=== PATIENT | male | born 1955 | race Caucasian/White ===

== ENCOUNTER 2024-09-16 15:28 | Outpatient (CLI) | payer OTHER, SELFPAY ==
[2024-09-16 16:11] LABS: Strep Group A RT-PCR NOT DETECTED (Negative)
[2024-09-16 16:20] LABS: SARS-CoV-2 RNA PCR Negative (Negative)
[2024-09-16 16:21] LABS: Influenza A QL RT-PCR Positive (Negative); Influenza B QL RT-PCR Negative (Negative); RSV RNA, RT-PCR Negative (Negative)
== END 2024-09-16 15:29 | disposition home or self-care (01) ==
PROVIDERS: PCP Family Medicine; Visit Provider Registered Nurse
DX: R68.89 Other general symptoms and signs (principal); J10.1 Influenza due to other identified influenza virus with other respiratory manifestations
CPT/HCPCS: 87637; 87651

== ENCOUNTER 2025-04-02 11:29 | Outpatient (CLI) | payer OTHER, SELFPAY ==
--- NOTE | ~2025-04-02 | CT_ITS ---
Clinical Indication: Hepatocellular carcinoma CT Scan of the Chest, Abdomen, and Pelvis with Contrast: Technique: Contiguous sections were acquired throughout the chest, abdomen, and pelvis after intraven ous administration of 100 cc of Omnipaque 350. Dose reduction technique was used on this scan by uti lizing automated exposure control and iterative reconstruction technique. The dose-length product (DL P) was 339.40 mGy-cm. Findings: Right hilar lymph node measures 13 mm in short axis. No other mediastinal or hilar lymphadenopathy. N o axillary lymphadenopathy. The mediastinal vascular structures appear normal. There is no evidence of pleural or pericardial effusion. The lungs are clear. No pulmonary nodules or infiltrates are noted. There are 4 distinct hepatic masses, with heterogeneous postcontrast enhancement. Largest masses in t he anterior right hepatic lobe measuring 6.7 cm in diameter. Multiple calcified gallstones are present. Spleen is enlarged, measuring 16 cm in length. The pancrea s, adrenals and kidneys are within normal limits. Infrarenal abdominal aortic aneurysm measures 3.7 c m in diameter, with extensive atherosclerotic calcifications present.. No lymphadenopathy. No bowel obstruction or bowel wall thickening. There is no evidence to suggest acute appendicitis. Urinary bladder is unremarkable. No pelvic mass evident. No ascites. Impression: 4 separate hepatic masses, as detailed above, compatible multifocal hepatocellular carcinoma versus o ther metastatic/neoplastic disease. Single mildly enlarged right hilar lymph node, indeterminate. Metastatic node is not excluded. Cholelithiasis. Splenomegaly. 3.7 cm infrarenal abdominal aortic aneurysm. Reviewed, dictated and finalized at [facility]. Impression: 4 separate hepatic masses, as detailed above, compatible multifocal hepatocellu lar carcinoma versus other metastatic/neoplastic disease. Single mildly enlarged right hilar lymph node, indeterminate. Metastatic node i s not excluded. Cholelithiasis. Splenomegaly. 3.7 cm infrarenal abdominal aortic aneurysm.
[2025-04-02 11:54] LABS: Hematocrit 37.3 % (37.0-46.0); Hemoglobin 12.7 g/dL (12.4-15.3); Immature Platelet Fraction Pct 2.0 % (1.0-7.0); Mean Corpuscular HGB Conc 34.0 g/dL (32-36); Mean Corpuscular Hemoglobin 32.0 pg (27.0-31.0); Mean Corpuscular Volume 94.0 fL (78.0-102.0); Platelet Count Result 54 K/mm3 (150-420); Red Blood Count 3.97 M/mm3 (4.70-6.10); White Blood Count 3.8 K/mm3 (4.8-10.8)
--- OUTSIDE RECORDS SUMMARY | 2025-04-02 12:03 | XMS_ITS | Clinical Summary ---
Author Organization [facility] Address [address] [place] [address] Care Team Providers Care Sourcing Analyst Name Role Phone Hector Rosenberg MD Unavailable [phone] Caprice Rosales MD Unavailable Krishna Gao MD Primary Care Provider Allergies Active Allergy Reactions Criticality Noted Date Comments Codeine Chest pressure,Unknown 10/01/2015 Diphenhydramine Hyperactive,Unknown 10/01/2015 Medications carvedilol (COREG) 12.5 MG tablet Take 1 tablet by mouth 2 (two) times daily. 5 Active ISOSORBIDE MONONITRATE ER 120 MG TABLET SR 24 HR 24 hr tablet TAKE 1 TABLET EVERY MORNING 30 tablet 3 9 Active PROAIR HFA 108 (90 Base) MCG/ACT inhaler INHALE TWO PUFFS BY MOUTH EVERY SIX HOURS DIRECTED 0 Active SPIRIVA HANDIHALER 18 MCG inhalation capsule INHALE THE CONTENTS OF ONE CAPSULE ONCE A DAY 0 Active nitroglycerin 0.4 MG SL tablet DISSOLVE ONE TABLET UNDER TONGUE NEEDED 0 Active pantoprazole EC 40 MG tablet Take 40 mg by mouth 2 (two) times daily. 0 Active AMLODIPINE 5 MG tablet TAKE 1 TABLET BY MOUTH EVERY DAY 30 tablet 3 1 Active isosorbide mononitrate ER (IMDUR) 120 MG 24 hr tablet Take 1 tablet (120 mg total) by mouth daily for 28 days. 28 tablet 4 Active Active Problems Problem Noted Date Diagnosed Date Near syncope 08/03/2018 Esophageal varices ([facility]) 06/10/2017 Iron deficiency 12/05/2016 Atherosclerosis of coronary artery 12/05/2016 Esophageal reflux 02/16/2016 Chronic cough 11/06/2015 Tobacco abuse 10/01/2015 Thrombocytopenia 10/01/2015 Anemia 09/30/2015 Gastrointestinal hemorrhage 09/30/2015 Liver cirrhosis ([facility]) 09/30/2015 Splenomegaly 09/30/2015 Subsequent non-ST elevation (NSTEMI) myocardial infarction ([facility]) 09/30/2015 Hyperlipidemia Hypertension Coronary artery disease of n ative artery of [place] heart with stable angina pectoris Overview (10/23/2016): small NSTEMI 06/2015 Thrombocytopenia Overview (10/23/2016): 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 Encounters Date Type Department Care Team Description 03/19/2025 Travel from Last 3 Months Family History Medical History Relation Comments Heart Attack Brother Stent Cardiac Brother Valve Disease Brother Heart Attack Father [place] Father Stent Cardiac Mother Relation Status Comments Brother Alive Father Mother Alive Social History Tobacco Use Types Packs/Day Years Used Date Smoking Tobacco: Every Day Cigarettes 0.5 58 Smokeless Tobacco: Never Tobacco Cessation:Ready to Q uit: No; Counseling Given: Yes Alcohol Use Standard Drinks/Week Comments No 0 (1 standard drink = 0.6 oz pur e alcohol) Sex and Gender Information Value Date Recorded Sex Assigned at Male 11/07/2024 9:55 AM RECREATION INSTRUCTOR Legal Sex Male 2:01 AM CDT Gender Identity Not on file Sexual Orientation Not on file Occupation Industry Job Start Date Job End Date Disability Not on file Not on file Not on file Last Filed Vital Signs Vital Sign Reading Time Taken Comments Blood Pressure 137/74 06/27/2024 3:15 PM CDT Pulse 69 06/27/2024 3:15 PM CDT Temperature 36.3 C (97.4 F) 06/27/2024 1:14 PM CDT Respiratory Rate 17 06/27/2024 3:15 PM CDT Oxygen Saturation 97% 06/27/2024 3:15 PM CDT Inhaled Oxygen Concentration - - Weight 59 kg (130 lb) 06/27/2024 1:14 PM CDT Height 170.2 cm (5' 7) 06/27/2024 1:14 PM CDT Body Mass Index 20.36 06/27/2024 1:14 PM CDT Plan of Treatment Health Maintenance Due Date Last Done Comments Colorectal Cancer Screening Colonoscopy (10 Years) 1957 Zoster Vaccines (1 of 2) 2007 Pneumococcal Vaccine: 50+ Years (2 of 2 - PCV) 09/18/2015 09/18/2014 RSV Immunization or 60+ Years (1 - Risk 60-74 years 1-dose series) 2017 ASCVD LDL 02/21/2019 02/21/2018 COVID-19 Vaccine ( - season) 2024 DTaP, Tdap and Td Vaccines (2 - Td or Tdap) 08/20/2029 08/20/2019, 09/18/2014 Hepatitis C Completed 07/08/2020, 12/2018, 08/21/2019, Additional history exists AAA SCREENING Completed 03/16/2023, 02/17, 01/19/2023, Additional history exists Meningococcal B Vaccine Aged Out No l onger eligible based on patient's age to complete this topic Meningococcal Vaccine Aged Out No adolfo eden eligible based on patient's age to complete this topic RSV Immunizations Under 20 Months Aged Out No longer eligible based on patient's age to complete this topic Procedures Procedure Name Priority Date/Time Associated Diagnosis Comments CT CHEST W CON Routine 09/27/2019 9:56 AM RECREATION INSTRUCTOR Abnormal chest xray LIPID PANEL Routine 02/21/2018 from Last 3 Months or Most Recently Relevant to Health Maintenance Results * CT CHEST W CON (09/27/2019 9:56 AM RECREATION INSTRUCTOR) Anatomical Region Laterality Modality Chest Computed Tomogra phy 09/27/2019 2:13 PM RECREATION INSTRUCTOR Impressions 09/27/2019 2:24 PM RECREATION INSTRUCTOR Impression: 1. Central bronchial wall thickening could indicate bronchitis and/or be attributable to smoking. 2. 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 3. Vascular disease as noted. Partially visualized is an infrarenal abdominal aortic aneurysm. Further workup is recommended. 4. Liver cirrhosis. Indeterminate lesions in the right lobe of the liver. Liver MRI is recommended. 5. Portal venous hypertension given the varices, splenomegaly. Heterogeneous spleen of indeterminate significance. 6. Cholelithiasis without gallbladder wall thickening. No sign of biliary obstruction. Interpreted By: Jared Salmeron, 09/27/2019 2:13 PM Narrative 09/27/2019 2:24 PM RECREATION INSTRUCTOR Date: 09/27/2019 9:56 AM. Exam: CT CHEST W CON Comparison: CT low-dose lung cancer screening dated 04/01/2019. CT chest dated 11/18/2015. Technique: Thin section images were obtained of the chest with IV contrast. 95 ml of Isovue-370 thru an existing IV site in the left antecubital fossa. Coronal and sagittal reconstructions. A dose lowering technique was used for this procedure, which may include, but is not limited to, dose reduction technique, automated exposure control, the use of iterative reconstruction, and ALARA (As Low As Reasonably Achievable)/ Image gently techniques. History: Productive cough. Abnormal chest x-ray. Findings: CHEST: The heart size is normal without pericardial effusion. There is scattered calcified coronary arterial disease. There is calcified disease in the thoracic aorta, but no aneurysm nor dissection. The great vessels originate without compromise. The central pulmonary arteries are patent. There is no lymphadenopathy within the chest. The tracheal and main bronchial airways are patent. There is central bronchial wall thickening which could indicate bronchitis or possibly be attributable to smoking. There is scant mucus layering in the yessenia. There are scattered nodules associated with the oblique fissures likely intrafissural lymph nodes. There are a few scattered small thin-walled cysts in the upper lungs which are stable. This is nonspecific, but could signify Langerhans cell histiocytosis. There are no consolidations nor pleural effusions. Visualized upper abdomen: There is a cirrhotic configuration of the liver. There are scattered small hypodense lesions in the right lobe of the liver some of which may represent cysts. Other lesions are indeterminate such as a 1.5 cm lesion in the superior anterior right lobe of the liver as seen on series 904 image 90. Overall, liver MRI is recommended. There is cholelithiasis and minimal gallbladder wall thickening. The bile ducts are normal in caliber. There is splenomegaly with scattered heterogeneity of the spleen. There are upper abdominal varices, recanalized umbilical vein, varices in the gastrohepatic ligament and paraesophageal varices. This indicates portal venous hypertension. The pancreas and adrenal glands appear normal. There is no hydronephrosis of the kidneys. There is considerable mixed plaque disease of the abdominal aorta. Partially visualized is a fusiform aneurysm of the abdominal aorta measuring at least 2.7 cm. Further workup is recommended. There are prominent, but nonenlarged lymph nodes in the retroperitoneum. The visualized intestines show no acute abnormality. There is no inflammation or free fluid in the upper abdomen. Osseous structures: There are moderate degenerative changes in the lower cervical spine. There is focal moderate to advanced disc disease at T11-T12. There are no acute osseous abnormalities. Procedure Note Jared Salmeron MD - 09/27/2019 Date: 09/27/2019 9:56 AM. Exam: CT CHEST W CON Comparison: CT low-dose lung cancer screening dated 04/01/2019. CT chest dated 11/18/2015. Technique: Thin section images were obtained of the chest with IVcontrast. 95 ml of Isovue-370 thru an existing IV site in the left antecubitalfossa. Coronal and sagittal reconstructions. A dose lowering technique was used for this procedure, which may include, but is not limited to, dose reduction technique, automated exposure control, the use of iterative reconstruction, and ALARA (As Low As Reasonably Achievable)/ Imagegently techniques. History: Productive cough. Abnormal chest x-ray. Findings: CHEST: The heart size is normal without pericardial effusion. There is scattered calcified coronary arterial disease. There is calcifieddisease in the thoracic aorta, but no aneurysm nor dissection. The great vessels originate without compromise. The central pulmonary arteries are patent. There is no lymphadenopathy within the chest. The tracheal and main bronchial airways are patent. There is central bronchial wall thickening which could indicate bronchitis or possibly be attributable to smoking. There is scant mucus layering in the yessenia. There are scattered nodules associated with the oblique fissures likely intrafissural lymph nodes. There are a few scattered small thin-walled cysts in the upper lungs which are stable. This is nonspecific, butcould signify Langerhans cell histiocytosis. There are no consolidations nor pleural effusions. Visualized upper abdomen: There is a cirrhotic configuration of theliver. There are scattered small hypodense lesions in the right lobe of theliver some of which may represent cysts. Other lesions are indeterminate suchas a 1.5 cm lesion in the superior anterior right lobe of the liver as seenon series 904 image 90. Overall, liver MRI is recommended. There is cholelithiasis and minimal gallbladder wall thickening. The bile ductsare normal in caliber. There is splenomegaly with scattered heterogeneity of the spleen. There are upper abdominal varices, recanalized umbilicalvein, varices in the gastrohepatic ligament and paraesophageal varices. This indicates portal venous hypertension. The pancreas and adrenal glands appear normal. There is nohydronephrosis of the kidneys. There is considerable mixed plaque disease of theabdominal aorta. Partially visualized is a fusiform aneurysm of the abdominalaorta measuring at least 2.7 cm. Further workup is recommended. There are prominent, but nonenlarged lymph nodes in the retroperitoneum. The visualized intestines show no acute abnormality. There is noinflammation or free fluid in the upper abdomen. Osseous structures: There are moderate degenerative changes in the lower cervical spine. There is focal moderate to advanced disc disease at T11-T12. There are no acute osseous abnormalities. Impression: 1. Central bronchial wall thickening could indicate bronchitis and/or be attributable to smoking. 2. 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 3. Vascular disease as noted. Partially visualized is an infrarenal abdominal aortic aneurysm. Further workup is recommended. 4. Liver cirrhosis. Indeterminate lesions in the right lobe of theliver. Liver MRI is recommended. 5. Portal venous hypertension given the varices, splenomegaly. Heterogeneous spleen of indeterminate significance. 6. Cholelithiasis without gallbladder wall thickening. No sign ofbiliary obstruction. Interpreted By: Jared Salmeron, 09/27/2019 2:13 PM us Natanael Temple MD CT Final Result * LIPID PANEL (02/21/2018) CHOLESTEROL 118 HDL 35 TRIGLYCERIDES 81 LDL (CALCULATED) 67 VLDL CALCULATION 16 02/21/2018 us Doc [facility] LABORATORY Final Result from Last 3 Months or Most Recently Relevant to Health Maintenance Insurance [employer] Care Teams Sourcing Analyst Relationship Specialty Start Date End Date Krishna Gao MD [address] [place] [phone] PCP - General FAMILY PRACTICE 06/27/24 Hector Rosenberg MD [place] Recreation Teacher CARDIOVASCULAR DISEASE 10/09/17 Caprice Rosales MD Consulting Physician INFECTIOUS DISEASE 04/03/19
--- OUTSIDE RECORDS SUMMARY | 2025-04-02 12:03 | XMS_ITS | Encounter Summary ---
Author Organization [facility] Address [address] [place] [address] Care Team Providers Care Electronic Security Technician Name Role Phone Natanael Temple MD Primary Care Provider [phone] Hector Rosenberg MD Unavailable [phone]- [phone] Caprice Rosales MD Unavailable Krishna Gao MD Primary Care Provider [phone]- [phone] Encounter Details Date Type Department Care Team (Late st Contact Info) Description 02/02/2016 Abstract [facility] [address] [place] [phone] Nader Dsohi MD Social History Tobacco Use Types Packs/Day Years Used Date Smoking Tobacco: Smoker, Current Status Unknown Cigarettes Alcohol Use Standard Drinks/Week Comments No 0 (1 standard drink = 0.6 oz pur e alcohol) Sex and Gender Information Value Date Recorded Sex Assigned at Male 11/07/2024 9:55 AM STORE DELI 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 Legal Sex Male 2:01 AM CDT Gender Identity Not on file Sexual Orientation Not on file Occupation Industry Job Start Date Job End Date Disability Not on file Not on file Not on file documented as of this encounter Plan of Treatment Not on file documented as of this encounter Visit Diagnoses Not on filedocumented in this encounter Care Teams Electronic Security Technician Relationship Specialty Start Date End Date Natanael Temple MD [address] [place] [phone] PCP - General FAMILY PRACTICE 10/20/16 06/26/24 Krishna Gao MD [address] [place] [phone] PCP - General FAMILY PRACTICE 06/27/24 Hector Rosenberg MD [address] [place] [phone] [place] Area Attendant CARDIOVASCULAR DISEASE 10/09/17 Caprice Rosales MD [address] [place] [phone] Consulting Physician INFECTIOUS DISEASE 04/03/19 documented as of this encounter
--- OUTSIDE RECORDS SUMMARY | 2025-04-02 12:03 | XMS_ITS | Encounter Summary ---
Author Organization [facility] Address [address] [place] [address] Care Team Providers Care Supervisor Rose Grading Name Role Phone Natanael Temple MD Primary Care Provider [phone] Hector Rosenberg MD Unavailable [phone]- [phone] Caprice Rosales MD Unavailable Krishna Gao MD Primary Care Provider Encounter Details Date Type Department Care Team (Late st Contact Info) Description 03/15/2016 [facility] [address] [place] [phone] Nader Doshi MD Social History Tobacco Use Types Packs/Day Years Used Date Smoking Tobacco: Smoker, Current Status Unknown Sex and Gender Information Value Date Recorded Sex Assigned at Male 11/07/2024 9:55 AM ICHTHYOLOGY TEACHER Legal Sex Male 2:01 AM CDT Gender Identity Not on file Sexual Orientation Not on file documented as of this encounter Plan of Treatment Not on file documented as of this encounter Procedures Procedure Name Priority Date/Time Associated Diagnosis Comments BASIC METABOLIC PANEL Routine 02/29/2016 documented in this encounter Results * BASIC METABOLIC PANEL (02/29/2016) SODIUM S/P/B 137 POTASSIUM S/P/B 4.4 CO2 27.0 CHLORIDE S/P/B 106 GLUCOSE 114 CALCIUM S/P/B 8.8 BUN 7 CREATININE S/P/B 0.83 EGFR NON-AFR. AMER. >60 02/29/2016 Nader Doshi MD LABORATORY Final Result documented in this encounter Visit Diagnoses Not on filedocumented in this encounter Care Teams Supervisor Rose Grading Relationship Specialty Start Date End Date Natanael Temple MD [address] [place], [place] [phone] PCP - General FAMILY PRACTICE 10/20/16 06/26/24 Krishna Gao MD [address] [place] [phone] PCP - General FAMILY PRACTICE 06/27/24 Hector Rosenberg MD [address] [place] [phone] [place] Director Of Housing CARDIOVASCULAR DISEASE 10/09/17 Caprice Rosales MD [address] [place] [phone] Consulting Physician INFECTIOUS DISEASE 04/03/19 documented as of this encounter
--- OUTSIDE RECORDS SUMMARY | 2025-04-02 12:04 | XMS_ITS | Clinical Summary ---
Author Organization [facility] Address [address] [place] [address] Phone Care Team Providers Care Mobile Application Development Lead Name Role Phone Inocente Beltran APRN, JANI Primary Care Provid er Allergies Active Allergy Reactions Criticality Noted Date Comments Codeine Other (see Comments) High 07/11/2019 Chest pressure Medications amLODIPine (NORVASC) 5 MG Tablet Take 1 Tablet by mouth daily. 06/25/2021 Active atorvastatin (LIPITOR) 20 MG Tablet Take 1 Tablet by mouth daily. 07/13/2015 Active carvedilol (COREG) 12.5 MG Tablet Take 1 Tablet by mouth 2 times daily. 07/13/2015 Active isosorbide mononitrate (IMDUR) 120 MG TABLET SR 24 HR Take 1 Tablet by mouth daily. 09/09/2019 Active omeprazole (PriLOSEC) 20 MG CAPSULE DELAYED RELEASE Take 20 mg by mouth daily. Active Immunizations Immunization Administration Dates Next Due TDAP Vaccine 08/20/2019 Family History Medical History Relation Name Comments Heart Attack Father Chronic Obstructive Pulmonary Disease Mother Relation Name Status Comments Father Mother Social History Tobacco Use Types Packs/Day Years Used Date Smoking Tobacco: Some Days Cigarettes Smokeless Tobacco: Never Tobacco Cessation:Ready to Q uit: Not Asked; Counseling Given: Not Answered Alcohol Use Standard Drinks/Week Comments Never 0 (1 standard drink = 0.6 oz pur e alcohol) AUDIT-C Answer Date Recorded Frequency of Alcohol Consumption Never 07/11/2019 Average Number of Drinks Not on file 019 Frequency of Binge Drinking Not on file 06/19 Sex and Gender Information Value Date Recorded Sex Assigned at Not on file Legal Sex Male 8:05 PM CDT Gender Identity Not on file Sexual Orientation Not on file Last Filed Vital Signs Vital Sign Reading Time Taken Comments Blood Pressure 116/68 09/01/2022 9:19 AM SUPERINTENDENT MARINE Pulse 75 09/01/2022 9:19 AM SUPERINTENDENT MARINE Temperature 36.3 C (97.4 F) 08/20/2019 4:44 PM SUPERINTENDENT MARINE Respiratory Rate 17 08/20/2019 5:20 PM SUPERINTENDENT MARINE Oxygen Saturation 98% 08/20/2019 5:20 PM SUPERINTENDENT MARINE Inhaled Oxygen Concentration - - Weight 63.5 kg (140 lb) 09/01/2022 9:03 AM SUPERINTENDENT MARINE Height 170.2 cm (5' 7) 09/01/2022 9:03 AM SUPERINTENDENT MARINE Body Mass Index 21.93 09/01/2022 9:03 AM SUPERINTENDENT MARINE Plan of Treatment Health Maintenance Due Date Last Done Comments Cologuard 2002 Colonoscopy 2002 Colorectal Cancer Screening 2002 Immunochemical Fecal Occult Blood 2002 Pneumococcal Immunization (50+ years) (1 of 1 - PCV) 2007 Zoster Immunization (1 of 2) 2007 SARS-COV-2 Immunization ( - season) 2024 05/03/2021, 04/12/2021 Influenza Immunization (#1) 05/19/202506/18, 07/17/2018, 05/24/2017, Additional history exists Respiratory Syncytial Virus (RSV) Immunization (Adult) (1 - 1-dose 75+ series) 2032 DTaP/Tdap/Td Immunization Discontinued 08/20/2019 Hepatitis B Immunization Aged Out No longer eligible based on patient's age to complete this topic Human Papillomavirus (HPV) Immunization Aged Out No longer eligible based on patient's age to complete this topic Meningococcal Immunization (ACWY) Aged Out No longer eligible based on patient's age to complete this topic Rotavirus Immunization Aged Out No lo nger eligible based on patient's age to complete this topic Insurance MEDICAID [employer] Care Teams Mobile Application Development Lead Relationship Specialty Start Date End Date Inocente Beltran APRN, POWDER MONKEY [address] [address] PCP - General Advanced Practice Nurse 06/21/22
--- OUTSIDE RECORDS SUMMARY | 2025-04-02 12:04 | XMS_ITS | Encounter Summary ---
Author Organization [facility] Address [address] [place] [address] Care Team Providers Care Field Specialist Name Role Phone Natanael Temple MD Primary Care Provider [phone] Hector Rosenberg MD Unavailable [phone]- [phone] Caprice Rosales MD Unavailable Krishna Gao MD Primary Care Provider [phone] Encounter Details Date Type Department Care Team (Late st Contact Info) Description 12/02/2017 Abstract [facility] [address] [place] [address] , Generic MD Roselia Social History Tobacco Use Types Packs/Day Years Used Date Smoking Tobacco: Smoker, Current Status Unknown Cigarettes 0.5 56 Smokeless Tobacco: Never Alcohol Use Standard Drinks/Week Comments No 0 (1 standard drink = 0.6 oz pur e alcohol) Sex and Gender Information Value Date Recorded Sex Assigned at Male 11/07/2024 9:55 AM 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 INSPECTOR Legal Sex Male 2:01 AM CDT Gender Identity Not on file Sexual Orientation Not on file Occupation Industry Job Start Date Job End Date Disability Not on file Not on file Not on file documented as of this encounter Plan of Treatment Not on file documented as of this encounter Visit Diagnoses Not on filedocumented in this encounter Care Teams Field Specialist Relationship Specialty Start Date End Date Natanael Temple MD [address] [place] [phone] PCP - General FAMILY PRACTICE 10/20/16 06/26/24 Krishna Gao MD [address] [place] [phone] PCP - General FAMILY PRACTICE 06/27/24 Hector Rosenberg MD [address] [place] [phone] [place] Preload Supervisor CARDIOVASCULAR DISEASE 10/09/17 Caprice Rosales MD [address] [place] [phone] Consulting Physician INFECTIOUS DISEASE 04/03/19 documented as of this encounter
--- OUTSIDE RECORDS SUMMARY | 2025-04-02 12:04 | XMS_ITS | Encounter Summary ---
Author Organization [facility] Address [address] [place] [address] Care Team Providers Care Funeral Director'S Assistant Name Role Phone Natanael Temple MD Primary Care Provider [phone] Hector Rosenberg MD Unavailable [phone]- [phone] Caprice Rosales MD Unavailable Krishna Gao MD Primary Care Provider [phone] Encounter Details Date Type Department Care Team (Late st Contact Info) Description 04/09/2018 Abstract [facility] [address] [place] [phone] Non-Staff, Provider Social History Tobacco Use Types Packs/Day Years Used Date Smoking Tobacco: Smoker, Current Status Unknown Cigarettes 0.5 56 Smokeless Tobacco: Never Alcohol Use Standard Drinks/Week Comments No 0 (1 standard drink = 0.6 oz pur e alcohol) Sex and Gender Information Value Date Recorded Sex Assigned at Male 11/07/2024 9:55 AM RIDING COACH Legal Sex Male 2:01 AM CDT Gender Identity Not on file Sexual Orientation Not on file Occupation Industry Job Start Date Job End Date Disability Not on file Not on file Not on file documented as of this encounter Plan of Treatment Not on file documented as of this encounter Procedures Procedure Name Priority Date/Time Associated Diagnosis Comments PLATELETS LEUKOCYTES REDUCED Routine 09/21/2017 3:43 PM RIDING COACH CBC (OUTSIDE LAB) Routine 09/21/2017 documented in this encounter Results * CBC (OUTSIDE LAB) (09/21/2017) WBC 3.8 HGB 13.1 HCT 39.1 PLT 43 RBC 4.30 MCV 91 MCH 30.5 MCHC 33.5 RDW 15.3 09/21/2017 Provider Non-Staff LAB-OUTSIDE/ABSTRACTED Final Result documented in this encounter Visit Diagnoses Not on filedocumented in this encounter Care Teams Funeral Director'S Assistant Relationship Specialty Start Date End Date Natanael Temple MD [address] [place] [address] PCP - General FAMILY PRACTICE 10/20/16 06/26/24 Krishna Gao MD [address] [place] [address] PCP - General FAMILY PRACTICE 06/27/24 Hector Rosenberg MD [address] [place] [address] [place] [employer] Worker CARDIOVASCULAR DISEASE 10/09/17 Caprice Rosales MD [address] [place], [place] [id number] Consulting Physician INFECTIOUS DISEASE 04/03/19 documented as of this encounter
--- OUTSIDE RECORDS SUMMARY | 2025-04-02 12:04 | XMS_ITS | Encounter Summary ---
Author Organization [facility] Address [facility] [place] [address] Care Team Providers Care Security Monitor Name Role Phone Natanael Temple MD Primary Care Provider [phone] Hector Rosenberg MD Unavailable [phone]- [phone] Caprice Rosales MD Unavailable Krishna Gao MD Primary Care Provider Encounter Details Date Type Department Care Team (Late st Contact Info) Description 02/23/2019 Abstract [facility] [address] [place] [address] , Generic MD Roselia Social History Tobacco Use Types Packs/Day Years Used Date Smoking Tobacco: Every Day Cigarettes 0.5 56 Smokeless Tobacco: Never Alcohol Use Standard Drinks/Week Comments No 0 (1 standard drink = 0.6 oz pur e alcohol) Sex and Gender Information Value Date Recorded Sex Assigned at Male 11/07/2024 9:55 AM BRANCH EXAMINER Legal Sex Male 2:01 AM CDT Gender Identity Not on file Sexual Orientation Not on file Occupation Industry Job Start Date Job End Date Disability Not on file Not on file Not on file documented as of this encounter Plan of Treatment Not on file documented as of this encounter Visit Diagnoses Not on filedocumented in this encounter Care Teams Security Monitor Relationship Specialty Start Date End Date Natanael Temple MD [address] [place] [phone] PCP - General FAMILY PRACTICE 10/20/16 06/26/24 Krishna Gao MD [address] [place] [phone] PCP - General FAMILY PRACTICE 06/27/24 Hector Rosenberg MD [address] [place] [phone] [employer] Keeper CARDIOVASCULAR DISEASE 10/09/17 Caprice Rosales MD [address] [place] [phone] Consulting Physician INFECTIOUS DISEASE 04/03/19 documented as of this encounter
--- OUTSIDE RECORDS SUMMARY | 2025-04-02 12:04 | XMS_ITS | Referral Summary ---
Author Organization [facility] Address [address] [place] [address] Care Team Providers Care Sewing Supervisor Name Role Phone Krishna Gao MD Primary Care Provider Chantell Michael MD Unavailable Henry Gr MD Unavailable [phone] Nick Leal MD Unavailable [phone] Allergies Active Allergy Reactions Criticality Noted Date Comments Diphenhydramine Anxiety Low 06/11/2022 Codeine Sweating,Other (See comments) High 10/01/2015 Other reaction(s): Chest pressure, Unknown Chest pressure Medications atorvastatin (LIPITOR) 20 mg tablet Take 1 tablet (20 mg total) by mouth daily Active carvedilol (COREG) 12.5 mg tablet Take 1 tablet (12.5 mg total) by mouth 2 (two) times a day with meals Active isosorbide mononitrate ER (IMDUR) 120 mg 24 hr tablet Take 1 tablet (120 mg total) by mouth daily Active ProAir HFA 90 mcg/actuation inhaler INHALE TWO PUFFS BY MOUTH EVERY SIX HOURS DIRECTED 08/10/20 Active amLODIPine (NORVASC) 5 mg tablet Take 1 tablet (5 mg total) by mouth daily 08/10/20 20 Active nitroglycerin (NITROSTAT) 0.[address] 1 tablet (0.6 mg total) under the tongue every 5 (five) minutes as needed for chest pain Active ferrous sulfate 325 mg (65 mg of elemental iron) tablet Take 1 tablet (325 mg total) by mouth 2 (two) times a day 12/29/19 Active Spiriva with HandiHaler 18 mcg per inhalation capsule PLEASE SEE ATTACHED FOR DETAILED DIRECTIONS 12/30/19 Active psyllium, aspartame, SF (METAMUCIL SF) 3.4 gram packet Take 2 packets by mouth daily 60 packet 11 01/23/20 Active docusate sodium (COLACE) 100 mg capsuleIndicati ons:constipatio n Take 1 capsule (100 mg total) by mouth daily 30 capsule 3 01/23/20 Active phenylephrine-c ocoa butter (PREPARATION H) 0.25-88.44 % suppositoryIndi cations:Rectal Pain Insert 1 suppository into the rectum 4 (four) times a day 120 suppository 3 01/22/[address] (PROTONIX) 40 mg EC tabletIndicatio ns:GI Bleed Take 1 tablet (40 mg total) by mouth 2 (two) times a day 60 tablet 1 03/19/20 Active oxyCODONE (ROXICODONE) 5 mg immediate release tabletIndicatio ns:Pain Take 1 tablet (5 mg total) by mouth every 4 (four) hours as needed for pain 20 tablet 03/19/20 Active Active Problems Problem Noted Date Diagnosed Date Moderate protein-calorie malnutrition 03/18/2023 Colitis 03/16/2023 Cellulitis of right lower extremity 01/19/2023 Sepsis 01/19/2023 Coronary artery disease 01/19/2023 Cirrhosis 01/19/2023 History of hepatitis C 01/19/2023 COPD (chronic obstructive pulmonary disease) 12/2022 Psoriasis 01/19/2023 GERD (gastroesophageal reflux disease) History of esophageal varices 01/19/2023 Thrombocytopenia 01/19/2023 Chest pain 07/20/2022 Hypertension 07/20/2022 Hyperlipidemia 07/20/2022 Encounter for screening colonoscopy 09/03/2020 Overview (09/03/2020): Added automatically from request for surgery [id number] Elevated d-dimer Abdominal aortic aneurysm (AAA) without rupture Immunizations Immunization Administration Dates Next Due Influenza, Quadrivalent, Spl it, Intramuscular 05/24/2017 Influenza, Quadrivalent, Spl it, Preservative Free, Intramuscular 07/04/2019,07/17/2018,07/08/2015 Influenza, Trivalent, Preser vative Free, Intramuscular 06/03/2016 Tdap 08/20/2019 Social History Tobacco Use Types Packs/Day Years Used Date Smoking Tobacco: Every Day Cigarettes Smokeless Tobacco: Never Tobacco Cessation:Ready to Q uit: Not Asked; Counseling Given: Not Answered Alcohol Use Standard Drinks/Week Comments Never 0 (1 standard drink = 0.6 oz pur e alcohol) Social Connection and Isolation Panel [NHANES] A nswer Date Recorded In a typical week, how many times do you talk on the phone with family, friends, or neighbors? Three times a week 03/17/2023 How often do you get togethe r with friends or relatives? Once a week 03/17/2023 How often do you attend chur ch or pentecostalism services? Never 03/17/2023 Do you belong to any clubs o r organizations such as orthodox groups, unions, fraternal or athletic groups, or school groups? No 03/17/2023 How often do you attend meet ings of the clubs or organizations you belong to? Never 03/17/2023 Are you , , di vorced, , never , or living with a partner? 03/17/2023 AUDIT-C Answer Date Recorded Q1: How often do you have a drink containing alc ohol? 2-4 times a month 03/16/2023 Q2: How many drinks containi ng alcohol do you have on a typical day when you are drinking? 1 or 2 03/16/2023 Q3: How often do you have si x or more drinks on one occasion? Never 03/16/2023 Overall Financial Resource Strain (CARDIA) Answe r Date Recorded How hard is it for you to pa y for the very basics like food, housing, medical care, and heating? Somewhat hard 03/17/2023 Hunger Vital Sign Answer Date Recorded Within the past 12 months, y ou worried that your food would run out before you got the money to buy more. Never true 03/17/20 23 Within the past 12 months, t he food you bought just didn't last and you didn't have money to get more. Never true 03/17/2023 PRAPARE - Transportation Answer Date Re corded In the past 12 months, has l ack of transportation kept you from medical appointments or from getting medications? No 02/18 In the past 12 months, has l ack of transportation kept you from meetings, work, or from getting things needed for daily living? No 03/17/2023 Housing Stability Vital Sign Answer Joshua e Recorded In the last 12 months, was t here a time when you were not able to pay the mortgage or rent on time? No 03/17/2023 In the last 12 months, how many places have you lived? 1 03/17/2023 In the last 12 months, was t here a time when you did not have a steady place to sleep or slept in a [place] facility (including now)? No 03/17/2023 Personal Safety Answer Date Recorded Getting School Help Needed Not on file 03/23 Sex and Gender Information Value Date Recorded Sex Assigned at Not on file Legal Sex Male 9:35 AM PLANT INSPECTOR Gender Identity Not on file Sexual Orientation Not on file Last Filed Vital Signs Vital Sign Reading Time Taken Comments Blood Pressure 122/66 03/19/2023 7:23 AM CDT Pulse 76 03/19/2023 7:23 AM CDT Temperature 36.3 C (97.3 F) 03/19/2023 7:23 AM CDT Respiratory Rate 16 03/19/2023 7:23 AM CDT Oxygen Saturation 95% 03/19/2023 7:23 AM CDT Inhaled Oxygen Concentration - - Weight 58.5 kg (128 lb 15.5 oz) 023 10:20 PM CDT Height 170.2 cm (5' 7) 03/16/2023 10:2 0 PM CDT Body Mass Index 20.2 03/16/2023 10:20 PM CDT Plan of Treatment Not on file Procedures Procedure Name Priority Date/Time Associated Diagnosis Comments CT ABDOMEN PELVIS W CONTRAST ED 03/16/2023 6:38 PM CDT HEPATITIS PANEL, ACUTE Routine 01/20/2023 3:00 AM CDT COLONOSCOPY 09/08/2020 7:47 AM PLANT INSPECTOR from Last 3 Months or Most Recently Relevant to Health Maintenance Results * CT Abdomen Pelvis W Contrast (03/16/2023 6:38 PM CDT) Anatomical Region Laterality Modality Body N/A Computed Tomogra phy 03/16/2023 6:46 PM CDT Narrative 03/16/2023 6:57 PM CDT EXAM DESCRIPTION: CT ABDOMEN PELVIS W CONTRAST REASON FOR STUDY: RLQ abdominal pain, appendicitis suspected (Age => 16y) Abdominal pain, decreased appetite, diarrhea for 5 days Hx appendectomy TECHNIQUE: CT scan of the abdomen and pelvis performed with intravenous and without oral contrast using helical scanning technique with dynamic intravenous contrast injection. Reconstructed coronal and sagittal MPR images reviewed. All images stored on PACS. Automated exposure control was used as a dose optimization technique for this examination. CONTRAST TYPE/DOSE: 100mL of IOVERSOL 350 MG IODINE/ML INTRAVENOUS SOLUTION injected via intravenous COMPARISON: 01/19/2023 REFERENCE: Per ACR white paper recommendations, unless otherwise specified no follow-up imaging is recommended for incidental renal and adrenal lesions per consensus recommendations based on imaging criteria. Further lab evaluation could be pursued based on clinical findings. FINDINGS: LOWER CHEST: No significant pulmonary abnormalities. No effusion. LIVER: The liver demonstrates a nodular contour characteristic of cirrhosis. There are 2 enhancing masses within the right hepatic lobe measuring 3 cm x 4.4 cm anteriorly and 4.6 cm x 3.9 cm, not significantly changed in size compared with 01/19/2023, but the lesions are concerning for neoplasms including hepatocellular carcinoma. Correlate clinically. Stable 8 mm probable cyst in the posteroinferior right hepatic lobe. Portal venous hypertension with recanalization of the umbilical vein and there are esophageal and perisplenic varices. GALLBLADDER: Stones. No wall thickening or pericholecystic fluid. BILE DUCTS: No intrahepatic or extrahepatic ductal dilatation. SPLEEN: Enlarged at 16.4 cm. PANCREAS: No identified cystic or solid masses. No significant calcifications. No adjacent inflammation or peripancreatic fluid collections. Pancreatic duct not dilated. ADRENALS: Normal. KIDNEYS/URINARY TRACT: No identified significant cystic or solid masses. No visualized stones. No hydronephrosis or hydroureter. Symmetric enhancement. Urinary bladder is unremarkable. GI: There is diffuse thickening of the wall of the colon, primarily the cecum and ascending colon with inflammatory stranding in the surrounding fat suggesting inflammatory or infectious colitis. No bowel obstruction or abscess. The appendix is not definitely visualized. PERITONEUM: Trace free fluid within the pelvis. No evidence of free air. RETROPERITONEUM: No mass or adenopathy. REPRODUCTIVE: No significant abnormality. VASCULATURE: Stable 3.4 cm infrarenal abdominal aortic aneurysm. Atherosclerosis of the aorta. MUSCULOSKELETAL: Multilevel degenerative changes are present without fracture. No concerning lesions are present. OTHER: No other abnormality. IMPRESSION: Diffuse thickening of the wall of the colon, primarily the cecum and ascending colon with inflammatory stranding in the surrounding fat suggesting inflammatory or infectious colitis. No bowel obstruction or abscess. The liver demonstrates a nodular contour characteristic of cirrhosis. There are 2 enhancing masses within the right hepatic lobe measuring 3 cm x 4.4 cm anteriorly and 4.6 cm x 3.9 cm, not significantly changed in size compared with 01/19/2023, but the lesions are concerning for neoplasms including hepatocellular carcinoma. Stable 8 mm probable cyst posteroinferior right hepatic lobe. Portal venous hypertension with recanalization of the umbilical vein and esophageal and perisplenic varices. Splenomegaly. Cholelithiasis. Stable 3.4 cm infrarenal abdominal aortic aneurysm. 3.0-3.4 cm Recommended ultrasound follow up every 3 years per Society for Vascular Surgery Guidelines: J Vasc Surgery 2008 50: s2s49; updated Sep 2017 J Vasc Surgery 67:277 THIS IS AN ELECTRONICALLY VERIFIED FINAL REPORT 03/16/2023 6:57 PM - Electronically signed by Jose Nelson M.D. KT: KT Report ID: [id number] Reading Location: [place] [address] Procedure Note Jose Nelson MD - 03/16/2023 EXAM DESCRIPTION: CT ABDOMEN PELVIS W CONTRAST REASON FOR STUDY: RLQ abdominal pain, appendicitis suspected (Age =>16y) Abdominal pain, decreased appetite, diarrhea for 5 days Hx appendectomy TECHNIQUE: CT scan of the abdomen and pelvis performed with intravenousand without oral contrast using helical scanning technique with dynamic intravenous contrast injection. Reconstructed coronal and sagittal MPRimages reviewed. All images stored on PACS. Automated exposure control was usedas a dose optimization technique for this examination. CONTRAST TYPE/DOSE: 100mL of IOVERSOL 350 MG IODINE/ML INTRAVENOUSSOLUTION injected via intravenous COMPARISON: 01/19/2023 REFERENCE: Per ACR white paper recommendations, unless otherwise specifiedno follow-up imaging is recommended for incidental renal and adrenal lesionsper consensus recommendations based on imaging criteria. Further labevaluation could be pursued based on clinical findings. FINDINGS: LOWER CHEST: No significant pulmonary abnormalities. No effusion. LIVER: The liver demonstrates a nodular contour characteristic ofcirrhosis. There are 2 enhancing masses within the right hepatic lobe measuring 3 cmx 4.4 cm anteriorly and 4.6 cm x 3.9 cm, not significantly changed in size compared with 01/19/2023, but the lesions are concerning for neoplasms including hepatocellular carcinoma. Correlate clinically. Stable 8 mm probable cyst in the posteroinferior right hepatic lobe. Portal venous hypertension with recanalization of the umbilical vein and there are esophageal and perisplenic varices. GALLBLADDER: Stones. No wall thickening or pericholecystic fluid. BILE DUCTS: No intrahepatic or extrahepatic ductal dilatation. SPLEEN: Enlarged at 16.4 cm. PANCREAS: No identified cystic or solid masses. No significant calcifications. No adjacent inflammation or peripancreatic fluidcollections. Pancreatic duct not dilated. ADRENALS: Normal. KIDNEYS/URINARY TRACT: No identified significant cystic or solid masses.No visualized stones. No hydronephrosis or hydroureter. Symmetricenhancement. Urinary bladder is unremarkable. GI: There is diffuse thickening of the wall of the colon, primarily the cecum and ascending colon with inflammatory stranding in the surroundingfat suggesting inflammatory or infectious colitis. No bowel obstruction or abscess. The appendix is not definitely visualized. PERITONEUM: Trace free fluid within the pelvis. No evidence of freeair. RETROPERITONEUM: No mass or adenopathy. REPRODUCTIVE: No significant abnormality. VASCULATURE: Stable 3.4 cm infrarenal abdominal aortic aneurysm. Atherosclerosis of the aorta. MUSCULOSKELETAL: Multilevel degenerative changes are present without fracture. No concerning lesions are present. OTHER: No other abnormality. IMPRESSION: Diffuse thickening of the wall of the colon, primarily the cecum and ascending colon with inflammatory stranding in the surrounding fatsuggesting inflammatory or infectious colitis. No bowel obstruction or abscess. The liver demonstrates a nodular contour characteristic of cirrhosis.There are 2 enhancing masses within the right hepatic lobe measuring 3 cm x 4.4cm anteriorly and 4.6 cm x 3.9 cm, not significantly changed in size compared with 01/19/2023, but the lesions are concerning for neoplasms including hepatocellular carcinoma. Stable 8 mm probable cyst posteroinferior right hepatic lobe. Portal venous hypertension with recanalization of the umbilical vein and esophageal and perisplenic varices. Splenomegaly. Cholelithiasis. Stable 3.4 cm infrarenal abdominal aortic aneurysm. 3.0-3.4 cmRecommended ultrasound follow up every 3 years per Society for Vascular Surgery Guidelines: J Vasc Surgery 2009 Jun 50: s2s49; updated Sep 2017 J VascSurgery 67:277 THIS IS AN ELECTRONICALLY VERIFIED FINAL REPORT 03/16/2023 6:57 PM - Electronically signed by Jose Nelson M.D. KT: ABDIAS Report ID: [id number] Reading Location: [place] [address] Thiago Galloway MD IMG CT PROCEDURES Final Result * (ABNORMAL) Hepatitis panel, acute (01/20/2023 3:00 AM CDT) Hep A IgM Nonreactive Nonreactive [facility] ([facility]) Comment: Interpretive Data: If Hep A IgM Ab is reported as Equivocal, a new sample should be drawn in two weeks for testing. Current interpretive data was last revised on 19. Testing performed by: [address] [address] Hep B core IgM Nonreactive Nonreactive [facility] ([facility]) Comment: Interpretive Data If HepB Core IgM Ab is reported as Equivocal, a new sample should be drawn in two weeks for testing. Current interpretive data was last revised on 19. Testing performed by: [facility], [address] [place] [address]., [id number] Hep C Ab Reactive(A) Nonreactive [facility] ([place]) Comment: Critical Result Interpretive Data Nonreactive: Antibodies to HCV not detected. Does NOT exclude the possibility of recent exposure to HCV. Equivocal: Equivocal for HCV antibodies. Supplemental molecular testing will be automatically performed to determine infection status in accordance with current CDC screening recommendations. Reactive: Positive for HCV antibodies. This may represent current or past HCV infection. Supplemental molecular testing will be automatically performed to determine current infection status in accordance with current CDC screening recommendations. Interpretive data was last revised on 2019. Testing performed by: [facility], [address] [place] [address]., [id number] HepBsAg Nonreactive Nonreactive [facility] ([place]) Comment:Testing performed by : [facility], [address] [place] [address]., [id number] Blood 01/20/2023 3:00 AM CDT 01/20/2023 9:09 AM CDT us Holly [facility] MICROBIOLOGY - GENER AL ORDERABLES Final Result [facility] ([facility]) [address] [facility] [place] [address] * COLONOSCOPY (09/08/2020 7:47 AM PLANT INSPECTOR) Anatomical Region Laterality Modality Other Narrative Procedure Note Deirdre Ayala MD - 09/08/2020 7:47 AM CST [facility] Patient Name: Richard Wing Procedure Date: 09/08/2020 7:47 AM Date of : 1955 Admit Type: Outpatient Age: 65 Gender: Male Note Status: Finalized Attending MD: Deirdre Ayala M.D. Procedure Date: 09/08/2020 Procedure: Colonoscopy Indications: High risk colon cancer surveillance: Personalhistory of colonic polyps, Last colonoscopy: date unknown (unable to locate last colonoscopy report) Providers: Deirdre Ayala M.D., Navid Marino M.D. (Anesthesia Staff), Mulu Nieves RN Referring MD: Natanael Temple M.D. Medicines: Monitored Anesthesia Care Complications: No immediate complications. Estimated Blood Loss: Estimated blood loss was minimal. Procedure: Pre-Anesthesia Assessment: - Prior to the procedure, a History and Physical was performed, and patient medications and allergieswere reviewed. The patient is competent. The risks and benefits of the procedure and the sedation optionsand risks were discussed with the patient. All questions were answered and informed consent was obtained. Patient identification and proposed procedure were verified by the physician, the nurse and the anesthesiologist in the procedure room. MentalStatus Examination: alert and oriented. Airway Examination: normal oropharyngeal airway and neck mobility. Respiratory Examination: clear to auscultation. CV Examination: normal. Prophylactic Antibiotics: The patient does not require prophylactic antibiotics. Prior Anticoagulants: The patient has taken noprevious anticoagulant or antiplatelet agents. ASA Grade Assessment: III - A patient with severe systemic disease. After reviewing the risks and benefits, the patient was deemed in satisfactory condition toundergo the procedure. The anesthesia plan was to usemonitored anesthesia care (MAC). Immediately prior to administration of medications, the patient was re-assessed for adequacy to receive sedatives. The heart rate, respiratory rate, oxygen saturations,blood pressure, adequacy of pulmonary ventilation, and response to care were monitored throughout the procedure. The physical status of the patient was re-assessed after the procedure. - The risks and benefits of the procedure and the sedation options and risks were discussed with the patient. All questions were answered and informed consent was obtained. After I obtained informed consent, the scope waspassed under direct vision. Throughout the procedure, the patient's blood pressure, pulse, and oxygensaturations were monitored continuously. The scope was passedunder direct vision. The Colonoscope was introducedthrough the anus and advanced to the the cecum, identifiedby appendiceal orifice and ileocecal valve. The colonoscopy was performed without difficulty. The patient tolerated the procedure well. The quality of the bowel preparation was adequate. The bowel preparation used was SUPREP. Bowel prep was administered using a split dose. Findings: Two sessile polyps were found in the descending colon and splenic flexure. The polyps were 3 to 4 mm in size. These polyps were removed with a hot biopsy forceps. Resection and retrieval were complete. Estimated blood loss was minimal. A 9 mm polyp was found in the sigmoid colon. The polyp was sessile.The polyp was removed with a hot snare. Resection and retrieval were complete. Estimated blood loss was minimal. Non-bleeding internal hemorrhoids were found during retroflexion. The hemorrhoids were medium-sized. Impression: - Two 3 to 4 mm polyps in the descending colon andat the splenic flexure, removed with a hot biopsyforceps. Resected and retrieved. - One 9 mm polyp in the sigmoid colon, removed witha hot snare. Resected and retrieved. - Non-bleeding internal hemorrhoids. Recommendation: - Await pathology results. - Repeat colonoscopy in 5 years for surveillancebased on pathology results. Procedure Code(s): --- Professional --- 64370, Colonoscopy, flexible; with removal oftumor(s), polyp(s), or other lesion(s) by snare technique 02622, 59, Colonoscopy, flexible; with removal of tumor(s), polyp(s), or other lesion(s) by hot biopsy forceps Diagnosis Code(s): --- Professional --- Z86.010, Personal history of colonic polyps D12.4, Benign neoplasm of descending colon D12.3, Benign neoplasm of transverse colon (hepatic flexure or splenic flexure) D12.5, Benign neoplasm of sigmoid colon K64.8, Other hemorrhoids CPT copyright 2017 [employer]. All rights reserved. The codes documented in this report are preliminary and upon staff rn reviewmay be revised to meet current compliance requirements. Electronically signed by Deirdre Ayala M.D. Deirdre Ayala M.D. 09/08/2020 8:47:29 AM Number of Addenda: 0 Note Initiated On: 09/08/2020 7:47 AM Deirdre Ayala MD ENDOSCOPY PROCEDURES Fi nal Result from Last 3 Months or Most Recently Relevant to Health Maintenance Insurance Advance Directives For more information, please contact: [phone] * Full Code (Latest Code Status on File) Date Activated Date Inactivated Comments 03/16/2023 8:04 PM 03/19/2023 2:43 PM * Full Code Date Activated Date Inactivated Comments 01/19/2023 8:48 AM 01/21/2023 3:59 PM Care Teams Sewing Supervisor Relationship Specialty Start Date End Date Krishna Gao MD PCP - General Family Medicine 12/17/21 Chantell Michael MD [address] [place] [address] [address] [place] [address] Consulting Physician Gastroenterology 01/21/23 Henry Gr MD [address] [place] [address] [address] [place] [address] Consulting Physician Hematology and Oncology 02/22/23 Nick Leal MD [address] [place] [address] [address] [place] [address] Consulting Physician Gastroenterology 03/19/23
--- OUTSIDE RECORDS SUMMARY | 2025-04-02 12:04 | XMS_ITS | Clinical Summary ---
Author Organization [facility] Address [address] [place] [address] Care Team Providers Care Gutter Installer Name Role Phone Krishna Gao MD Primary Care Provider Chantell Michael MD Unavailable Henry Gr MD Unavailable [phone] Nick Leal MD Unavailable [phone] Allergies Active Allergy Reactions Criticality Noted Date [...] (09/03/2020): Added automatically from request for surgery [id number] Elevated d-dimer Abdominal aortic aneurysm (AAA) without rupture Immunizations Immunization Administration Dates Next Due Influenza, Quadrivalent, Spl it, Intramuscular 05/24/2017 Influenza, Quadrivalent, Spl it, Preservative Free, Intramuscular 07/04/2019,07/17/2018,07/08/2015 Influenza, Trivalent, Preser vative Free, Intramuscular 06/03/2016 Tdap 08/20/2019 Surgical History Surgery Date Site/Laterality Comments CARDIAC CATHETERIZATION COLONOSCOPY 09/18/2013 - 09/17/2014 BACK SURGERY x3 APPENDECTOMY ANKLE SURGERY x2 Medical History Medical History Date Comments Heart attack (HCC) HELLP (hemolytic anemia/elev liver enzymes/low p latelets in ) GERD (gastroesophageal reflux disease) Hyperlipidemia Coronary artery disease COPD (chronic obstructive pulmonary disease) (HC C) Hepatitis C virus infection cured after antivira l drug therapy Social History Tobacco Use Types Packs/Day Years [...] often do you attend chur ch or orthodoxy services? Never 03/17/2023 Do you belong to any clubs o r organizations such as cheondoism groups, unions, fraternal or athletic groups, or [...] money to buy more. Never true 03/17/20 Within the past 12 months, t he [...] place to sleep or slept in a retirement (including now)? No 03/17/2023 Personal Safety Answer Date Recorded Getting School Help Needed Not on file 03/23 Sex and Gender Information Value Date Recorded Sex Assigned at Not on file Legal Sex Male 9:35 AM CAR REPAIRMAN Gender Identity Not on file Sexual Orientation Not on file Obstetrics History Last Filed Vital Signs Vital Sign Reading [...] 03/16/2023 10:20 PM CDT Plan of Treatment Health Maintenance Due Date Last Done Comments Depression Screening 1957 Prostate Cancer Screening-PSA 1957 Hepatitis B Screening 1975 Pneumococcal vaccine 65+ (1 of 2 - PCV) 1976 Zoster Vaccine (1 of 2) 2007 Well Visit 65+ 2022 Fall Risk Assessment 03/19/2024 03/19/2023 Covid-19 Vaccine (3 - 2023-2 5 season) 2024 05/03/2021, 04/12/2021 Influenza Vaccine (#1) 2025 9, 07/17/2018, 05/24/2017, Additional history exists DTaP/Tdap/Td Vaccine (2 - Td or Tdap) 08/20/2029 08/20/2019 Colon Cancer Screening-Colonoscopy 09/08/2030 09/08/2020 Colon Cancer Screening-CT Colonography Discontinued 09/08/2020 Colon Cancer Screening-DNA Stool Discontinued 09/08/20 20 Colon Cancer Screening-FIT Discontinued 09/08/2020 Colon Cancer Screening-Sigmoidoscopy Discontinued 09/08/2020 Hepatitis C Screening Completed 01/20/2023, 023 Abdominal Aortic Aneurysm (A AA) Screen Completed 03/16/2023, 01/21/2023, 01/19/2023, Additional history exists Procedures Procedure Name Priority Date/Time Associated Diagnosis Comments CT ABDOMEN PELVIS W CONTRAST ED 03/16/2023 6:38 PM CDT HEPATITIS PANEL, ACUTE Routine 01/20/2023 3:00 AM CDT COLONOSCOPY 09/08/2020 7:47 AM CAR REPAIRMAN from Last 3 Months or Most Recently [...] Jose Nelson M.D. KT: ABDIAS Report ID: [id number] Reading Location: [id number] Procedure Note Jose Nelson MD - 03/16/2023 [...] 2008 50: [id number]; updated Sep 2017 J VascSurgery 67:277 THIS IS AN ELECTRONICALLY VERIFIED FINAL REPORT 03/16/2023 6:57 PM - Electronically signed by Jose Nelson M.D. KT: KT Report ID: [id number] Reading Location: [place] [address] Thiago Galloway MD IMG CT PROCEDURES Final Result * (ABNORMAL) Hepatitis panel, acute (01/20/2023 3:00 AM CDT) Hep A IgM Nonreactive Nonreactive [facility] ([place]) Comment: Interpretive Data: If Hep A IgM Ab is reported as Equivocal, a new sample should be drawn in two weeks for testing. Current interpretive data was last revised on 19. Testing performed by: [facility], [address] [place] [address]., [id number] Hep B core IgM Nonreactive Nonreactive [facility] ([place]) Comment: Interpretive Data If HepB Core IgM Ab is reported as Equivocal, a new sample should be drawn in two weeks for testing. Current interpretive data was last revised on 19. Testing performed by: [facility], [address] [place] [address]., [id number] Hep C Ab Reactive(A) Nonreactive [facility] ([place]) Comment: Critical Result Interpretive Data [...] last revised on 2019. Testing performed by: [facility], [address] [place] [address]., [id number] HepBsAg Nonreactive Nonreactive [facility] ([place]) Comment:Testing performed by : [facility], [address] [place] [address]., [id number] Blood 01/20/2023 3:00 AM CDT 01/20/2023 9:09 AM CDT us Holly [facility] LAB MICROBIOLOGY - GENER AL ORDERABLES Final Result [facility] ([place]) 0 [facility] Department [place] [address] * COLONOSCOPY (09/08/2020 7:47 AM CAR REPAIRMAN) Anatomical Region Laterality Modality Other Narrative Procedure Note Deirdre Ayala MD - 09/08/2020 7:47 AM CST [facility] Patient Name: Richard Wing Procedure [...] Staff), Mulu Nieves RN Referring MD: Natanael eTmple M.D. Medicines: Monitored Anesthesia Care Complications: No [...] pathology results. Procedure Code(s): --- Professional --- 67438, Colonoscopy, flexible; with removal oftumor(s), polyp(s), or other lesion(s) by snare technique 98791, 59, Colonoscopy, flexible; with removal of tumor(s), polyp(s), or other lesion(s) by hot biopsy forceps Diagnosis Code(s): --- Professional --- Z86.010, Personal history of colonic polyps D12.4, Benign neoplasm of descending colon D12.3, Benign neoplasm of transverse colon (hepatic flexure or splenic flexure) D12.5, Benign neoplasm of sigmoid colon K64.8, Other hemorrhoids CPT copyright 2017 [employer]. All rights reserved. The codes documented in this report are preliminary and upon manager relationship reviewmay be revised to meet current compliance requirements. Electronically signed by Deirdre Ayala M.D. Deirdre Ayala M.D. 09/08/2020 8:47:29 AM Number of Addenda: 0 Note Initiated On: 09/08/2020 7:47 AM Deirdre Ayala MD ENDOSCOPY PROCEDURES Fi nal Result from Last 3 Months or Most Recently Relevant to Health Maintenance Insurance Advance Directives For more information, please contact: [phone] * Full Code (Latest Code Status on File) Date Activated Date Inactivated Comments 03/16/2023 8:04 PM 03/19/2023 2:43 PM * Full Code Date Activated Date Inactivated Comments 01/19/2023 8:48 AM 01/21/2023 3:59 PM Care Teams Gutter Installer Relationship Specialty Start Date End Date Krishna Gao MD PCP - General Family Medicine 12/17/21 Chantell Michael MD [address] [place] [address] [address] [place] [address] Consulting Physician Gastroenterology 01/21/23 Henry Gr MD [address] [place] [address] [address] [place] [address] Consulting Physician Hematology and Oncology 02/22/23 Nick Leal MD [address] [place] [address] [address] [place] [address] Consulting Physician Gastroenterology 03/19/23
--- OUTSIDE RECORDS SUMMARY | 2025-04-02 12:04 | XMS_ITS | Encounter Summary ---
Author Organization [facility] Address [address] [place] [address] Care Team Providers Care Fashion Styling Intern Name Role Phone Natanael Temple MD Primary Care Provider [phone] Hector Rosenberg MD Unavailable [phone]- [phone] Caprice Rosales MD Unavailable Krishna Gao MD Primary Care Provider [phone] Encounter Details Date Type Department Care Team (Late st Contact Info) Description 04/13/2018 Abstract [facility] [address] [place] [address] Non-Staff, Provider Social History Tobacco Use Types Packs/Day Years Used Date Smoking Tobacco: Smoker, Current Status Unknown Cigarettes 0.5 56 Smokeless Tobacco: Never Alcohol Use Standard Drinks/Week Comments No 0 (1 standard drink = 0.6 oz pur e alcohol) Sex and Gender Information Value Date Recorded Sex Assigned at Male 11/07/2024 9:55 AM TEXTBOOK ASSOCIATE Legal Sex Male 2:01 AM CDT Gender Identity Not on file Sexual Orientation Not on file Occupation Industry Job Start Date Job End Date Disability Not on file Not on file Not on file documented as of this encounter Plan of Treatment Not on file documented as of this encounter Procedures Procedure Name Priority Date/Time Associated Diagnosis Comments MALARIA PCR Routine 09/21/2017 documented in this encounter Results * (ABNORMAL) MALARIA PCR (09/21/2017) GLUCOSE 127 mg/dL BUN 8 CREATININE S/P/B 0.89 0.7 - 1.3 EGFR AFR. AMER. 107 EGFR NON-AFR. AMER. 93(A) <=90 BUN CREATININE RATIO 9 SODIUM S/P/B 136 POTASSIUM S/P/B 3.5 CHLORIDE S/P/B 96 CO2 27 CALCIUM S/P/B 8.8 TOTAL PROTEIN (ELECTROPHORESIS SERUM) 6.6 ALBUMIN S/P/B 3.7 3.5 - 5.0 GLOBULIN 2.9 A/G RATIO 1.3 BILIRUBIN TOTAL (FLUID) 0.6 ALK PHOS 90 AST 62 GPT/ALT 56 09/21/2017 us Provider Non-Staff LABORATORY Final Result documented in this encounter Visit Diagnoses Not on filedocumented in this encounter Care Teams Fashion Styling Intern Relationship Specialty Start Date End Date Natanael Temple MD [address] [place] [phone] PCP - General FAMILY PRACTICE 10/20/16 06/26/24 Krishna Gao MD [address] [place] [phone] PCP - General FAMILY PRACTICE 06/27/24 Hector Rosenberg MD [address] [place] [phone] [place] Gl Accountant CARDIOVASCULAR DISEASE 10/09/17 Caprice Rosales MD [address] [place] [phone] Consulting Physician INFECTIOUS DISEASE 04/03/19 documented as of this encounter
[2025-04-02 12:07] LABS: Alanine Aminotransferase 21 U/L (6-50); Albumin Level 3.6 g/dL (3.5-5.1); Alkaline Phosphatase 89 U/L (38-126); Anion Gap 3 mmol/L (4-12); Aspartate Amino Transferase 37 U/L (17-59); Bilirubin,Total 1.1 mg/dL (0.2-1.3); Blood Urea Nitrogen 9 mg/dL (9-20); Calcium 8.7 mg/dL (8.4-10.2); Carbon Dioxide 30 mmol/L (22-30); Chloride 103 mmol/L (98-107); Estimated Glomerular Filt Rate > 60; Glucose 120 mg/dL (65-110); Osmolality Calculated 281 mOsm/kg (285-295); Potassium 4.3 mmol/L (3.4-5.0); Sodium 136 mmol/L (137-145); Total Protein 6.5 g/dL (6.3-8.2)
[2025-04-02 12:32] LABS: Band Neutrophils Percent 0 % (0-6); Basophils Absolute Manual 0.03 K/mm3 (0-0.1); Basophils Percent Manual 1 % (0-1); Lymphocytes Absolute Manual 0.76 K/mm3 (1.1-4.5); Lymphocytes Percent Manual 20 % (18-44); Monocytes Absolute Manual 0.30 K/mm3 (0.1-0.90); Monocytes Percent Manual 8 % (3-9); Neutrophils Absolute Manual 2.69 K/mm3 (1.3-6.7); Neutrophils Percent Manual 71 % (46-73); Schistocytes None Seen; Total Cells Counted 100
== END 2025-04-02 11:30 | disposition home or self-care (01) ==
LOC: CHSLAB 11:35
PROVIDERS: PCP Family Medicine
DX: C22.0 Liver cell carcinoma (principal)
CPT/HCPCS: 36415; 71260; 74177; 80053; 82105; 85025; 85055; 85384; Q9967

== ENCOUNTER 2025-05-22 12:47 | Emergency (ER) | payer OTHER, SELFPAY ==
[2025-05-22 12:50] VITALS: BP 126/75; PULSE 95; RESP 20; TEMP 36.8; O2SAT 95
--- NOTE | 2025-05-22 12:57 | ED.WOUNDLAC ---
HPI - Wound/Laceration General Stated Complaint: L hand abrasion Time Seen by Provider: 05/22/25 12:53 Source: patient Mode of arrival: ambulatory Limitations: no limitations History of Present Illness HPI narrative: This is a 70-year-old male that presents with a avulsion injury to the left anterior hand non gaping currently not bleeding will update patient with his tetanus. Has good range of motion no numbness or tingling in his hand. Onset (ago): hour(s) Location: other Extremity Location: Left: hand ( Avulsion injury) Place: home Patient tetanus UTD: No Context: accidental Associated symptoms: none Review of Systems Review of Systems: All systems reviewed & are unremarkable except as noted in HPI and below PMFSH Past Medical History Medical History Patient denies medical problems Exam Const: General: healthy appearing and no acute distress Nutritional Appearance: well nourished Orientation/consciousness: patient oriented x3 Chest: Chest palpation & inspection: normal inspection of the chest Resp: Effort & Inspection: normal respiratory effort Auscultation: clear to auscultation bilaterally Cardio: Rate: regular rate Rhythm: regular rhythm GI: GI Palp: Yes Soft to palpation Skin: Wounds: wounds noted Other: small avulsion injury to anterior left hand Course Course Emergency Course: patient updated with his tetanus and triple antibiotic ointment placed Critical Care Time Critical Care Time Critical Care Time: No Discharge Plan Discharge Clinical Impression: Avulsion of skin Patient Disposition: Home Condition: Stable Instructions: Antibiotic Form, Skin Avulsion (ED) Additional Instructions: advised patient to place Neosporin daily x3 days and follow with primary if symptoms persist or worsen. Patient Language: Citizen Of [place] Follow-up/Referrals: Sima,MD Krishna [Primary Care Provider, [facility]] Time of Disposition: 13:00
--- OUTSIDE RECORDS SUMMARY | 2025-05-22 12:57 | XMS_ITS | Clinical Summary ---
Author Organization [facility] Address [address] [place] [address] Care Team Providers Care Rn Flight Name Role Phone Krishna Gao MD Primary Care Provider Chantell Michael MD Unavailable Henry Gr MD Unavailable [phone] Nick Leal MD Unavailable [phone] Allergies Active Allergy Reactions Criticality Noted Date [...] (09/03/2020): Added automatically from request for surgery [id number] Elevated d-dimer Abdominal aortic aneurysm (AAA) without [...] artery disease COPD (chronic obstructive pulmonary disease) Hepatitis C virus infection cured after antivira l drug therapy Social History Tobacco Use Types Packs/Day Years Used Date Smoking Tobacco: Every Day Cigarettes Smokeless Tobacco: Never Tobacco Cessation:Ready to Q uit: Not Asked; Counseling Given: Not Answered Alcohol Use Standard Drinks/Week Comments Never 0 (1 standard drink = 0.6 oz pur e alcohol) Social Connection and Isolation Panel Answer Date Recorded In a typical week, how many times do you talk on the phone with family, friends, or neighbors? Three times a week 03/17/2023 How often do you get togethe r with friends or relatives? Once a week 03/17/2023 How often do you attend chur ch or yazdanism services? Never 03/17/2023 Do you belong to any clubs o r organizations such as advent groups, unions, fraternal or athletic groups, or [...] place to sleep or slept in a residential (including now)? 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 KT: ABDIAS Report ID: [id number] Reading Location: [id number] Procedure Note Jose Nelson MD - 03/16/2023 [...] Jose Nelson M.D. KT: KT Report ID: [id number] Reading Location: [id number] Thiago Galloway MD IMG CT PROCEDURES Final Result * (ABNORMAL) Hepatitis panel, acute (01/20/2023 3:00 AM CDT) Hep A IgM Nonreactive Nonreactive [facility] ([place]) Comment: Interpretive Data: If Hep A IgM Ab is reported as Equivocal, a new sample should be drawn in two weeks for testing. Current interpretive data was last revised on 19. Testing performed by: [address] [address] Hep B core IgM Nonreactive Nonreactive [facility] ([place]) Comment: Interpretive Data If HepB Core IgM Ab is reported as Equivocal, a new sample should be drawn in two weeks for testing. Current interpretive data was last revised on 19. Testing performed by: [address] [address] Hep C Ab Reactive(A) Nonreactive [facility] [...] last revised on 2019. Testing performed by: [address] [address] HepBsAg Nonreactive Nonreactive [facility] ([place]) Comment:Testing performed by : [address] [address] Blood 01/20/2023 3:00 AM CDT 01/20/2023 9:09 AM CDT Holly [facility] MICROBIOLOGY - [facility] ORDERABLES Final Result [id number] ([facility] Department [place] [address] * COLONOSCOPY (09/08/2020 7:47 AM PRESS SETUP OPERATOR) Anatomical Region Laterality Modality Other Narrative Procedure Note Deirdre Ayala MD - 09/08/2020 7:47 AM CST [facility] Patient Name: Richard Wing Procedure [...] pathology results. Procedure Code(s): --- Professional --- 39933, Colonoscopy, flexible; with removal oftumor(s), polyp(s), or other lesion(s) by snare technique 22160, 59, Colonoscopy, flexible; with removal of tumor(s), polyp(s), or other lesion(s) by hot biopsy forceps Diagnosis Code(s): --- Professional --- Z86.010, Personal history of colonic polyps D12.4, Benign neoplasm of descending colon D12.3, Benign neoplasm of transverse colon (hepatic flexure or splenic flexure) D12.5, Benign neoplasm of sigmoid colon K64.8, Other hemorrhoids CPT copyright 2017 [employer]. All rights reserved. The codes documented in this report are preliminary and upon retail special event associate reviewmay be revised to meet current compliance requirements. Electronically signed by Deirdre Ayala M.D. Deirdre Ayala M.D. 09/08/2020 8:47:29 AM Number of Addenda: 0 Note Initiated On: 09/08/2020 7:47 AM Deirdre Ayala MD ENDOSCOPY PROCEDURES Fi nal Result from Last 3 Months or Most Recently Relevant to Health Maintenance Insurance [facility] Advance Directives For more information, please contact: [phone] * Full Code (Latest Code Status on File) Date Activated Date Inactivated Comments 03/16/2023 8:04 PM 03/19/2023 2:43 PM * Full Code Date Activated Date Inactivated Comments 01/19/2023 8:48 AM 01/21/2023 3:59 PM Care Teams Rn Flight Relationship Specialty Start Date End Date Krishna Gao MD PCP - General Family Medicine 12/17/21 Chantell Michael MD [address] [place] [address] [address] [place] [address] Consulting Physician Gastroenterology 01/21/23 Henry Gr MD [address] [place] [address] [address] [place] [address] Consulting Physician Hematology and Oncology 02/22/23 Nick Leal MD [address] [place] [address] [address] [place] [address] Consulting Physician Gastroenterology 03/19/23
--- OUTSIDE RECORDS SUMMARY | 2025-05-22 12:57 | XMS_ITS | Clinical Summary ---
Author Organization [facility] Address [address] [place] [address] Phone Care Team Providers Care Briquette Operator Name Role Phone Inocente Beltran APRN, JANI [...] Comments Blood Pressure 116/68 09/01/2022 9:19 AM GENERAL OFFICE DISPATCHER Pulse 75 09/01/2022 9:19 AM GENERAL OFFICE DISPATCHER Temperature 36.3 C (97.4 F) 08/20/2019 4:44 PM GENERAL OFFICE DISPATCHER Respiratory Rate 17 08/20/2019 5:20 PM GENERAL OFFICE DISPATCHER Oxygen Saturation 98% 08/20/2019 5:20 PM GENERAL OFFICE DISPATCHER Inhaled Oxygen Concentration - - Weight 63.5 kg (140 lb) 09/01/2022 9:03 AM GENERAL OFFICE DISPATCHER Height 170.2 cm (5' 7) 09/01/2022 9:03 AM GENERAL OFFICE DISPATCHER Body Mass Index 21.93 09/01/2022 9:03 AM GENERAL OFFICE DISPATCHER Plan of Treatment Health Maintenance Due Date Last Done Comments Cologuard 2002 Colonoscopy 2002 Colorectal Cancer Screening 2002 Immunochemical Fecal Occult Blood 2002 Pneumococcal Immunization (50+ years) (1 of 1 - PCV) 2007 Zoster Immunization (1 of 2) 2007 Influenza Immunization (#1) 05/19/202506/18, 07/17/2018, 05/24/2017, Additional history exists SARS-COV-2 Immunization ( - 2024- season) 2025 05/03/2021, 04/12/2021 Respiratory Syncytial Virus (RSV) Immunization (Adult) (1 [...] Insurance MEDICAID [employer] Care Teams Briquette Operator Relationship Specialty Start Date End Date Inocente Beltran APRN, MASONRY INSTALLER [address] [address] PCP - General Advanced Practice Nurse 06/21/22
[2025-05-22] MEDS: TETANUS,DIPHTHERIA,AC PERTUSSIS ADULT 0.5 ML (ADACEL) IM (13:18)
[2025-05-22] MEDS: NEOMYCIN/POLYMYXIN/BACITRACIN OINTMENT PACKET 1 PACKET TOPICAL (13:19)
== END 2025-05-22 13:25 | disposition home or self-care (01) ==
LOC: CHSED 13:04
PROVIDERS: Emergency Provider Emergency Medicine; PCP Family Medicine
DX: S60.512A Abrasion of left hand, initial encounter (principal); X58.XXXA Exposure to other specified factors, initial encounter; Z23 Encounter for immunization
CPT/HCPCS: 90471; 90715; 99282

== ENCOUNTER 2025-06-19 07:51 | Outpatient (CLI) | payer OTHER, SELFPAY ==
--- OUTSIDE RECORDS SUMMARY | 2025-06-19 07:57 | XMS_ITS | Encounter Summary ---
Author Organization [facility] Address [address] [place] [address] Care Team Providers Care Manufacturer'S Service Representative Name Role Phone Natanael Temple MD Primary Care Provider [phone] Hector Rosenberg MD Unavailable [phone]- [phone] Caprice Rosales MD Unavailable Krishna Gao MD Primary Care Provider [phone]- [phone] Encounter Details Date Type Department Care Team (Late st Contact Info) Description 02/02/2016 Abstract [facility] [address] [place] [phone] Nader Doshi MD Social History Tobacco Use Types Packs/Day Years Used Date Smoking Tobacco: Smoker, Current Status Unknown Cigarettes Alcohol Use Standard Drinks/Week Comments No 0 (1 standard drink = 0.6 oz pur e alcohol) Sex and Gender Information Value Date Recorded Sex Assigned at Male 11/07/2024 9:55 AM ETCH OPERATOR SEMICONDUCTOR WAFERS Legal Sex Male 2:01 AM CDT Gender Identity Not on file Sexual Orientation Not on file Occupation Industry Job Start Date Job End Date Disability Not on file Not on file Not on file documented as of this encounter Plan of Treatment Not on file documented as of this encounter Visit Diagnoses Not on filedocumented in this encounter Care Teams Manufacturer'S Service Representative Relationship Specialty Start Date End Date Natanael Temple MD [address] [place] [phone] PCP - General FAMILY PRACTICE 10/20/16 06/26/24 Krishna Gao MD [address] [place] [phone] PCP - General FAMILY PRACTICE 06/27/24 Hector Rosenberg MD [address] [place] [phone] [place] Fruit Grading Supervisor CARDIOVASCULAR DISEASE 10/09/17 Caprice Rosales MD [address] [place] [phone] Consulting Physician INFECTIOUS DISEASE 04/03/19 documented as of this encounter
--- OUTSIDE RECORDS SUMMARY | 2025-06-19 07:57 | XMS_ITS | Encounter Summary ---
Author Organization [facility] Address [address] [place] [address] Care Team Providers Care Growth Hacker Name Role Phone Natanael Temple MD Primary Care Provider [phone] Hector Rosenberg MD Unavailable +- [phone] Caprice Rosales MD Unavailable Krishna Gao MD Primary Care Provider Encounter Details Date Type Department Care Team (Late st Contact Info) Description 03/15/2016 Abstract [facility] [address] [place] [phone] Nader Doshi MD Social History Tobacco Use Types Packs/Day Years Used Date Smoking Tobacco: Smoker, Current Status Unknown Sex and Gender Information Value Date Recorded Sex Assigned at Male 11/07/2024 9:55 AM DEVELOPMENT CHEMIST Legal Sex Male 2:01 AM CDT Gender [...] on filedocumented in this encounter Care Teams Growth Hacker Relationship Specialty Start Date End Date Natanael Temple MD [address] [place] [phone] PCP - General FAMILY PRACTICE 10/20/16 06/26/24 Krishna Gao MD [address] [place] [phone] PCP - General FAMILY PRACTICE 06/27/24 Hector Rosenberg MD [address] [place] [phone] Bledsoe Laundry Room Attendant CARDIOVASCULAR DISEASE 10/09/17 Caprice Rosales MD [address] [place] [phone] Consulting Physician INFECTIOUS DISEASE 04/03/19 documented as of this encounter
--- OUTSIDE RECORDS SUMMARY | 2025-06-19 07:57 | XMS_ITS | Clinical Summary ---
Author Organization [facility] Address [address] [place] [address] Care Team Providers Care Employment Director Name Role Phone Krishna Gao MD Primary Care Provider [phone] Chantell Michael MD Unavailable Henry Gr MD Unavailable [phone] Nick Leal MD Unavailable [phone] Allergies Active Allergy Reactions Criticality Noted Date [...] (09/03/2020): Added automatically from request for surgery [id number] Elevated d-dimer Abdominal aortic aneurysm (AAA) without [...] often do you attend chur ch or catholic services? Never 03/17/2023 Do you belong to any clubs o r organizations such as yarsani groups, unions, fraternal or athletic groups, or [...] place to sleep or slept in a jail (including now)? No 03/17/2023 Personal Safety Answer Date Recorded Getting School Help Needed Not on file 03/23 Sex and Gender Information Value Date Recorded Sex Assigned at Not on file Legal Sex Male 9:35 AM MESH MAN Gender Identity Not on file Sexual Orientation [...] 3:00 AM CDT COLONOSCOPY 09/08/2020 7:47 AM MESH MAN from Last 3 Months or Most Recently [...] Jose Nelson M.D. KT: ABDIAS Report ID: [id number] Reading Location: [id number] Procedure Note Jose Nelson MD - 03/16/2023 [...] Jose Nelson M.D. KT: KT Report ID: [id number] Reading Location: [id number] Thiago Galloway MD IMG CT PROCEDURES Final Result * (ABNORMAL) Hepatitis panel, acute (01/20/2023 3:00 AM CDT) Hep A IgM Nonreactive Nonreactive [facility] ([facility]) Comment: Interpretive Data: If Hep A IgM Ab is reported as Equivocal, a new sample should be drawn in two weeks for testing. Current interpretive data was last revised on 19. Testing performed by: [address] [address] Hep B core IgM Nonreactive Nonreactive [facility] ([facility]) Comment: Interpretive Data If HepB Core IgM Ab is reported as Equivocal, a new sample should be drawn in two weeks for testing. Current interpretive data was last revised on 19. Testing performed by: [address] [address] Hep C Ab Reactive(A) Nonreactive [facility] [...] last revised on 2019. Testing performed by: [address] [address] HepBsAg Nonreactive Nonreactive [facility] ([facility]) Comment:Testing performed by : [address] [address] Blood 01/20/2023 3:00 AM CDT 01/20/2023 9:09 AM CDT Holly [facility] MICROBIOLOGY - [facility] ORDERABLES Final Result [facility] (SANJUANITA) [facility] Department [place] [address] * COLONOSCOPY (09/08/2020 7:47 AM MESH MAN) Anatomical Region Laterality Modality Other Narrative Procedure Note Deirdre Ayala MD - 09/08/2020 7:47 AM CST [facility] Endoscopy Lab Patient Name: Richard Wign Procedure Date: 09/08/2020 7:47 AM Date of [...] pathology results. Procedure Code(s): --- Professional --- 98040, Colonoscopy, flexible; with removal oftumor(s), polyp(s), or other lesion(s) by snare technique 09630, 59, Colonoscopy, flexible; with removal of tumor(s), polyp(s), or other lesion(s) by hot biopsy forceps Diagnosis Code(s): --- Professional --- Z86.010, Personal history of colonic polyps D12.4, Benign neoplasm of descending colon D12.3, Benign neoplasm of transverse colon (hepatic flexure or splenic flexure) D12.5, Benign neoplasm of sigmoid colon K64.8, Other hemorrhoids CPT copyright 2017 [employer]. All rights reserved. The codes documented in this report are preliminary and upon bar porter reviewmay be revised to meet current compliance requirements. Electronically signed by Deirdre Ayala M.D. Deirdre Ayala M.D. 09/08/2020 8:47:29 AM Number of Addenda: 0 Note Initiated On: 09/08/2020 7:47 AM Deirdre Ayala MD ENDOSCOPY PROCEDURES Fi nal Result from Last 3 Months or Most Recently Relevant to Health Maintenance Insurance [facility] Advance Directives For more information, please contact: [phone] * Full Code (Latest Code Status on File) Date Activated Date Inactivated Comments 03/16/2023 8:04 PM 03/19/2023 2:43 PM * Full Code Date Activated Date Inactivated Comments 01/19/2023 8:48 AM 01/21/2023 3:59 PM Care Teams Employment Director Relationship Specialty Start Date End Date Krishna Gao MD PCP - General Family Medicine 12/17/21 Chantell Michael MD [address] [place] [address] [address] [place] [address] Consulting Physician Gastroenterology 01/21/23 Henry Gr MD [address] [place] [address] [address] [place] [address] Consulting Physician Hematology and Oncology 02/22/23 Nick Leal MD [address] [place] [address] [address] [place] [address] Consulting Physician Gastroenterology 03/19/23
--- OUTSIDE RECORDS SUMMARY | 2025-06-19 07:57 | XMS_ITS | Encounter Summary ---
Author Organization [facility] Address [facility] [place] [address] Care Team Providers Care Hotel Operation Manager Name Role Phone Natanael Temple MD Primary Care Provider [phone] Hector Rosenberg MD Unavailable [phone]- [phone] Caprice Rosales MD Unavailable Krishna Gao MD Primary Care Provider [phone] Encounter Details Date Type Department Care Team (Late st Contact Info) Description 02/23/2019 Abstract [facility] [address] [place] [address] , Generic MD Roselia Social History Tobacco Use Types Packs/Day Years Used Date Smoking Tobacco: Every Day Cigarettes 0.5 56 Smokeless Tobacco: Never Alcohol Use Standard Drinks/Week Comments No 0 (1 standard drink = 0.6 oz pur e alcohol) Sex and Gender Information Value Date Recorded Sex Assigned at Male 11/07/2024 9:55 AM WELLFIELD TECHNICIAN Legal Sex Male 2:01 AM CDT Gender Identity Not on file Sexual Orientation Not on file Occupation Industry Job Start Date Job End Date Disability Not on file Not on file Not on file documented as of this encounter Plan of Treatment Not on file documented as of this encounter Visit Diagnoses Not on filedocumented in this encounter Care Teams Hotel Operation Manager Relationship Specialty Start Date End Date Natanael Temple MD [address] [place] [phone] PCP - General FAMILY PRACTICE 10/20/16 06/26/24 Krishna Gao MD [address] [place] [phone] PCP - General FAMILY PRACTICE 06/27/24 Hector Rosenberg MD [address] [place] [phone] Lillie Hooker Machine Tender CARDIOVASCULAR DISEASE 10/09/17 Caprice Rosales MD [address] [place] [phone] Consulting Physician INFECTIOUS DISEASE 04/03/19 documented as of this encounter
--- OUTSIDE RECORDS SUMMARY | 2025-06-19 07:57 | XMS_ITS | Data Portability ---
Author Organization [facility], [address] [facility] ([place]) Address [address] [place] [address] Care Team Providers Care Cash Posting Clerk Name Role Phone MEREJESSICADEMARCUS Pelaez Primary Care Provider Assessment Encounter Date Assessment Date Assessment LastModified by Organization Details LastModified Time 05/15/2024 05/15/2024 ASSESSMENT: 69-year-old male with portal venous hypertension and internal and external hemorrhoids which cause swelling and pain. PLAN: I discussed the situation with Richard. We discussed that he does have internal and external hemorrhoids but he also has portal hypertension with a history of esophageal varices and thrombocytopenia. I discussed with him that he can be treated with conservative measures only in my opinion to include control of constipation and fiber supplementation. He can use Calmoseptine to place on the outside of the hemorrhoids. He can use other things such as neomycin with hydrocortisone in the future as needed. However, surgery is not recommended for him even though he has large hemorrhoids. It is not recommended due to the high risk of bleeding from varices especially in the setting of thrombocytopenia. He would be a candidate for surgical procedure only if he was bleeding actively and requiring a transfusion, otherwise, surgery should not be considered for his hemorrhoids. He expressed understanding and appreciation for my assessment and my recommendations. I would be happy to see him in the future to treat him conservatively if the current recommended measures do not work. gaf [email or web address] Not available 05/16/2024 13:52:41 Plan of Treatment Reminders Order Date Submit Date Provider Last Modified By Organization Details Last Modified Time Details Appointments None record ed. Lab None record ed. Referral None record ed. Procedures None record ed. Surgeries None record ed. Imaging None record ed. Medication Orders None record ed. Patient TargetsNo targets recorded. Patient InstructionsNo instructions recorded. Reason for Referral None Reported. Results Created Date Observation Date Name Description Value Unit Range Abnormal Flag Note LastModifiedBy Organization Detail LastModifiedTime 03/23/20 25 09/27/2019 imagi ng/di agnos tic resul t No observ ation record ed. [email or web address] Not Available 0 03/23/2025 14:20:16 03/23/20 25 04/01/2019 imagi ng/di agnos tic resul t No observ ation record ed. [email or web address] Not Available 0 03/23/2025 14:20:30 03/23/20 25 07/02/2020 imagi ng/di agnos tic resul t No observ ation record ed. [email or web address] Not Available 0 03/23/2025 14:20:33 03/23/20 25 07/11/2019 imagi ng/di agnos tic resul t No observ ation record ed. [email or web address] Not Available 0 03/23/2025 14:20:36 03/23/20 25 07/11/2019 imagi ng/di agnos tic resul t No observ ation record ed. [email or web address] Not Available 0 03/23/2025 14:20:36 03/23/20 25 08/21/2019 imagi ng/di agnos tic resul t No observ ation record ed. [email or web address] Not Available 0 03/23/2025 14:20:39 Result Notes None recorded. Problems Name Problem SNOMED Code Status Onset Date Resolution Date Notes Provider Name and Address Organization Details Recorded Time Essential hypertension 98326879 Active 2023 Antonia martinez [facility] 4 17:23:48 Hyperlipidemia 79472820 Active 2023 Antonia martinez, [facility] 4 17:23:59 Coronary arterioscleros is 11451690 [facility] 17:24:11 Gastroesophage al reflux disease 143199692 [facility] 17:24:43 Chronic obstructive pulmonary disease 02635455 Active 2023 [facility] 4 17:24:51 Chronic hepatitis C 216511203 Active 2023 [facility] 4 17:25:38 Internal hemorrhoids 72806310 Active 2023 Whitney Hui [facility] 4 10:25:38 External hemorrhoids 26070851 Active 2023 Whitney Hui [facility] 4 10:25:49 Rectal hemorrhage 95774457 Active 2023 Whitney Hui [facility] 4 10:26:43 Problem Notes None recorded. Procedures Surgical History Date Name Laterality Status Provider Name and Address Organization Details Recorded Time procedure on ankle completed [facility] 05/13/2024 17:26:34 procedure on back completed [facility] 05/13/2024 17:26:52 cardiac catheterization completed [facility] 05/13/2024 17:27:06 Colonoscopy with biopsy completed Not Available Health Note 05/14/2024 16:41:38 Removal of tonsils completed Not Available [facility]alt [facility] Note 05/14/2024 16:41:38 Imaging Results None recorded. Procedure Notes None recorded. Medical Equipment None Reported. Allergies Allergen ID Allergen Name Allergen Category Reaction Reaction Severity Criticality Documentation Date Start Date Code Code System Note Provider Name and Address Organization Details Recorded Time 6631912 codeine medicatio n chest pain Not available Not available 10/18/20232014 2670 RxNorm React ion: Chest Pain; Not Available [facility] 03:56:44 Medications Name Sig Start Date Stop Date Status Note LastModified by Organization Details LastModified Time doxycycline hyclate 100 mg capsule TAKE 1 CAPSULE BY MOUTH TWICE A DAY 05/15 completed Not Available Not Available Not Available carvedilol 12.5 mg tablet TAKE 1 TABLET BY MOUTH TWICE A DAY active Not Available Not Available No t Available prednisone 20 mg tablet TAKE 2 TABS BY MOUTH DAILY FOR 5 DAYS 05/15 completed Not Available Not Available Not Available amlodipine 5 mg tablet TAKE 1 TABLET BY MOUTH EVERY DAY active Not Available Not Available No t Available omeprazole 40 mg capsule,elida yed release Take 1 capsule every day by oral route. active Not Available Not Available No t Available isosorbide mononitrate ER 120 mg tablet,exten ded release 24 hr TAKE 1 TABLET BY MOUTH EVERY DAY active Not Available Not Available No t Available ferrous sulfate 325 mg (65 mg iron) tablet TAKE 1 TABLET BY MOUTH TWICE A DAY active Not Available Not Available No t Available omeprazole 20 mg capsule,elida yed release TAKE 1 CAPSULE BY MOUTH EVERY DAY 05/15 completed Not Available Not Available Not Available albuterol sulfate HFA 90 mcg/actuatio n aerosol inhaler TAKE 1 PUFF EVERY 4 TO 6 HOURS NEEDED active Not Available Not Available No t Available Vitals Date Recorded Body height Body mass index (BMI) Body weight Heart rate Systolic And Diastolic Provider Name and Address Organization Details Last Updated DateTime 05/15/2024 170.18 cm 20.2 kg/m2 33940.42 g 74 /min 132/75 mm[Hg] Sarah Giraldo [facility] 05/15/2024 15:20:54 Social History Question Answer Notes LastModified by Organizat ion Details LastModified Time Tobacco Smoking Status Current Every Day Smoker Not Available Health Note 05/14/2024 16:41:38 Do You Have An Advance Directive? No [email or web address] Information not available 05/14/2024 What Is Your Level Of Caffeine Consumption? Moderate [email or web address] Information not available 05/14/2024 Which Illicit Or Recreational Drugs Have You Used? Marijuana [email or web address] Information not available 05/14/2024 How Many Times Per Week Do You Exercise? Less Than 1 Time Per Week [email or web address] Information not available 05/14/2024 How Many Packs Per Day (PPD)? 1/2 Pack Per Day [email or web address] Information not available 05/14/2024 How Long Have You Smoked? 53 Years [email or web address] Information not available 05/14/2024 Do You Have A Medical Power Of Traffic Operations Manager? Yes [email or web address] Information not available 05/14/2024 What Was The Date Of Your Most Recent Tobacco Screening? 05/15/2024 [email or web address] Information not available 05/14/2024 What Is Your Relationship Status? [email or web address] Information not available 05/14/2024 Sex: Unknown Functional Status Question Answer Note LastModified by Organizat ion Details LastModified Time How many times per week do you consume alcohol? Less than 1 time per week [email or web address] Information not available 05/14/2024 Do you use any illicit or recreational drugs? Yes [email or web address] Information not available 05/14/2024 What is your level of alcohol consumption? Occasional [email or web address] Information not available 05/14/2024 Are you currently employed? No [email or web address] Information not available 05/14/2024 What is your occupation? Disabled [email or web address] Information not available 05/14/2024 What is your exercise level? None [email or web address] Information not available 05/14/2024 Mental Status None recorded. Family History Relationship Description Onset Age of this Age Resolved Age Notes LastModified by Organization Details LastModified Time Mother Arthritis [email or web address] Not available 05/14/2024 16:41:37 Mother Family history of malignant neoplasm [email or web address] Not available 2023 16:41:37 Mother Chronic obstructive pulmonary disease [email or web address] Not available 2023 16:41:37 Mother Hypertensive disorder [email or web address] Not available 2023 16:41:37 Sister Family history of malignant neoplasm [email or web address] Not available 2023 16:41:37 Maternal Grandmother Diabetes mellitus [email or web address] Not available 2023 16:41:37 Father Heart disease [email or web address] Not available 2023 16:41:37 Brother Hypertensive disorder [email or web address] Not available 2023 16:41:37 Medical History Condition Response Diabetes N Anxiety Disorder N Bleeding Disorder Y Attention-deficit Hyperactivity Disorder N High Blood Pressure Y Arthritis N Hyperlipidemia N Cancer N Stroke N Thyroid Problems N Asthma N Depression N COPD Y Anemia N Seizures N Heart Disease Y Fibromyalgia N Osteoporosis N Kidney Disease N Past Encounters Encounter ID Performer Location Encounter Start Date Encounter Closed Date Diagnosis/Indication Diagnosis SNOMED-CT Code Diagnosis ICD10 Code Diagnosis IMO Codes Diagnosis Note [id number] Alonso Gaston MD, [facility] ([place]) [address] [place] [address] 05/15/2024 15:03:50 05/22/2024 14:19:01 Internal hemorrhoids 22802713 K64.8 External hemorrhoids 239 [address]5989 K64.4 Additional diagnosis detail: Hemorrhoid s, external Rectal hemorrhage 914560 02 K62.5 Additional diagnosis detail: Blood per rectum Health Concerns Section Related Observation LastModified by Organization Detai ls LastModified Time None Recorded Concern Status LastModified by Organization Details LastModified Time None Recorded Advance Directives Directive N: Payers Insurance Date Sequence Insurance Name Policy Number Policy Hale Covered Member ID Hale Member ID Guarantor Name 05/23/2024 1 [facility] - DOS ON OR AFTER 21 (MEDICAID REPLACEMENT - HMO) Richard Wing [id number] Richard Wing Notes Date Note Type Note Provider Name and Address Organization Details Recorded Time 05/15/2024 text/html Richard is a 69-year-old male with swelling and pain of his hemorrhoids for several years. He has some mucus-like seepage as well. He has had colonoscopies and polyps in the past with the last being in 2021. He has a history of hepatitis C which was treated about four years ago but he has a history of liver cirrhosis with a history of thrombocytopenia and multiple EGDs for rubber band ligation of esophageal varices. He has been told he cannot even have some of his teeth removed in the pastgaf Richard Wingis a 69 year oldmalepresenting for care. Alonso Gaston MD, T[facility]REL [address] [place] [address], [phone], [facility] 05/17/2024 12:38:56
--- OUTSIDE RECORDS SUMMARY | 2025-06-19 07:57 | XMS_ITS | Encounter Summary ---
Author Organization [place] Address [facility] [place] [address] Care Team Providers Care Automatic Riveting Machine Operator Name Role Phone Natanael Temple MD Primary Care Provider [phone] Hector Rosenberg MD Unavailable [phone]- [phone] Caprice Rosales MD Unavailable Krishna Gao MD Primary Care Provider [phone] Encounter Details Date Type Department Care Team (Late st Contact Info) Description 04/13/2018 Abstract [facility] [address] [place] [address] Non-Staff, Provider Social History Tobacco Use Types Packs/Day Years Used Date Smoking Tobacco: Smoker, Current Status Unknown Cigarettes 0.5 56 Smokeless Tobacco: Never Alcohol Use Standard Drinks/Week Comments No 0 (1 standard drink = 0.6 oz pur e alcohol) Sex and Gender Information Value Date Recorded Sex Assigned at Male 11/07/2024 9:55 AM CONDENSER TUBE TENDER Legal Sex Male 2:01 AM CDT Gender [...] on filedocumented in this encounter Care Teams Automatic Riveting Machine Operator Relationship Specialty Start Date End Date Natanael Temple MD [address] [place] [phone] PCP - General FAMILY PRACTICE 10/20/16 06/26/24 Krishna Gao MD [address] [place] [phone] PCP - General FAMILY PRACTICE 06/27/24 Hector Rosenberg MD [address] [place] [phone] Dalbo Tool Shaper Setup Operator CARDIOVASCULAR DISEASE 10/09/17 Caprice Rosales MD [address] [place] [phone] Consulting Physician INFECTIOUS DISEASE 04/03/19 documented as of this encounter
--- OUTSIDE RECORDS SUMMARY | 2025-06-19 07:57 | XMS_ITS | Encounter Summary ---
Author Organization [facility] Address [address] [place] [address] Care Team Providers Care Director Of Quality Name Role Phone Natanael Temple MD Primary Care Provider [phone] Hector Rosenberg MD Unavailable [phone]- [phone] Caprice Rosales MD Unavailable Krishna Gao MD Primary Care Provider [phone] Encounter Details Date Type Department Care Team (Late st Contact Info) Description 04/09/2018 Abstract [facility] [address] [place] [phone] Non-Staff, Provider Social History Tobacco Use Types Packs/Day Years Used Date Smoking Tobacco: Smoker, Current Status Unknown Cigarettes 0.5 56 Smokeless Tobacco: Never Alcohol Use Standard Drinks/Week Comments No 0 (1 standard drink = 0.6 oz pur e alcohol) Sex and Gender Information Value Date Recorded Sex Assigned at Male 11/07/2024 9:55 AM MANAGER HAIR Legal Sex Male 2:01 AM CDT Gender [...] PLATELETS LEUKOCYTES REDUCED Routine 09/21/2017 3:43 PM MANAGER HAIR CBC (OUTSIDE LAB) Routine 09/21/2017 documented in this encounter Results * CBC (OUTSIDE LAB) (09/21/2017) WBC 3.8 HGB 13.1 HCT 39.1 PLT 43 RBC 4.30 MCV 91 MCH 30.5 MCHC 33.5 RDW 15.3 09/21/2017 Provider Non-Staff LAB-OUTSIDE/ABSTRACTED Final Result documented in this encounter Visit Diagnoses Not on filedocumented in this encounter Care Teams Director Of Quality Relationship Specialty Start Date End Date Natanael Temple MD [address] [place], [place] [phone] PCP - General FAMILY PRACTICE 10/20/16 06/26/24 Krishna Gao MD [address] [place] [address] PCP - General FAMILY PRACTICE 06/27/24 Hector Rosenberg MD [address] [place], [place] [phone] [place] [employer] Gas Service Helper CARDIOVASCULAR DISEASE 10/09/17 Caprice Rosales MD [address] [place], [place] [phone] Consulting Physician INFECTIOUS DISEASE 04/03/19 documented as of this encounter
--- OUTSIDE RECORDS SUMMARY | 2025-06-19 07:57 | XMS_ITS | Clinical Summary ---
Author Organization [facility] Address [address] [place] [address] Phone Care Team Providers Care Parts Clerk Name Role Phone Inocente Beltran APRN, JANI [...] Comments Blood Pressure 116/68 09/01/2022 9:19 AM DIRECT MARKETING ANALYST Pulse 75 09/01/2022 9:19 AM DIRECT MARKETING ANALYST Temperature 36.3 C (97.4 F) 08/20/2019 4:44 PM DIRECT MARKETING ANALYST Respiratory Rate 17 08/20/2019 5:20 PM DIRECT MARKETING ANALYST Oxygen Saturation 98% 08/20/2019 5:20 PM DIRECT MARKETING ANALYST Inhaled Oxygen Concentration - - Weight 63.5 kg (140 lb) 09/01/2022 9:03 AM DIRECT MARKETING ANALYST Height 170.2 cm (5' 7) 09/01/2022 9:03 AM DIRECT MARKETING ANALYST Body Mass Index 21.93 09/01/2022 9:03 AM DIRECT MARKETING ANALYST Plan of Treatment Health Maintenance Due Date [...] Insurance MEDICAID [employer] Care Teams Parts Clerk Relationship Specialty Start Date End Date Inocente Beltran APRN, VIDEO ARCADE MANAGER [address] [address] PCP - General Advanced Practice Nurse 06/21/22
--- OUTSIDE RECORDS SUMMARY | 2025-06-19 07:57 | XMS_ITS | Encounter Summary ---
Author Organization [facility] Address [address] [place] [address] Care Team Providers Care [place] Machine Operator Name Role Phone Natanael Temple MD Primary Care Provider [phone] Hector Rosenberg MD Unavailable +- [phone] Caprice Rosales MD Unavailable Krishna Gao MD Primary Care Provider [phone] Encounter Details Date Type Department Care Team (Late st Contact Info) Description 12/02/2017 Abstract [facility] CONVERSION [address] [place] [address] , Generic MD Roselia Social History Tobacco Use Types Packs/Day Years Used Date Smoking Tobacco: Smoker, Current Status Unknown Cigarettes 0.5 56 Smokeless Tobacco: Never Alcohol Use Standard Drinks/Week Comments No 0 (1 standard drink = 0.6 oz pur e alcohol) Sex and Gender Information Value Date Recorded Sex Assigned at Male 11/07/2024 9:55 AM RANGE MANAGER Legal Sex Male 2:01 AM CDT Gender Identity Not on file Sexual Orientation Not on file Occupation Industry Job Start Date Job End Date Disability Not on file Not on file Not on file documented as of this encounter Plan of Treatment Not on file documented as of this encounter Visit Diagnoses Not on filedocumented in this encounter Care Teams [place] Machine Operator Relationship Specialty Start Date End Date Natanael Temple MD [address] [place] [phone] PCP - General FAMILY PRACTICE 10/20/16 06/26/24 Krishna Gao MD [address] [place] [phone] PCP - General FAMILY PRACTICE 06/27/24 Hector Rosenberg MD [address] [place] [phone] [place] Shell Gatherer CARDIOVASCULAR DISEASE 10/09/17 Caprice Rosales MD [address] [place] [phone] Consulting Physician INFECTIOUS DISEASE 04/03/19 documented as of this encounter
--- OUTSIDE RECORDS SUMMARY | 2025-06-19 07:57 | XMS_ITS | Clinical Summary ---
Author Organization [facility] Address [address] [place] [address] Care Team Providers Care Wood Grainer Name Role Phone Hector Rosenberg MD Unavailable [phone] Caprice Rosales MD Unavailable Krishna Gao MD Primary Care Provider [phone] Allergies Active Allergy Reactions Criticality Noted Date [...] Diagnosed Date Near syncope 08/03/2018 Esophageal varices ([facility]) 06/10/2017 Iron deficiency 12/05/2016 Atherosclerosis of coronary artery 12/05/2016 Esophageal reflux 02/16/2016 Chronic cough 11/06/2015 Tobacco abuse 10/01/2015 Thrombocytopenia 10/01/2015 Anemia 09/30/2015 Gastrointestinal hemorrhage 09/30/2015 Liver cirrhosis ([facility]) 09/30/2015 Splenomegaly 09/30/2015 Subsequent non-ST elevation (NSTEMI) myocardial infarction ([facility]) 09/30/2015 Hyperlipidemia Hypertension 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 Overview (10/23/2016): small NSTEMI 06/2015 Thrombocytopenia Overview (10/23/2016): 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 Encounters Date Type Department Care Team Description 03/19/2025 Travel from Last 3 Months Family History Medical History Relation Comments Heart Attack Brother Stent Cardiac Brother Valve Disease Brother Heart Attack Father [place] Father Stent Cardiac Mother Relation Status Comments [...] Sex Assigned at Male 11/07/2024 9:55 AM SALES SPECIAL AGENT Legal Sex Male 2:01 AM CDT Gender [...] 2017 ASCVD LDL 02/21/2019 02/21/2018 COVID-19 Vaccine (1 - season) 2025 DTaP, Tdap and Td Vaccines (2 - [...] CHEST W CON Routine 09/27/2019 9:56 AM SALES SPECIAL AGENT Abnormal chest xray LIPID PANEL Routine 02/21/2018 from Last 3 Months or Most Recently Relevant to Health Maintenance Results * CT CHEST W CON (09/27/2019 9:56 AM SALES SPECIAL AGENT) Anatomical Region Laterality Modality Chest Computed Tomogra phy 09/27/2019 2:13 PM SALES SPECIAL AGENT Impressions 09/27/2019 2:24 PM SALES SPECIAL AGENT Impression: 1. Central bronchial wall thickening could [...] 09/27/2019 2:13 PM Narrative 09/27/2019 2:24 PM SALES SPECIAL AGENT Date: 09/27/2019 9:56 AM. Exam: CT CHEST [...] There is scant mucus layering in the eyssenia. There are scattered nodules associated with the [...] Health Maintenance Insurance [employer] Care Teams Wood Grainer Relationship Specialty Start Date End Date Krishna Gao MD [address] [place] [phone] PCP - General FAMILY PRACTICE 06/27/24 Hector Rosenberg MD [place] Equipment Operator Warehouse CARDIOVASCULAR DISEASE 10/09/17 Caprice Rosales MD Consulting Physician INFECTIOUS DISEASE 04/03/19
[2025-06-19 08:11] LABS: Hematocrit 40.2 % (37.0-46.0); Hemoglobin 13.5 g/dL (12.4-15.3); Immature Granulocyte Percent A 0.2 % (0.0-0.0); Immature Platelet Fraction Pct 2.4 % (1.0-7.0); Lymphocytes Absolute Auto 0.71 K/mm3 (1.10-4.50); Mean Corpuscular HGB Conc 33.6 g/dL (32-36); Mean Corpuscular Hemoglobin 31.6 pg (27.0-31.0); Mean Corpuscular Volume 94.1 fL (78.0-102.0); Nucleated Red Blood Cells Absolute Auto 0.00 K/mm3 (0.00-0.00); Nucleated Red Blood Cells Perc 0.0 % (0-0.0); Platelet Count Result 68 K/mm3 (150-420); Red Blood Count 4.27 M/mm3 (4.70-6.10); White Blood Count 4.2 K/mm3 (4.8-10.8)
[2025-06-19 09:08] LABS: Alanine Aminotransferase 25 U/L (6-50); Albumin Level 4.0 g/dL (3.5-5.1); Alkaline Phosphatase 107 U/L (38-126); Anion Gap 9 mmol/L (4-12); Aspartate Amino Transferase 35 U/L (17-59); Bilirubin,Total 0.6 mg/dL (0.2-1.3); Blood Urea Nitrogen 8 mg/dL (9-20); Calcium 9.0 mg/dL (8.4-10.2); Carbon Dioxide 28 mmol/L (22-30); Chloride 104 mmol/L (98-107); Estimated Glomerular Filt Rate > 60; Glucose 87 mg/dL (65-110); Osmolality Calculated 289 mOsm/kg (285-295); Potassium 4.2 mmol/L (3.4-5.0); Sodium 141 mmol/L (137-145); Total Protein 7.2 g/dL (6.3-8.2)
[2025-06-19 09:39] LABS: Thyroid Stimulating Hormone 1.570 uIU/mL (0.465-4.680)
== END 2025-06-19 07:52 | disposition home or self-care (01) ==
LOC: CHSLAB 07:53
PROVIDERS: PCP Family Medicine; Visit Provider Internal Medicine Hematology
DX: C22.0 Liver cell carcinoma (principal)
CPT/HCPCS: 36415; 80053; 80074; 82533; 84443; 85025; 85055

== ENCOUNTER 2025-07-30 09:42 | Outpatient (CLI) | payer OTHER, SELFPAY ==
--- NOTE | ~2025-07-30 | XR_ITS ---
Examination: XR chest 2V Clinical History: COUGH/FEVER Comparison: Chest abdomen pelvis 04/02/2025 Technique: PA and Lateral Findings: Right chest Mediport. Cardiomediastinal silhouette normal size and configuration. 5 mm nodule right lower lobe. No acute bony abnormality. IMPRESSION: 1. No acute cardiopulmonary findings. 2. 5 mm nodule right lower lobe. Recommend surveillance on future scans and/or CT chest in 3 months. Reviewed, dictated and finalized at location R. REPAIRER
[2025-07-30 09:45] VITALS: BP 110/63; PULSE 80; RESP 14; TEMP 37.2; O2SAT 96; BMI 21.0
[2025-07-30 10:05] LABS: Hematocrit 35.1 % (37.0-46.0); Hemoglobin 11.9 g/dL (12.4-15.3); Immature Granulocyte Percent A 0.5 % (0.0-0.0); Immature Platelet Fraction Pct 1.9 % (1.0-7.0); Lymphocytes Absolute Auto 0.62 K/mm3 (1.10-4.50); Mean Corpuscular HGB Conc 33.9 g/dL (32-36); Mean Corpuscular Hemoglobin 31.2 pg (27.0-31.0); Mean Corpuscular Volume 92.1 fL (78.0-102.0); Nucleated Red Blood Cells Absolute Auto 0.00 K/mm3 (0.00-0.00); Nucleated Red Blood Cells Perc 0.0 % (0-0.0); Platelet Count Result 68 K/mm3 (150-420); Red Blood Count 3.81 M/mm3 (4.70-6.10); White Blood Count 6.2 K/mm3 (4.8-10.8)
[2025-07-30 10:14] LABS: Alanine Aminotransferase 17 U/L (6-50); Albumin Level 3.8 g/dL (3.5-5.1); Alkaline Phosphatase 123 U/L (38-126); Anion Gap 5 mmol/L (4-12); Aspartate Amino Transferase 22 U/L (17-59); Bilirubin,Total 2.0 mg/dL (0.2-1.3); Blood Urea Nitrogen 9 mg/dL (9-20); Calcium 8.7 mg/dL (8.4-10.2); Carbon Dioxide 27 mmol/L (22-30); Chloride 100 mmol/L (98-107); Estimated Glomerular Filt Rate > 60; Glucose 136 mg/dL (65-110); Osmolality Calculated 274 mOsm/kg (285-295); Potassium 3.7 mmol/L (3.4-5.0); Sodium 132 mmol/L (137-145); Total Protein 6.8 g/dL (6.3-8.2)
--- OUTSIDE RECORDS SUMMARY | 2025-07-30 10:43 | XMS_ITS | Encounter Summary ---
Author Organization [facility] Address [address] [place] [address] Care Team Providers Care Business Job Titles Name Role Phone Natanael Temple MD Primary Care Provider [phone] Hector Rosenberg MD Unavailable [phone]- [phone] Caprice Rosales MD Unavailable Krishna Gao MD Primary Care Provider [phone] Encounter Details Date Type Department Care Team (Late st Contact Info) Description 04/09/2018 Abstract [facility] [address] [place] [phone] Non-Staff, Provider Social History Tobacco Use Types Packs/Day Years Used Date Smoking Tobacco: Smoker, Current Status Unknown Cigarettes 0.5 56 Smokeless Tobacco: Never Alcohol Use Standard Drinks/Week Comments No 0 (1 standard drink = 0.6 oz pur e alcohol) Sex and Gender Information Value Date Recorded Sex Assigned at Male 11/07/2024 9:55 AM LOSS PREVENTION OPERATIONS MANAGER Legal Sex Male 2:01 AM CDT [...] PLATELETS LEUKOCYTES REDUCED Routine 09/21/2017 3:43 PM LOSS PREVENTION OPERATIONS MANAGER CBC (OUTSIDE LAB) Routine 09/21/2017 documented in this encounter Results * CBC (OUTSIDE LAB) (09/21/2017) WBC 3.8 HGB 13.1 HCT 39.1 PLT 43 RBC 4.30 MCV 91 MCH 30.5 MCHC 33.5 RDW 15.3 09/21/2017 Provider Non-Staff LAB-OUTSIDE/ABSTRACTED Final Result documented in this encounter Visit Diagnoses Not on filedocumented in this encounter Care Teams Business Job Titles Relationship Specialty Start Date End Date Natanael Temple MD [address] [place], [place] [phone] PCP - General FAMILY PRACTICE 10/20/16 06/26/24 Krishna Gao MD [address] [place] [address] PCP - General FAMILY PRACTICE 06/27/24 Hector Rosenberg MD [address] [place], [place] [phone] [employer] Industrial/Organizational Psychologist CARDIOVASCULAR DISEASE 10/09/17 Caprice Rosales MD [address] [place], [place] [address] Consulting Physician INFECTIOUS DISEASE 04/03/19 documented as of this encounter
--- OUTSIDE RECORDS SUMMARY | 2025-07-30 10:43 | XMS_ITS | Clinical Summary ---
Author Organization [facility] Address [address] [place] [address] Care Team Providers Care Trauma Nurse Name Role Phone Hector Rosenberg MD Unavailable [phone] Caprice Rosales MD Unavailable Krishna Gao MD [...] Diagnosed Date Near syncope 08/03/2018 Esophageal varices 06/10/2017 Iron deficiency 12/05/2016 Atherosclerosis of coronary artery 12/05/2016 Esophageal reflux 02/16/2016 Chronic cough 11/06/2015 Tobacco abuse 10/01/2015 Thrombocytopenia 10/01/2015 Anemia 09/30/2015 Gastrointestinal hemorrhage 09/30/2015 Liver cirrhosis 09/30/2015 Splenomegaly 09/30/2015 Subsequent non-ST elevation (NSTEMI) myocardial infarction 09/30/2015 Hyperlipidemia Hypertension Coronary artery disease of n ative artery of [place] heart with stable angina pectoris Overview (10/23/2016): small NSTEMI 06/2015 Thrombocytopenia Overview (10/23/2016): 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 Family History Medical History Relation Comments Heart Attack Brother Stent Cardiac Brother Valve Disease Brother Heart Attack Father [place] Father Stent Cardiac Mother Relation Status Comments [...] Sex Assigned at Male 11/07/2024 9:55 AM RN MEDICAL INPATIENT SERVICES Legal Sex Male 2:01 AM CDT Gender [...] Colorectal Cancer Screening Colonoscopy (10 Years) 1957 Hepatitis A Vaccines (1 of 2 - Risk 2-dose series) 1976 Zoster Vaccines (1 of 2) 2007 Pneumococcal Vaccine: 50+ Years (2 of 2 - PCV) 09/18/2015 09/18/2014 RSV Immunization or 60+ Years (1 - Risk 60-74 years 1-dose series) 2017 ASCVD LDL 02/21/2019 02/21/2018 COVID-19 Vaccine (1 - 2024- season) 2025 Influenza Adult (#1) 2025 07/04/2019, 07/17/2018, 05/24/2017, Additional history exists DTaP, Tdap and Td Vaccines (2 - Td or Tdap) 08/20/2029 08/20/2019, 09/18/2014 Hepatitis C Completed 07/08/2020, 12/2018, 08/21/2019, Additional history exists Meningococcal B Vaccine Aged Out No l onger eligible based on patient's age to complete this topic Meningococcal Vaccine Aged Out No adolfo eden eligible based on patient's age to complete this topic RSV Immunizations Under 20 Months Aged Out No longer eligible based on patient's age to complete this topic Procedures Procedure Name Priority Date/Time Associated Diagnosis Comments LIPID PANEL Routine 02/21/2018 from Last 3 Months or Most Recently Relevant to Health Maintenance Results * LIPID PANEL (02/21/2018) CHOLESTEROL 118 HDL 35 TRIGLYCERIDES 81 LDL (CALCULATED) 67 VLDL CALCULATION 16 02/21/2018 us Doc [facility] Abstract LABORATORY Final Result from Last 3 Months or Most Recently Relevant to Health Maintenance Insurance [facility] Care Teams Trauma Nurse Relationship Specialty Start Date End Date Krishna Gao MD [address] [place] [phone] PCP - General FAMILY PRACTICE 06/27/24 Hector Rosenberg MD [place] [employer] Fabric Machine Operator CARDIOVASCULAR DISEASE 10/09/17 Caprice Rosales MD Consulting Physician INFECTIOUS DISEASE 04/03/19
--- OUTSIDE RECORDS SUMMARY | 2025-07-30 10:43 | XMS_ITS | Clinical Summary ---
Author Organization [facility] Address [address] [place] [address] Care Team Providers Care Company Controller Name Role Phone Krishna Gao MD Primary Care Provider Chantell Michael MD Unavailable Henry Gr MD Unavailable [phone] Nick Leal MD Unavailable [phone] Allergies Active Allergy Reactions Criticality Noted [...] (09/03/2020): Added automatically from request for surgery [id number] Elevated d-dimer Abdominal aortic aneurysm (AAA) without [...] often do you attend chur ch or pentecostal services? Never 03/17/2023 Do you belong to any clubs o r organizations such as faith groups, unions, fraternal or athletic groups, or [...] place to sleep or slept in a nursing home (including now)? No 03/17/2023 Personal Safety Answer Date Recorded Getting School Help Needed Not on file 03/23 Sex and Gender Information Value Date Recorded Sex Assigned at Not on file Legal Sex Male 9:35 AM SENIOR SAFETY SUPPORT MANAGER Gender Identity Not on file Sexual Orientation [...] 3:00 AM CDT COLONOSCOPY 09/08/2020 7:47 AM SENIOR SAFETY SUPPORT MANAGER from Last 3 Months or Most Recently [...] Jose Nelson M.D. KT: ABDIAS Report ID: [id number] Reading Location: [place] [address] Procedure Note Jose Nelson MD - 03/16/2023 [...] Jose Nelson M.D. KT: KT Report ID: [id number] Reading Location: [id number] Thiago Galloway MD IMG CT PROCEDURES Final Result * (ABNORMAL) Hepatitis panel, acute (01/20/2023 3:00 AM CDT) Hep A IgM Nonreactive Nonreactive [facility] ([place]AN[place]U[facility]ITA) Comment: Interpretive Data: If Hep A IgM Ab is reported as Equivocal, a new sample should be drawn in two weeks for testing. Current interpretive data was last revised on 19. Testing performed by: [address] [address] Hep B core IgM Nonreactive Nonreactive [facility] (SANJUANITA) Comment: Interpretive Data If HepB Core IgM Ab is reported as Equivocal, a new sample should be drawn in two weeks for testing. Current interpretive data was last revised on 19. Testing performed by: [address] [address] Hep C Ab Reactive(A) Nonreactive [facility] [...] last revised on 2019. Testing performed by: [address] [address] HepBsAg Nonreactive Nonreactive [facility] ([place]JUANITA) Comment:Testing performed by : [address] [address] Blood 01/20/2023 3:00 AM CDT 01/20/2023 9:09 AM CDT Holly MARQUEZ LAB MICROBIOLOGY - GENER AL ORDERABLES Final Result [facility] (SANJUANITA) [address] [facility] [place] [address] * COLONOSCOPY (09/08/2020 7:47 AM SENIOR SAFETY SUPPORT MANAGER) Anatomical Region Laterality Modality Other Narrative Procedure Note Deirdre Ayala MD - 09/08/2020 7:47 AM CST [facility] Endoscopy Lab Patient Name: Richard Wing Procedure [...] pathology results. Procedure Code(s): --- Professional --- 72352, Colonoscopy, flexible; with removal oftumor(s), polyp(s), or other lesion(s) by snare technique 14363, 59, Colonoscopy, flexible; with removal of tumor(s), polyp(s), or other lesion(s) by hot biopsy forceps Diagnosis Code(s): --- Professional --- Z86.010, Personal history of colonic polyps D12.4, Benign neoplasm of descending colon D12.3, Benign neoplasm of transverse colon (hepatic flexure or splenic flexure) D12.5, Benign neoplasm of sigmoid colon K64.8, Other hemorrhoids CPT copyright 2017 [employer]. All rights reserved. The codes documented in this report are preliminary and upon getter operator reviewmay be revised to meet current compliance requirements. Electronically signed by Deirdre Ayala M.D. Deirdre Ayala M.D. 09/08/2020 8:47:29 AM Number of Addenda: 0 Note Initiated On: 09/08/2020 7:47 AM Deirdre Ayala MD ENDOSCOPY PROCEDURES Fi nal Result from Last 3 Months or Most Recently Relevant to Health Maintenance Insurance Advance Directives For more information, please contact: [phone] * Full Code (Latest Code Status on File) Date Activated Date Inactivated Comments 03/16/2023 8:04 PM 03/19/2023 2:43 PM * Full Code Date Activated Date Inactivated Comments 01/19/2023 8:48 AM 01/21/2023 3:59 PM Care Teams Company Controller Relationship Specialty Start Date End Date Krishna Gao MD PCP - General Family Medicine 12/17/21 Chantell Michael MD [address] [place] [address] [address] [place] [address] Consulting Physician Gastroenterology 01/21/23 Henry Gr MD [address] [place] [address] [address] [place] [address] Consulting Physician Hematology and Oncology 02/22/23 Nick Leal MD [address] [place] [address] [address] [place] [address] Consulting Physician Gastroenterology 03/19/23
--- OUTSIDE RECORDS SUMMARY | 2025-07-30 10:43 | XMS_ITS | Encounter Summary ---
Author Organization [facility] Address [address] [place] [address] Care Team Providers Care Brand Advocate Name Role Phone Natanael Temple MD Primary Care Provider [phone] Hector Rosenberg MD Unavailable [phone]- [phone] Caprice Rosales MD Unavailable Krishna Gao MD Primary Care Provider [phone] Encounter Details Date Type Department Care Team (Late st Contact Info) Description 02/02/2016 Abstract [facility] [address] [place] [phone] Ndaer Doshi MD Social History Tobacco Use Types Packs/Day Years Used Date Smoking Tobacco: Smoker, Current Status Unknown Cigarettes Alcohol Use Standard Drinks/Week Comments No 0 (1 standard drink = 0.6 oz pur e alcohol) Sex and Gender Information Value Date Recorded Sex Assigned at Male 11/07/2024 9:55 AM VISITOR SERVICES ASSOCIATE Legal Sex Male 2:01 AM CDT Gender Identity Not on file Sexual Orientation Not on file Occupation Industry Job Start Date Job End Date Disability Not on file Not on file Not on file documented as of this encounter Plan of Treatment Not on file documented as of this encounter Visit Diagnoses Not on filedocumented in this encounter Care Teams Brand Advocate Relationship Specialty Start Date End Date Natanael Temple MD [address] [place] [phone] PCP - General FAMILY PRACTICE 10/20/16 06/26/24 Krishna Gao MD [address] [place] [phone] PCP - General FAMILY PRACTICE 06/27/24 Hector Rosenberg MD [address] [place] [phone] [place] Cured Meats Supervisor CARDIOVASCULAR DISEASE 10/09/17 Caprice Rosales MD [address] [place] [phone] Consulting Physician INFECTIOUS DISEASE 04/03/19 documented as of this encounter
--- OUTSIDE RECORDS SUMMARY | 2025-07-30 10:43 | XMS_ITS | Encounter Summary ---
Author Organization [facility] Address [address] [place] [address] Care Team Providers Care Retail Department Manager Name Role Phone Natanael Temple MD Primary Care Provider [phone] Hector Rosenberg MD Unavailable [phone]- [phone] Caprice Rosales MD Unavailable Krishna Gao MD Primary Care Provider [phone] Encounter Details Date Type Department Care Team (Late st Contact Info) Description 12/02/2017 Abstract [facility] CONVERSION [address] [place] [address] , Generic MD Roselia Social History Tobacco Use Types Packs/Day Years Used Date Smoking Tobacco: Smoker, Current Status Unknown Cigarettes 0.5 56 Smokeless Tobacco: Never Alcohol Use Standard Drinks/Week Comments No 0 (1 standard drink = 0.6 oz pur e alcohol) Sex and Gender Information Value Date Recorded Sex Assigned at Male 11/07/2024 9:55 AM SUPERVISOR CORE DRILLING Legal Sex Male 2:01 AM CDT Gender Identity Not on file Sexual Orientation Not on file Occupation Industry Job Start Date Job End Date Disability Not on file Not on file Not on file documented as of this encounter Plan of Treatment Not on file documented as of this encounter Visit Diagnoses Not on filedocumented in this encounter Care Teams Retail Department Manager Relationship Specialty Start Date End Date Natanael Temple MD [address] [place] [phone] PCP - General FAMILY PRACTICE 10/20/16 06/26/24 Krishna Gao MD [address] [place] [phone] PCP - General FAMILY PRACTICE 06/27/24 Hector Rosenberg MD [address] [place] [phone] [place] Build Technician CARDIOVASCULAR DISEASE 10/09/17 Caprice Rosales MD [address] [place] [phone] Consulting Physician INFECTIOUS DISEASE 04/03/19 documented as of this encounter
--- OUTSIDE RECORDS SUMMARY | 2025-07-30 10:43 | XMS_ITS | Encounter Summary ---
Author Organization [facility] Address [facility] [place] [address] Care Team Providers Care Build Manager Name Role Phone Natanael Temple MD Primary Care Provider [phone] Hector Rosenberg MD Unavailable [phone]- [phone] Caprice Rosales MD Unavailable Krishna Gao MD Primary Care Provider [phone] Encounter Details Date Type Department Care Team (Late st Contact Info) Description 02/23/2019 Abstract [facility] CONVERSION [address] [place] [address] , Generic MD Roselia Social History Tobacco Use Types Packs/Day Years Used Date Smoking Tobacco: Every Day Cigarettes 0.5 56 Smokeless Tobacco: Never Alcohol Use Standard Drinks/Week Comments No 0 (1 standard drink = 0.6 oz pur e alcohol) Sex and Gender Information Value Date Recorded Sex Assigned at Male 11/07/2024 9:55 AM SODA TESTER Legal Sex Male 2:01 AM CDT Gender Identity Not on file Sexual Orientation Not on file Occupation Industry Job Start Date Job End Date Disability Not on file Not on file Not on file documented as of this encounter Plan of Treatment Not on file documented as of this encounter Visit Diagnoses Not on filedocumented in this encounter Care Teams Build Manager Relationship Specialty Start Date End Date Natanael Temple MD [address] [place] [phone] PCP - General FAMILY PRACTICE 10/20/16 06/26/24 Krishna Gao MD [address] [place] [phone] PCP - General FAMILY PRACTICE 06/27/24 Hector Rosenberg MD [address] [place] [phone] [place] Event Lighting Specialist CARDIOVASCULAR DISEASE 10/09/17 Caprice Rosales MD [address] [place] [phone] Consulting Physician INFECTIOUS DISEASE 04/03/19 documented as of this encounter
--- OUTSIDE RECORDS SUMMARY | 2025-07-30 10:43 | XMS_ITS | Clinical Summary ---
Author Organization [facility] Address [address] [place] [address] Phone Care Team Providers Care Manager Biologics Name Role Phone Inocente Beltran APRN, JANI [...] Comments Blood Pressure 116/68 09/01/2022 9:19 AM PIECE DYEING MACHINE TENDER Pulse 75 09/01/2022 9:19 AM PIECE DYEING MACHINE TENDER Temperature 36.3 C (97.4 F) 08/20/2019 4:44 PM PIECE DYEING MACHINE TENDER Respiratory Rate 17 08/20/2019 5:20 PM PIECE DYEING MACHINE TENDER Oxygen Saturation 98% 08/20/2019 5:20 PM PIECE DYEING MACHINE TENDER Inhaled Oxygen Concentration - - Weight 63.5 kg (140 lb) 09/01/2022 9:03 AM PIECE DYEING MACHINE TENDER Height 170.2 cm (5' 7) 09/01/2022 9:03 AM PIECE DYEING MACHINE TENDER Body Mass Index 21.93 09/01/2022 9:03 AM PIECE DYEING MACHINE TENDER Plan of Treatment Health Maintenance Due Date [...] Insurance MEDICAID [employer] Care Teams Manager Biologics Relationship Specialty Start Date End Date Inocente Beltran APRN, DRAW FRAME TENDER [address] [address] PCP - General Advanced Practice Nurse 06/21/22
--- OUTSIDE RECORDS SUMMARY | 2025-07-30 10:43 | XMS_ITS | Encounter Summary ---
Author Organization [facility] Address [facility] [place] [address] Care Team Providers Care Sales And Service Advisor Name Role Phone Natanael Temple MD Primary Care Provider [phone] Hector Rosenberg MD Unavailable [phone] Caprice Rosales MD Unavailable Krishna Gao MD Primary Care Provider [phone] Encounter Details Date Type Department Care Team (Late st Contact Info) Description 04/13/2018 Abstract [facility] [address] [place] [address] Non-Staff, Provider Social History Tobacco Use Types Packs/Day Years Used Date Smoking Tobacco: Smoker, Current Status Unknown Cigarettes 0.5 56 Smokeless Tobacco: Never Alcohol Use Standard Drinks/Week Comments No 0 (1 standard drink = 0.6 oz pur e alcohol) Sex and Gender Information Value Date Recorded Sex Assigned at Male 11/07/2024 9:55 AM FARM MACHINERY MECHANIC Legal Sex Male 2:01 AM CDT Gender [...] on filedocumented in this encounter Care Teams Sales And Service Advisor Relationship Specialty Start Date End Date Natanael Temple MD [address] [place] [phone] PCP - General FAMILY PRACTICE 10/20/16 06/26/24 Krishna Gao MD [address] [place] [phone] PCP - General FAMILY PRACTICE 06/27/24 Hector Rosenberg MD [address] [place] [phone] [place] Rollout Manager CARDIOVASCULAR DISEASE 10/09/17 Caprice Rosales MD [address] [place] [phone] Consulting Physician INFECTIOUS DISEASE 04/03/19 documented as of this encounter
--- OUTSIDE RECORDS SUMMARY | 2025-07-30 10:43 | XMS_ITS | Encounter Summary ---
Author Organization [facility] Address [address] [place] [address] Care Team Providers Care Vegetable Grower Name Role Phone Natanael Temple MD Primary Care Provider [phone] Hector Rosenberg MD Unavailable [phone]- [phone] Caprice Rosales MD Unavailable Krishna Gao MD Primary Care Provider Encounter Details Date Type Department Care Team (Late st Contact Info) Description 03/15/2016 [facility] [address] [place] [phone] Nader Doshi MD Social History Tobacco Use Types Packs/Day Years Used Date Smoking Tobacco: Smoker, Current Status Unknown Sex and Gender Information Value Date Recorded Sex Assigned at Male 11/07/2024 9:55 AM ASSURANCE SERVICES MANAGER HEALTH CARE Legal Sex Male 2:01 AM CDT Gender [...] on filedocumented in this encounter Care Teams Vegetable Grower Relationship Specialty Start Date End Date Natanael Temple MD [address] [place] [phone] PCP - General FAMILY PRACTICE 10/20/16 06/26/24 Krishna Gao MD [address] [place] [phone] PCP - General FAMILY PRACTICE 06/27/24 Hector Rosenberg MD [address] [place] [phone] Wisdom Plate Embosser CARDIOVASCULAR DISEASE 10/09/17 Caprice Rosales MD [address] [place] [phone] Consulting Physician INFECTIOUS DISEASE 04/03/19 documented as of this encounter
[2025-07-30 10:45] LABS: Thyroid Stimulating Hormone 0.974 uIU/mL (0.465-4.680)
[2025-07-30 11:29] LABS: Influenza A QL RT-PCR Negative (Negative); Influenza B QL RT-PCR Negative (Negative); SARS-CoV-2 RNA PCR Negative (Negative)
[2025-07-30] MEDS: HEPARIN SODIUM LOCK FLUSH 500 UNITS/5 ML SYRINGE (11:35)
[2025-07-30 12:45] VITALS: BP 120/73; PULSE 78; RESP 16; O2SAT 96
--- NOTE | 2025-07-30 12:45 | PC.NURSE ---
Patient labs/xray results sent to Dr. Pagan. Hold treatment this week. Restart treatment next week. Patient has understanding.
== END 2025-07-30 09:43 | disposition home or self-care (01) ==
PROVIDERS: PCP Family Medicine
DX: C22.0 Liver cell carcinoma (principal); R91.1 Solitary pulmonary nodule; R05.9 Cough, unspecified; R50.9 Fever, unspecified; R53.83 Other fatigue; R63.4 Abnormal weight loss; Z20.822 Contact with and (suspected) exposure to COVID-19
CPT/HCPCS: 36415; 36591; 71046; 80053; 82533; 84443; 85025; 85055; 87636

== ENCOUNTER 2025-08-05 10:01 | Outpatient (CLI) | payer OTHER, SELFPAY ==
[2025-08-05 10:18] VITALS: BP 110/69; PULSE 74; RESP 16; TEMP 36.6; O2SAT 98
[2025-08-05 10:21] LABS: Hematocrit 35.5 % (37.0-46.0); Hemoglobin 12.3 g/dL (12.4-15.3); Immature Granulocyte Percent A 0.5 % (0.0-0.0); Immature Platelet Fraction Pct 1.6 % (1.0-7.0); Lymphocytes Absolute Auto 0.65 K/mm3 (1.10-4.50); Mean Corpuscular HGB Conc 34.6 g/dL (32-36); Mean Corpuscular Hemoglobin 31.6 pg (27.0-31.0); Mean Corpuscular Volume 91.3 fL (78.0-102.0); Nucleated Red Blood Cells Absolute Auto 0.00 K/mm3 (0.00-0.00); Nucleated Red Blood Cells Perc 0.0 % (0-0.0); Platelet Count Result 98 K/mm3 (150-420); Red Blood Count 3.89 M/mm3 (4.70-6.10); White Blood Count 7.8 K/mm3 (4.8-10.8)
[2025-08-05 10:24] VITALS: BMI 20.2
[2025-08-05 10:34] LABS: Alanine Aminotransferase 24 U/L (6-50); Albumin Level 3.8 g/dL (3.5-5.1); Alkaline Phosphatase 158 U/L (38-126); Anion Gap 9 mmol/L (4-12); Aspartate Amino Transferase 33 U/L (17-59); Bilirubin,Total 1.4 mg/dL (0.2-1.3); Blood Urea Nitrogen 5 mg/dL (9-20); Calcium 8.9 mg/dL (8.4-10.2); Carbon Dioxide 28 mmol/L (22-30); Chloride 96 mmol/L (98-107); Estimated CRCL calculation 68 ml/min; Estimated Glomerular Filt Rate > 60; Glucose 147 mg/dL (65-110); Osmolality Calculated 276 mOsm/kg (285-295); Potassium 3.8 mmol/L (3.4-5.0); Sodium 133 mmol/L (137-145); Total Protein 7.0 g/dL (6.3-8.2)
--- NOTE | 2025-08-05 11:35 | PC.NURSE ---
Patient's today's labs ok to treat. However, noted blood culture from port from 07/30/[address] Pagan notified and new orders received. Proceed with treatment if can get a peripheral vein. Repeat blood cultures x2 from port a cath.
[2025-08-05] MEDS: HEPARIN SODIUM LOCK FLUSH 500 UNITS/5 ML SYRINGE IV PUSH (13:06)
--- NOTE | 2025-08-05 13:07 | PC.NURSE ---
Patient tolerated Tremelimumab well. Will observe for 1 hour and give Durvalumab.
[2025-08-05] MEDS: DURVALUMAB IVPB (14:00)
[2025-08-05] MEDS: SODIUM CHLORIDE 0.9% IVPB (14:00)
[2025-08-05 15:16] VITALS: BP 103/70; PULSE 68; RESP 16; TEMP 36.5; O2SAT 97
--- NOTE | 2025-08-05 15:17 | PC.NURSE ---
Tolerated Durvalumab infusion well. SEE MAR/patient care notes.
--- NOTE | 2025-08-05 15:18 | PC.NURSE ---
Reports ride is here and would like to go. No s/sx of drug reaction noted or reported.
== END 2025-08-05 10:02 | disposition home or self-care (01) ==
PROVIDERS: PCP Family Medicine
DX: Z51.11 Encounter for antineoplastic chemotherapy (principal); C22.0 Liver cell carcinoma
CPT/HCPCS: 36415; 36591; 80053; 85025; 85055; 96413; 96417; J7050; J9173; J9347

== ENCOUNTER 2025-08-06 14:47 | Inpatient (IN) | payer OTHER, SELFPAY ==
[2025-08-06] VITALS (11 sets, daily range): BP systolic 113–139; BP diastolic 69–85; PULSE 60–88; RESP 16–20; TEMP 36.4–36.6; O2SAT 92–100; BMI 19.7
--- NOTE | ~2025-08-06 | XR_ITS ---
EXAMINATION: XR chest 1V portable DATE: 08/06/2025 15:44 INDICATION: Shortness of breath TECHNIQUE: A single frontal view of the chest was obtained. COMPARISON: July 30, 2025 FINDINGS: Patchy parenchymal markings in the left lung base suspicious for early developing infiltrate and/or aspiration. Remaining lung roy are clear. 5 mm nodule in the right lower lobe described on previous exam not as clearly seen on this exam. Heart shadow normal in size. Bones and upper abdomen unremarkable. Right internal jugular Mediport central catheter stable in position. IMPRESSION: 1. Early developing consolidative process in the left lower lobe. 2. 5 mm right base nodule not as clearly seen. See also report for chest x-ray dated July 30 recommended routine follow-up chest CT. Reviewed, dictated and finalized at location A. RINTENDENT CAR CONSTRUCTION
--- NOTE | ~2025-08-06 | CT_ITS ---
EXAMINATION: CTA chest PE protocol DATE: 08/06/2025 16:57 INDICATION: 70-year-old male with elevated d-dimer. History of cancer. TECHNIQUE: Computed tomography angiography (CTA) of the chest was performed with 100 mL Omnipaque-350 intravenous contrast timed to evaluate the pulmonary arteries. Coronal maximum intensity projection 3D-reconstructions were created by the technologist. Automated exposure control and iterative reconstruction technique were employed. The dose-length product was 180.20 mGy-cm. COMPARISON: Chest x-ray dated 08/06/2025. CT chest abdomen and pelvis dated 04/02/2025. FINDINGS: Emphysematous lungs. No acute pulmonary lesions. No evidence of pulmonary emboli. Atherosclerotic changes of the thoracic aorta. No evidence of dissection. Poorly defined masses of the liver and calcified gallstones are noted below the diaphragm in the partially visualized upper abdomen structures. IMPRESSION: 1. No evidence of pulmonary emboli. 2. Thoracic aorta shows significant atherosclerotic changes. No evidence of dissection. Emphysematous lungs. Reviewed, dictated and finalized at location T. CHECKER IMPRESSION: 1. No evidence of pulmonary emboli. 2. Thoracic aorta shows significant atherosclerotic changes. No evidence of dis section. Emphysematous lungs.
--- NOTE | 2025-08-06 14:53 | ED.SOB ---
HPI - SOB/Dyspnea General Chief Complaint: Shortness of Breath/Dyspnea Stated Complaint: cough Time Seen by Provider: 08/06/25 14:51 Source: patient Mode of arrival: ambulatory Limitations: no limitations History of Present Illness HPI Narrative: Patient is a 70-year-old male with known liver cancer during chemo treatment and having cough and COPD flare over the past 3 weeks. He has been coughing nonstop over 3 weeks. They did labs and a chest x-ray yesterday which were stable. He had outpatient COVID testing negative. There was a discussion about a positive blood culture from the port recently and I will do further research. MD elicited complaint: shortness of breath and cough Pertinent past history: COPD and other (Hypertension, GERD) Onset (ago): week(s) (3) Context: other (Patient is a cancer patient with cough and congestion and COPD flare over the past 3 weeks) Timing: constant and progressively worsening Severity: moderate Exacerbating factors: lying flat, exertion, movement, coughing, inspiration and deep breaths Relieving factors: nothing Known history of: COPD Associated symptoms: cough and sputum production Treatment prior to arrival: bronchodilator Related Data Home oxygen amount: none Home Medications ?Medication ?Instructions ?Recorded ?Confirmed ?Last Taken ?Type albuterol sulfate 90 mcg/actuation 2 inh inhalation QID PRN shortness 07/30/25 08/05/25 Unknown History aerosol inhaler (Ventolin HFA) of breath or wheezing amlodipine 5 mg tablet 5 mg PO DAILY 07/30/25 08/05/25 Unknown History carvedilol 12.5 mg tablet 12.5 mg PO Q12H 07/30/25 08/05/25 Unknown History isosorbide mononitrate 120 mg 120 mg PO DAILY 07/30/25 08/05/25 Unknown History tablet,extended release 24 hr omeprazole 40 mg capsule,delayed 40 mg PO DAILY 07/30/25 08/05/25 Unknown History release Allergies Allergy/AdvReac Type Severity Reaction Status Date / Time No Known Allergies Allergy Verified 08/06/25 14:58 Review of Systems Review of Systems: All systems reviewed & are unremarkable except as noted in HPI and below Constitutional: Constitutional: Reports no additional constitutional complaints Eyes: Eyes: Reports no additional eye complaints ENT: Reports system reviewed and no additional complaints, except as documented Cardiovascular: Cardiovascular: Reports no additional cardiovascular complaints Respiratory: Respiratory: Reports no additional respiratory complaints Gastrointestinal: Gastrointestinal: Reports no additional gastrointestinal complaints Genitourinary: Genitourinary: Reports no additional male genitourinary complaints Musculoskeletal: Musculoskeletal: Reports no additional musculoskeletal complaints Integumentary/Breasts: Skin/Breast: Reports system reviewed and no additional complaints, except as docu Neurologic: Reports system reviewed and no additional complaints, except as documented Psychiatric: Psychiatric: Reports no additional psychiatric complaints Endocrine: Endocrine: Reports no additional endocrine complaints Hematologic/Lymphatic: Hematologic/Lymphatic: Reports no additional hematologic/lymphatic complaints Allergic/Immunologic: Allergic/Immunologic: Reports no additional allergic/immunologic complaints [facility] History Medical History Patient denies medical problems Exam Const: General: healthy appearing Nutritional Appearance: well nourished Orientation/consciousness: patient oriented x3 HENMT: Head: normal to inspection Ears: external ears normal Face/Nose/Sinus: Normal external nose present Eyes: Conjunctivae: conjunctivae normal Pupils: Equal, round and reactive pupils present EOM: EOMs intact bilaterally Neck: Neck: normal visual inspection Chest: Chest palpation & inspection: normal inspection of the chest Resp: Effort & Inspection: abnormal respiratory effort, labored, no retractions, tachypneic and no use of accessory muscles Auscultation: not clear to auscultation bilaterally, no crackles, no rales, rhonchi, wheezes, breath sounds present and diminished lung sounds Other: Bilateral and throughout lungs for adventitious sounds Cardio: Rate: regular rate Rhythm: regular rhythm Heart sounds: no murmurs GI: Inspection: non-distended GI Palp: Yes Soft to palpation and No Tenderness to palpation present (GI) Auscultation: normal bowel sounds : General: Yes bladder normal to palpation Back/Spine/Pelvis: Back: no CVA tenderness Skin: General skin exam: normal color Rashes: no rashes Wounds: no wounds Neuro: General: patient oriented x3, moves all extremities and no meningeal signs Extrem: General: normal to inspection, no clubbing, cyanosis or edema and no pedal edema Psych: Mental Status: mental status grossly normal Affect: normal affect Attitude: cooperative Course Vital Signs Vital signs: Vital Signs Temperature 36.4 C 08/06/25 14:49 Pulse Rate 77 08/06/25 14:49 Respiratory Rate 20 08/06/25 14:49 Blood Pressure 133/74 08/06/25 14:49 Pulse Oximetry 98 08/06/25 14:49 Oxygen Delivery Room Air 08/06/25 14:49 Temperature 36.4 C 08/06/25 14:49 Pulse Rate 68 08/06/25 17:23 Respiratory Rate 16 08/06/25 17:23 Blood Pressure 139/69 08/06/25 15:45 Pulse Oximetry 98 08/06/25 17:23 Oxygen Delivery Room Air 08/06/25 15:45 Oxygen Flow Rate 0 08/06/25 17:23 MDM - SOB/Dyspnea MDM Narrative Medical decision making narrative: Patient is a 70-year-old male with current chemotherapy for liver cancer here with a cough and congestion of the chest for 3 weeks and COPD flare. Labs. EKG. Chest x-ray. Breathing treatment and steroids. I reviewed the cultures from the IV port which are appearance of contaminant however I was told that possibly this is a repeat of the same bacteria; I will do further research into this situation. Lab Data Attestation: I reviewed the patient's lab results. 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 08/06/25 15:14 08/06/25 15:14 Labs: Lab Results 08/06/25 08/06/25 08/06/25 Range/Units 15:06 15:14 15:15 WBC 8.8 (4.8-10.8) K/mm3 RBC 3.98 L (4.70-6.10) M/mm3 Hgb 12.4 (12.4-15.3) g/dL Hct 36.5 L (37.0-46.0) % MCV 91.7 (78.0-102.0) fL MCH 31.2 H (27.0-31.0) pg MCHC 34.0 (32-36) g/dL RDW 13.6 (11.6-14.4) % Plt Count 105 L (150-420) K/mm3 MPV 9.2 (8.7-11.0) fl Immature Gran % (Auto) 0.5 H (0.0-0.0) % Neut % (Auto) 84.4 H (50.0-70.0) % Lymph % (Auto) 4.7 L (18.0-42.0) % [place] % (Auto) 7.3 (2.0-11.0) % Eos % (Auto) 2.6 (1.0-6.0) % Baso % (Auto) 0.5 (0.0-1.0) % Lymph # (Auto) 0.41 L (1.10-4.50) K/mm3 [place] # (Auto) 0.64 (0.10-0.90) K/mm3 Eos # (Auto) 0.23 (0.02-0.50) K/mm3 Baso # (Auto) 0.04 (0.00-0.10) K/mm3 Abs Immat Gran (auto) 0.04 H (0.00-0.00) K/mm3 Absolute Neuts (auto) 7.45 H (1.70-7.20) K/mm3 Absolute Nucleated RBC 0.00 (0.00-0.00) K/mm3 Nucleated RBC % 0.0 (0-0.0) % % Immature Plt Fraction 2.1 (1.0-7.0) % D-Dimer 4.47 H (0.19-0.50) mg/L Sodium 134 L (137-145) mmol/L Potassium 4.2 (3.4-5.0) mmol/L Chloride 96 L (98-107) mmol/L Carbon Dioxide 29 (22-30) mmol/L Anion Gap 9 (4-12) mmol/L BUN 6 L (9-20) mg/dL Creatinine 0.76 (0.7-1.3) mg/dL Estim Creat Clear Calc 71 ml/min Estimated GFR > 60 (59 - ) Glucose 93 (65-110) mg/dL Calculated Osmolality 275 L (285-295) mOsm/kg Lactic Acid 1.2 (0.7-2.0) mmol/L Calcium 8.9 (8.4-10.2) mg/dL Total Bilirubin 1.5 H (0.2-1.3) mg/dL AST 59 (17-59) U/L ALT 33 (6-50) U/L Alkaline Phosphatase 177 H (38-126) U/L Troponin I < 0.012 (0.000-0.034) ng/mL NT-Pro-B Natriuret Pep 61 (19.9-100) pg/mL Total Protein 7.1 (6.3-8.2) g/dL Albumin 3.9 (3.5-5.1) g/dL Influenza A (RT-PCR) Negative (Negative) Influenza B (RT-PCR) Negative (Negative) RSV (RT-PCR) Negative (Negative) SARS-CoV-2 RNA (RT-PCR) Negative (Negative) ABG Data ABG results: 08/06/25 15:26 Puncture Site Left radial ABG pH 7.42 ABG pCO2 38.2 ABG pO2 77.1 ABG HCO3 24.4 ABG O2 Saturation 95.1 ABG Base Excess 0.2 Oxyhemoglobin 94.5 O2 Delivery Device Room air O2 Liters/Min 0.0 Imaging Data Attestation: I personally reviewed and interpreted this imaging study as follows: Radiologist's impression: Chest x-ray shows left lower lobe pneumonia/infiltrate CTA of the chest is negative for acute process and chronic changes seen ECG Data EKG #1: Attestation: I personally reviewed and interpreted this ECG as follows: ECG completion date: 08/06/25 ECG completion time: 15:16 EKG Interpretation: normal rate, sinus rhythm, no ectopy, non-specific ST changes, normal QRS, normal QT and right axis Discharge Plan Discharge Clinical Impression: Acute exacerbation of chronic obstructive pulmonary disease Pneumonia Qualifiers: Pneumonia type: due to unspecified organism Laterality: left Lung location: lower lobe of lung Qualified Code(s): J18.9 - Pneumonia, unspecified organism Cancer of liver Qualifiers: Liver malignancy type: unspecified liver malignancy Qualified Code(s): C22.9 - Malignant neoplasm of liver, not specified as primary or secondary Patient Disposition: Acute Care Hospital [facility] Condition: Stable Patient Language: [place] Prescriptions: No Action amlodipine 5 mg tablet 5 mg PO DAILY carvedilol 12.5 mg tablet 12.5 mg PO Q12H isosorbide mononitrate 120 mg tablet extended release 24 hr 120 mg PO DAILY omeprazole 40 mg capsule,delayed release(DR/EC) 40 mg PO DAILY albuterol sulfate [Ventolin HFA] 90 mcg/actuation HFA aerosol inhaler 2 inh inhalation QID PRN (Reason: shortness of breath or wheezing) Follow-up/Referrals: Sima,MD Krishna [Primary Care Provider, Family Practice] Time of Disposition: 17:28
--- NOTE | 2025-08-06 15:02 | ECG_ITS ---
Test Date: 2025-08-06 15:12:54 Measurements Intervals [place] Rate: 72 P: 79 MD: 153 QRS: 97 QRSD: 106 T: 33 QT: 358 QTc: 394 Interpretive Statements SINUS RHYTHM BORDERLINE RIGHT AXIS DEVIATION [QRS AXIS > 90] CANNOT RULE OUT INFERIOR MYOCARDIAL INFARCTION, AGE INDETERMINATE ABNORMAL ECG No previous ECG available for comparison Electronically Signed On 08-06-2025 17:23:55 PRODUCTION CLERK by Kyle Person M.D.
[2025-08-06] MEDS: HYDROcodone/acetaminophen (*CRX) 5-325 MG TABLET 1 TAB PO ×3 (15:26→20:44)
[2025-08-06 15:29] LABS: HCO3 ABG 24.4 mmol/L (23-29); Oxygen Saturation ABG 95.1 % (95-97); PCO2 ABG 38.2 mmHg (35-45); PO2 ABG 77.1 mmHg (75-85)
[2025-08-06] MEDS: IPRATROPIUM 0.5 MG/ALBUTEROL SULFATE 2.5 MG (BASE) AMPUL.NEB 3 ML INHALATION ×3 (15:32→20:45)
[2025-08-06 15:33] LABS: Hematocrit 36.5 % (37.0-46.0); Hemoglobin 12.4 g/dL (12.4-15.3); Immature Granulocyte Percent A 0.5 % (0.0-0.0); Immature Platelet Fraction Pct 2.1 % (1.0-7.0); Lymphocytes Absolute Auto 0.41 K/mm3 (1.10-4.50); Mean Corpuscular HGB Conc 34.0 g/dL (32-36); Mean Corpuscular Hemoglobin 31.2 pg (27.0-31.0); Mean Corpuscular Volume 91.7 fL (78.0-102.0); Nucleated Red Blood Cells Absolute Auto 0.00 K/mm3 (0.00-0.00); Nucleated Red Blood Cells Perc 0.0 % (0-0.0); Platelet Count Result 105 K/mm3 (150-420); Red Blood Count 3.98 M/mm3 (4.70-6.10); White Blood Count 8.8 K/mm3 (4.8-10.8)
[2025-08-06 15:34] LABS: Liters per Minute 0.0 LPM; Modified Allen's Test Pass; Site Drawn LEFT RADIAL
[2025-08-06] MEDS: BENZONATATE 100 MG CAPSULE 200 MG PO (15:44)
[2025-08-06 15:49] LABS: Alanine Aminotransferase 33 U/L (6-50); Albumin Level 3.9 g/dL (3.5-5.1); Alkaline Phosphatase 177 U/L (38-126); Anion Gap 9 mmol/L (4-12); Aspartate Amino Transferase 59 U/L (17-59); Bilirubin,Total 1.5 mg/dL (0.2-1.3); Blood Urea Nitrogen 6 mg/dL (9-20); Calcium 8.9 mg/dL (8.4-10.2); Carbon Dioxide 29 mmol/L (22-30); Chloride 96 mmol/L (98-107); Estimated CRCL calculation 71 ml/min; Estimated Glomerular Filt Rate > 60; Glucose 93 mg/dL (65-110); Osmolality Calculated 275 mOsm/kg (285-295); Potassium 4.2 mmol/L (3.4-5.0); Sodium 134 mmol/L (137-145); Total Protein 7.1 g/dL (6.3-8.2)
--- NOTE | 2025-08-06 16:00 | PC.NURSE ---
Ana Paula from lab got covid culture
[2025-08-06 16:01] LABS: NT Pro B Type Natriuretic Pept 61 pg/mL (19.9-100); Troponin I < 0.012 ng/mL (0.000-0.034)
[2025-08-06 16:18] LABS: Influenza A QL RT-PCR Negative (Negative); Influenza B QL RT-PCR Negative (Negative); RSV RNA, RT-PCR Negative (Negative); SARS-CoV-2 RNA PCR Negative (Negative)
[2025-08-06] MEDS: levoFLOXacin 750 MG/D5W 150 ML 750 MG/150 ML BAG 100 MG IVPB (17:24)
[2025-08-06] MEDS: PIPERACILLIN/TAZOBACTAM SOD 3.375 GM in SODIUM CHLORIDE 0.9% IV 50 ML 100 ML IVPB (17:42)
--- NOTE | 2025-08-06 18:39 | ADMGEN ---
This patient, Richard Wing, was admitted to 2nd Floor Room 211-1. Patient/family oriented to hospital policies and general routines including ID bracelet, bed and alarms, visiting hours, pain management, procedures, bathroom and other care routines, personal items, smoking policy, room service/diet, and visiting hours. Pt has glasses and phone on his person and wallet in the drawer. Information on how to activate the Rapid Response Team has been discussed. Patient/Family are encouraged to report perceived risks to care and to ask questions if they do not understand what they are told or what they should do.
[2025-08-06] MEDS: SODIUM CHLORIDE 0.9% IV 1,000 ML 100 ML IV CONT (20:49)
--- OUTSIDE RECORDS SUMMARY | 2025-08-06 22:48 | XMS_ITS | Encounter Summary ---
Author Organization [facility] Address [address] [place] [address] Care Team Providers Care Supervisor Jewelry Department Name Role Phone Natanael Temple MD Primary Care Provider [phone] Hector Rosenberg MD Unavailable [phone]- [phone] Caprice Rosales MD Unavailable Krishna Gao MD Primary Care Provider [phone] Encounter Details Date Type Department Care Team (Late st Contact Info) Description 02/02/2016 Abstract [facility] [address] [place] [phone] Nader Doshi MD Social History Tobacco Use Types Packs/Day Years Used Date Smoking Tobacco: Smoker, Current Status Unknown Cigarettes Alcohol Use Standard Drinks/Week Comments No 0 (1 standard drink = 0.6 oz pur e alcohol) Sex and Gender Information Value Date Recorded Sex Assigned at Male 11/07/2024 9:55 AM COURIER Legal Sex Male 2:01 AM CDT Gender Identity Not on file Sexual Orientation Not on file Occupation Industry Job Start Date Job End Date Disability Not on file Not on file Not on file documented as of this encounter Plan of Treatment Not on file documented as of this encounter Visit Diagnoses Not on filedocumented in this encounter Care Teams Supervisor Jewelry Department Relationship Specialty Start Date End Date Natanael Temple MD [address] [place] [phone] PCP - General FAMILY PRACTICE 10/20/16 06/26/24 Krishna Gao MD [address] [place] [phone] PCP - General FAMILY PRACTICE 06/27/24 Hector Rosenberg MD [address] [place] [phone] [place] Slip Seat Coverer CARDIOVASCULAR DISEASE 10/09/17 Caprice Rosales MD [address] [place] [phone] Consulting Physician INFECTIOUS DISEASE 04/03/19 documented as of this encounter
--- OUTSIDE RECORDS SUMMARY | 2025-08-06 22:48 | XMS_ITS | Encounter Summary ---
Author Organization [facility] Address [address] [place] [address] Care Team Providers Care Primer Boxer Name Role Phone Natanael Temple MD Primary Care Provider [phone] Hector Rosenberg MD Unavailable [phone]- [phone] Caprice Rosales MD Unavailable Krishna Gao MD Primary Care Provider [phone] Encounter Details Date Type Department Care Team (Late st Contact Info) Description 04/09/2018 Abstract [facility] [address] [place] [phone] Non-Staff, Provider Social History Tobacco Use Types Packs/Day Years Used Date Smoking Tobacco: Smoker, Current Status Unknown Cigarettes 0.5 56 Smokeless Tobacco: Never Alcohol Use Standard Drinks/Week Comments No 0 (1 standard drink = 0.6 oz pur e alcohol) Sex and Gender Information Value Date Recorded Sex Assigned at Male 11/07/2024 9:55 AM BOBBIN WINDER Legal Sex Male 2:01 AM CDT Gender [...] PLATELETS LEUKOCYTES REDUCED Routine 09/21/2017 3:43 PM BOBBIN WINDER CBC (OUTSIDE LAB) Routine 09/21/2017 documented in this encounter Results * CBC (OUTSIDE LAB) (09/21/2017) WBC 3.8 HGB 13.1 HCT 39.1 PLT 43 RBC 4.30 MCV 91 MCH 30.5 MCHC 33.5 RDW 15.3 09/21/2017 Provider Non-Staff LAB-OUTSIDE/ABSTRACTED Final Result documented in this encounter Visit Diagnoses Not on filedocumented in this encounter Care Teams Primer Boxer Relationship Specialty Start Date End Date Natanael Temple MD [address] [place], [place] [phone] PCP - General FAMILY PRACTICE 10/20/16 06/26/24 Krishna Gao MD [address] [place] [address] PCP - General FAMILY PRACTICE 06/27/24 Hector Rosenberg MD [address] [place], [place] [phone] [place] Reconcilement Clerk CARDIOVASCULAR DISEASE 10/09/17 Caprice Rosales MD [address] [place], [place] [phone] Consulting Physician INFECTIOUS DISEASE 04/03/19 documented as of this encounter
--- OUTSIDE RECORDS SUMMARY | 2025-08-06 22:48 | XMS_ITS | Clinical Summary ---
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 Family History Medical History Relation Comments Heart Attack Brother Stent Cardiac Brother Valve Disease Brother Heart Attack Father AL Father Stent Cardiac Mother Relation Status Comments [...] Sex Assigned at Male 11/07/2024 9:55 AM USER EXPERIENCE MANAGER Legal Sex Male 2:01 AM CDT [...] Most Recently Relevant to Health Maintenance [facility] Care Teams Saw Edge Fuser Circular Relationship Specialty Start Date End Date Krishna Gao MD [address] [place] [phone] PCP - General FAMILY PRACTICE 06/27/24 Hector Rosenberg MD [place] Numerical Control Programmer CARDIOVASCULAR DISEASE 10/09/17 Caprice Rosales MD Consulting Physician INFECTIOUS DISEASE 04/03/19
--- OUTSIDE RECORDS SUMMARY | 2025-08-06 22:48 | XMS_ITS | Encounter Summary ---
Author Organization [facility] Address [facility] [place] [address] Care Team Providers Care Advertising Sales Assistant Name Role Phone Natanael Temple MD Primary Care Provider [phone] Hector Rosenberg MD Unavailable [phone]- [phone] Caprice Rosales MD Unavailable Krishna Gao MD Primary Care Provider Encounter Details Date Type Department Care Team (Late st Contact Info) Description 02/23/2019 Abstract [facility] [address] [place] [address] , Generic MD Roselia Social History Tobacco Use Types Packs/Day Years Used Date Smoking Tobacco: Every Day Cigarettes 0.5 56 Smokeless Tobacco: Never Alcohol Use Standard Drinks/Week Comments No 0 (1 standard drink = 0.6 oz pur e alcohol) Sex and Gender Information Value Date Recorded Sex Assigned at Male 11/07/2024 9:55 AM EDUCATIONAL TECHNOLOGY SPECIALIST Legal Sex Male 2:01 AM CDT Gender Identity Not on file Sexual Orientation Not on file Occupation Industry Job Start Date Job End Date Disability Not on file Not on file Not on file documented as of this encounter Plan of Treatment Not on file documented as of this encounter Visit Diagnoses Not on filedocumented in this encounter Care Teams Advertising Sales Assistant Relationship Specialty Start Date End Date Natanael Temple MD [address] [place] [phone] PCP - General FAMILY PRACTICE 10/20/16 06/26/24 Krishna Gao MD [address] [place] [phone] PCP - General FAMILY PRACTICE 06/27/24 Hector Rosenberg MD [address] [place] [phone] [place] Beveler CARDIOVASCULAR DISEASE 10/09/17 Caprice Rosales MD [address] [place] [phone] Consulting Physician INFECTIOUS DISEASE 04/03/19 documented as of this encounter
--- OUTSIDE RECORDS SUMMARY | 2025-08-06 22:48 | XMS_ITS | Encounter Summary ---
Author Organization [facility] Address [address] [place] [address] Care Team Providers Care Timber Management Specialist Name Role Phone Natanael Temple MD Primary Care Provider [phone] Hector Rosenberg MD Unavailable [phone]- [phone] Caprice Rosales MD Unavailable Krishna Gao MD Primary Care Provider [phone] Encounter Details Date Type Department Care Team (Late st Contact Info) Description 12/02/2017 Abstract [facility] [address] [place] [address] , Generic MD Roselia Social History Tobacco Use Types Packs/Day Years Used Date Smoking Tobacco: Smoker, Current Status Unknown Cigarettes 0.5 56 Smokeless Tobacco: Never Alcohol Use Standard Drinks/Week Comments No 0 (1 standard drink = 0.6 oz pur e alcohol) Sex and Gender Information Value Date Recorded Sex Assigned at Male 11/07/2024 9:55 AM BYPRODUCTS PUMP OPERATOR Legal Sex Male 2:01 AM CDT Gender Identity Not on file Sexual Orientation Not on file Occupation Industry Job Start Date Job End Date Disability Not on file Not on file Not on file documented as of this encounter Plan of Treatment Not on file documented as of this encounter Visit Diagnoses Not on filedocumented in this encounter Care Teams Timber Management Specialist Relationship Specialty Start Date End Date Natanael Temple MD [address] [place] [phone] PCP - General FAMILY PRACTICE 10/20/16 06/26/24 Krishna Gao MD [address] [place] [phone] PCP - General FAMILY PRACTICE 06/27/24 Hector Rosenberg MD [address] [place] [phone] [place] Medical Office Coordinator CARDIOVASCULAR DISEASE 10/09/17 Caprice Rosales MD [address] [place] [phone] Consulting Physician INFECTIOUS DISEASE 04/03/19 documented as of this encounter
--- OUTSIDE RECORDS SUMMARY | 2025-08-06 22:48 | XMS_ITS | Encounter Summary ---
Author Organization [facility] Address [facility] [place] [address] Care Team Providers Care Feed Project Engineer Name Role Phone Natanael Temple MD Primary Care Provider [phone] Hector Rosenberg MD Unavailable [phone] Caprice Rosales MD Unavailable Krishna Gao MD Primary Care Provider [phone] Encounter Details Date Type Department Care Team (Late st Contact Info) Description 04/13/2018 Abstract [facility] [address] [place] [phone] Non-Staff, Provider Social History Tobacco Use Types Packs/Day Years Used Date Smoking Tobacco: Smoker, Current Status Unknown Cigarettes 0.5 56 Smokeless Tobacco: Never Alcohol Use Standard Drinks/Week Comments No 0 (1 standard drink = 0.6 oz pur e alcohol) Sex and Gender Information Value Date Recorded Sex Assigned at Male 11/07/2024 9:55 AM ELECTRICIAN'S ASSISTANT Legal Sex Male 2:01 AM CDT Gender [...] on filedocumented in this encounter Care Teams Feed Project Engineer Relationship Specialty Start Date End Date Natanael Temple MD [address] [place] [phone] PCP - General FAMILY PRACTICE 10/20/16 06/26/24 Krishna Gao MD [address] [place] [phone] PCP - General FAMILY PRACTICE 06/27/24 Hector Rosenberg MD [address] [place] [phone] [place] Commercial Roofing Estimator CARDIOVASCULAR DISEASE 10/09/17 Caprice Rosales MD [address] [place] [phone] Consulting Physician INFECTIOUS DISEASE 04/03/19 documented as of this encounter
--- OUTSIDE RECORDS SUMMARY | 2025-08-06 22:48 | XMS_ITS | Encounter Summary ---
Author Organization [facility] Address [address] [place] [address] Care Team Providers Care Licensed Occupational Therapy Assistant Name Role Phone Natanael Temple MD Primary Care Provider [phone] Hector Rosenberg MD Unavailable [phone] Caprice Rosales MD Unavailable Krishna Gao MD Primary Care Provider Encounter Details Date Type Department Care Team (Late st Contact Info) Description 03/15/2016 [facility] [address] [place] [phone] Nader Doshi MD Social History Tobacco Use Types Packs/Day Years Used Date Smoking Tobacco: Smoker, Current Status Unknown Sex and Gender Information Value Date Recorded Sex Assigned at Male 11/07/2024 9:55 AM SOLUTIONS ARCHITECT Legal Sex Male 2:01 AM CDT Gender [...] on filedocumented in this encounter Care Teams Licensed Occupational Therapy Assistant Relationship Specialty Start Date End Date Natanael Temple MD [address] [place] [phone] PCP - General FAMILY PRACTICE 10/20/16 06/26/24 Krishna Gao MD [address] [place] [phone] PCP - General FAMILY PRACTICE 06/27/24 Hector Rosenberg MD [address] [place] [phone] [place] [employer] Technician CARDIOVASCULAR DISEASE 10/09/17 Caprice Rosales MD [address] [place] [phone] Consulting Physician INFECTIOUS DISEASE 04/03/19 documented as of this encounter
--- OUTSIDE RECORDS SUMMARY | 2025-08-06 22:48 | XMS_ITS | Clinical Summary ---
Author Organization [facility] Address [address] [place] [address] Care Team Providers Care Automotive Engineering Teacher Name Role Phone Krishna Gao MD Primary Care Provider Chantell Michael MD Unavailable Henry Gr MD Unavailable [phone] Nick Leal MD Unavailable [phone] Allergies Active Allergy Reactions Criticality Noted Date [...] (09/03/2020): Added automatically from request for surgery [id number] Elevated d-dimer Abdominal aortic aneurysm (AAA) without [...] often do you attend chur ch or jewish services? Never 03/17/2023 Do you belong to any clubs o r organizations such as scientology groups, unions, fraternal or athletic groups, or [...] place to sleep or slept in a group home (including now)? No 03/17/2023 Personal Safety Answer Date Recorded Getting School Help Needed Not on file 03/23 Sex and Gender Information Value Date Recorded Sex Assigned at Not on file Legal Sex Male 9:35 AM TEMPERER Gender Identity Not on file Sexual Orientation [...] 3:00 AM CDT COLONOSCOPY 09/08/2020 7:47 AM TEMPERER from Last 3 Months or Most Recently [...] Jose Nelson M.D. KT: ABDIAS Report ID: [id number] Reading Location: [place] [address] Procedure Note Jose Nelson MD - 03/16/2023 [...] Jose Nelson M.D. KT: KT Report ID: [id number] Reading Location: [id number] Thiago Galloway MD IMG CT PROCEDURES Final Result * (ABNORMAL) Hepatitis panel, acute (01/20/2023 3:00 AM CDT) Hep A IgM Nonreactive Nonreactive [facility] (SANJUANITA) Comment: Interpretive Data: If Hep A IgM Ab is reported as Equivocal, a new sample should be drawn in two weeks for testing. Current interpretive data was last revised on 19. Testing performed by: [address] [address] Hep B core IgM Nonreactive Nonreactive [facility] (SANJUANITA) Comment: Interpretive Data If HepB Core IgM Ab is reported as Equivocal, a new sample should be drawn in two weeks for testing. Current interpretive data was last revised on 19. Testing performed by: [address] [address] Hep C Ab Reactive(A) Nonreactive [facility] [...] last revised on 2019. Testing performed by: [address] [address] HepBsAg Nonreactive Nonreactive [facility] (SANJUANITA) Comment:Testing performed by : [address] [address] Blood 01/20/2023 3:00 AM CDT 01/20/2023 9:09 AM CDT Holly MARQUEZ LAB MICROBIOLOGY - GENER AL ORDERABLES Final Result [facility] (SANJUANITA) 8 [facility] [place] [address] * COLONOSCOPY (09/08/2020 7:47 AM TEMPERER) Anatomical Region Laterality Modality Other Narrative Procedure Note Deirdre Ayala MD - 09/08/2020 7:47 AM CST [facility] Endoscopy Lab Patient Name: [...] pathology results. Procedure Code(s): --- Professional --- 57627, Colonoscopy, flexible; with removal oftumor(s), polyp(s), or other lesion(s) by snare technique 98682, 59, Colonoscopy, flexible; with removal of tumor(s), polyp(s), or other lesion(s) by hot biopsy forceps Diagnosis Code(s): --- Professional --- Z86.010, Personal history of colonic polyps D12.4, Benign neoplasm of descending colon D12.3, Benign neoplasm of transverse colon (hepatic flexure or splenic flexure) D12.5, Benign neoplasm of sigmoid colon K64.8, Other hemorrhoids CPT copyright 2017 [employer]. All rights reserved. The codes documented in this report are preliminary and upon rand maker reviewmay be revised to meet current compliance requirements. Electronically signed by Deirdre Ayala M.D. Deirdre Ayala M.D. 09/08/2020 8:47:29 AM Number of Addenda: 0 Note Initiated On: 09/08/2020 7:47 AM Deirdre Ayala MD ENDOSCOPY PROCEDURES Fi nal Result from Last 3 Months or Most Recently Relevant to Health Maintenance Insurance Advance Directives For more information, please contact: [phone] * Full Code (Latest Code Status on File) Date Activated Date Inactivated Comments 03/16/2023 8:04 PM 03/19/2023 2:43 PM * Full Code Date Activated Date Inactivated Comments 01/19/2023 8:48 AM 01/21/2023 3:59 PM Care Teams Automotive Engineering Teacher Relationship Specialty Start Date End Date Krishna Gao MD PCP - General Family Medicine 12/17/21 Chantell Michael MD [address] [place] [address] [address] [place] [address] Consulting Physician Gastroenterology 01/21/23 Henry Gr MD [address] [place] [address] [address] [place] [address] Consulting Physician Hematology and Oncology 02/22/23 Nick Leal MD [address] [place] [address] [address] [place] [address] Consulting Physician Gastroenterology 03/19/23
--- OUTSIDE RECORDS SUMMARY | 2025-08-06 23:48 | XMS_ITS | Encounter Summary ---
Author Organization [facility] Address [address] [place] [address] Care Team Providers Care Distillery Worker Name Role Phone Natanael Temple MD Primary Care Provider [phone] Hector Rosenberg MD Unavailable [phone] Caprice Rosales MD Unavailable Krishna Gao MD Primary Care Provider [phone] Encounter Details Date Type Department Care Team (Late st Contact Info) Description 03/15/2016 Abstract [facility] [address] [place] [phone] Nader Doshi MD Social History Tobacco Use Types Packs/Day Years Used Date Smoking Tobacco: Smoker, Current Status Unknown Sex and Gender Information Value Date Recorded Sex Assigned at Male 11/07/2024 9:55 AM MUSICAL THERAPIST Legal Sex Male 2:01 AM CDT Gender [...] on filedocumented in this encounter Care Teams Distillery Worker Relationship Specialty Start Date End Date Natanael Temple MD [address] [place] [phone] PCP - General FAMILY PRACTICE 10/20/16 06/26/24 Krishna Gao MD [address] [place] [phone] PCP - General FAMILY PRACTICE 06/27/24 Hector Rosenberg MD [address] [place] [phone] [place] Loan Secretary CARDIOVASCULAR DISEASE 10/09/17 Caprice Rosales MD [address] [place] [phone] Consulting Physician INFECTIOUS DISEASE 04/03/19 documented as of this encounter
--- OUTSIDE RECORDS SUMMARY | 2025-08-06 23:48 | XMS_ITS | Encounter Summary ---
Author Organization [facility] Address [facility] [place] [address] Care Team Providers Care Net C Developer Name Role Phone Natanael Temple MD Primary Care Provider [phone] Hector Rosenberg MD Unavailable [phone]- [phone] Caprice Rosales MD Unavailable Krishna Gao MD Primary Care Provider Encounter Details Date Type Department Care Team (Late st Contact Info) Description 02/23/2019 Abstract [facility] [address] [place] [address] , Generic MD Roselia Social History Tobacco Use Types Packs/Day Years Used Date Smoking Tobacco: Every Day Cigarettes 0.5 56 Smokeless Tobacco: Never Alcohol Use Standard Drinks/Week Comments No 0 (1 standard drink = 0.6 oz pur e alcohol) Sex and Gender Information Value Date Recorded Sex Assigned at Male 11/07/2024 9:55 AM SUPERVISOR HOSPITALITY HOUSE Legal Sex Male 2:01 AM CDT Gender Identity Not on file Sexual Orientation Not on file Occupation Industry Job Start Date Job End Date Disability Not on file Not on file Not on file documented as of this encounter Plan of Treatment Not on file documented as of this encounter Visit Diagnoses Not on filedocumented in this encounter Care Teams Net C Developer Relationship Specialty Start Date End Date Natanael Temple MD [address] [place] [phone] PCP - General FAMILY PRACTICE 10/20/16 06/26/24 Krishna Gao MD [address] [place] [phone] PCP - General FAMILY PRACTICE 06/27/24 Hector Rosenberg MD [address] [place] [phone] [place] Cooking Show Host CARDIOVASCULAR DISEASE 10/09/17 Caprice Rosales MD [address] [place] [phone] Consulting Physician INFECTIOUS DISEASE 04/03/19 documented as of this encounter
--- OUTSIDE RECORDS SUMMARY | 2025-08-06 23:48 | XMS_ITS | Encounter Summary ---
Author Organization [facility] Address [facility] [place] [address] Care Team Providers Care Bedspread Seamer Name Role Phone Natanael Temple MD Primary Care Provider [phone] Hector Rosenberg MD Unavailable [phone] Caprice Rosales MD Unavailable Krishna Gao MD Primary Care Provider [phone] Encounter Details Date Type Department Care Team (Late st Contact Info) Description 04/13/2018 Abstract [facility] [address] [place] [address] Non-Staff, Provider Social History Tobacco Use Types Packs/Day Years Used Date Smoking Tobacco: Smoker, Current Status Unknown Cigarettes 0.5 56 Smokeless Tobacco: Never Alcohol Use Standard Drinks/Week Comments No 0 (1 standard drink = 0.6 oz pur e alcohol) Sex and Gender Information Value Date Recorded Sex Assigned at Male 11/07/2024 9:55 AM FIELD UNDERWRITER Legal Sex Male 2:01 AM CDT Gender [...] on filedocumented in this encounter Care Teams Bedspread Seamer Relationship Specialty Start Date End Date Natanael Temple MD [address] [place] [phone] PCP - General FAMILY PRACTICE 10/20/16 06/26/24 Krishna Gao MD [address] [place] [phone] PCP - General FAMILY PRACTICE 06/27/24 Hector Rosenberg MD [address] [place] [phone] [employer] Rn Transplant CARDIOVASCULAR DISEASE 10/09/17 Caprice Rosales MD [address] [place] [phone] Consulting Physician INFECTIOUS DISEASE 04/03/19 documented as of this encounter
--- OUTSIDE RECORDS SUMMARY | 2025-08-06 23:48 | XMS_ITS | Encounter Summary ---
Author Organization [facility] Address [address] [place] [address] Care Team Providers Care Physical Education Teacher Name Role Phone Natanael Temple MD Primary Care Provider [phone] Hector Rosenberg MD Unavailable [phone]- [phone] Caprice Rosales MD Unavailable Krishna Gao MD Primary Care Provider [phone] Encounter Details Date Type Department Care Team (Late st Contact Info) Description 02/02/2016 Abstract [facility] [address] [place] [phone] Nader Doshi MD Social History Tobacco Use Types Packs/Day Years Used Date Smoking Tobacco: Smoker, Current Status Unknown Cigarettes Alcohol Use Standard Drinks/Week Comments No 0 (1 standard drink = 0.6 oz pur e alcohol) Sex and Gender Information Value Date Recorded Sex Assigned at Male 11/07/2024 9:55 AM REFRIGERATED COMPANY DRIVER Legal Sex Male 2:01 AM CDT Gender Identity Not on file Sexual Orientation Not on file Occupation Industry Job Start Date Job End Date Disability Not on file Not on file Not on file documented as of this encounter Plan of Treatment Not on file documented as of this encounter Visit Diagnoses Not on filedocumented in this encounter Care Teams Physical Education Teacher Relationship Specialty Start Date End Date Natanael Temple MD [address] [place] [phone] PCP - General FAMILY PRACTICE 10/20/16 06/26/24 Krishna Gao MD [address] [place] [phone] PCP - General FAMILY PRACTICE 06/27/24 Hector Rosenberg MD [address] [place] [phone] [place] Lead C Developer CARDIOVASCULAR DISEASE 10/09/17 Caprice Rosales MD [address] [place] [phone] Consulting Physician INFECTIOUS DISEASE 04/03/19 documented as of this encounter
--- OUTSIDE RECORDS SUMMARY | 2025-08-06 23:48 | XMS_ITS | Clinical Summary ---
Author Organization [facility] Address [address] [place] [address] Phone Care Team Providers Care Aluminum Boats Assembler Name Role Phone Inocente Beltran APRN, JANI [...] Comments Blood Pressure 116/68 09/01/2022 9:19 AM HEMATOLOGY SUPERVISOR Pulse 75 09/01/2022 9:19 AM HEMATOLOGY SUPERVISOR Temperature 36.3 C (97.4 F) 08/20/2019 4:44 PM HEMATOLOGY SUPERVISOR Respiratory Rate 17 08/20/2019 5:20 PM HEMATOLOGY SUPERVISOR Oxygen Saturation 98% 08/20/2019 5:20 PM HEMATOLOGY SUPERVISOR Inhaled Oxygen Concentration - - Weight 63.5 kg (140 lb) 09/01/2022 9:03 AM HEMATOLOGY SUPERVISOR Height 170.2 cm (5' 7) 09/01/2022 9:03 AM HEMATOLOGY SUPERVISOR Body Mass Index 21.93 09/01/2022 9:03 AM HEMATOLOGY SUPERVISOR Plan of Treatment Health Maintenance Due Date Last Done Comments Varicella Immunization (1 of 2 - 13+ 2-dose series) 1970 Cologuard 2002 Colonoscopy 2002 Colorectal Cancer Screening 2002 Immunochemical Fecal Occult Blood 2002 Pneumococcal Immunization (50+ years) (1 of 1 - PCV) 2007 Zoster Immunization (1 of 2) 2007 Influenza Immunization (#1) 05/19/202506/18, 07/17/2018, 05/24/2017, Additional history exists SARS-COV-2 Immunization ( season) 2025 05/03/2021, 04/12/2021 Respiratory Syncytial Virus [...] age to complete this topic Insurance MEDICAID [facility] Care Teams Aluminum Boats Assembler Relationship Specialty Start Date End Date Inocente Beltran APRN, CATALOGUE LIBRARIAN [address] [address] PCP - General Advanced Practice Nurse 06/21/22
--- OUTSIDE RECORDS SUMMARY | 2025-08-06 23:48 | XMS_ITS | Clinical Summary ---
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 Care Teams [place] Feather Trimmer Relationship Specialty Start Date End Date Krishna Gao MD [address] [place] [phone] PCP - General FAMILY PRACTICE 06/27/24 Hector Rosenberg MD [place] Market Research Executive CARDIOVASCULAR DISEASE 10/09/17 Caprice Rosales MD Consulting Physician INFECTIOUS DISEASE 04/03/19
--- OUTSIDE RECORDS SUMMARY | 2025-08-06 23:48 | XMS_ITS | Encounter Summary ---
Author Organization [facility] Address [address] [place] [address] Care Team Providers Care Schedule Maker Name Role Phone Natanael Temple MD Primary Care Provider [phone] Hector Rosenberg MD Unavailable [phone]- [phone] Caprice Rosales MD Unavailable Krishna Gao MD Primary Care Provider [phone] Encounter Details Date Type Department Care Team (Late st Contact Info) Description 12/02/2017 Abstract [facility] [address] [place] [address] , Generic MD Roselia Social History Tobacco Use Types Packs/Day Years Used Date Smoking Tobacco: Smoker, Current Status Unknown Cigarettes 0.5 56 Smokeless Tobacco: Never Alcohol Use Standard Drinks/Week Comments No 0 (1 standard drink = 0.6 oz pur e alcohol) Sex and Gender Information Value Date Recorded Sex Assigned at Male 11/07/2024 9:55 AM HEALTH AND WELLNESS COORDINATOR Legal Sex Male 2:01 AM CDT Gender Identity Not on file Sexual Orientation Not on file Occupation Industry Job Start Date Job End Date Disability Not on file Not on file Not on file documented as of this encounter Plan of Treatment Not on file documented as of this encounter Visit Diagnoses Not on filedocumented in this encounter Care Teams Schedule Maker Relationship Specialty Start Date End Date Natanael Temple MD [address] [place] [phone] PCP - General FAMILY PRACTICE 10/20/16 06/26/24 Krishna Gao MD [address] [place] [phone] PCP - General FAMILY PRACTICE 06/27/24 Hector Rosenberg MD [address] [place] [phone] [place] Lead Maintenance Technician CARDIOVASCULAR DISEASE 10/09/17 Caprice Rosales MD [address] [place] [phone] Consulting Physician INFECTIOUS DISEASE 04/03/19 documented as of this encounter
--- OUTSIDE RECORDS SUMMARY | 2025-08-06 23:48 | XMS_ITS | Encounter Summary ---
Author Organization [facility] Address [address] [place] [address] Care Team Providers Care Email Marketing Coordinator Name Role Phone Natanael Temple MD Primary Care Provider [phone] Hector Rosenberg MD Unavailable [phone]- [phone] Caprice Rosales MD Unavailable Krishna Gao MD Primary Care Provider [phone] Encounter Details Date Type Department Care Team (Late st Contact Info) Description 04/09/2018 Abstract [facility] [address] [place] [phone] Non-Staff, Provider Social History Tobacco Use Types Packs/Day Years Used Date Smoking Tobacco: Smoker, Current Status Unknown Cigarettes 0.5 56 Smokeless Tobacco: Never Alcohol Use Standard Drinks/Week Comments No 0 (1 standard drink = 0.6 oz pur e alcohol) Sex and Gender Information Value Date Recorded Sex Assigned at Male 11/07/2024 9:55 AM BUSINESS PROCESS LEAD Legal Sex Male 2:01 AM CDT Gender [...] PLATELETS LEUKOCYTES REDUCED Routine 09/21/2017 3:43 PM BUSINESS PROCESS LEAD CBC (OUTSIDE LAB) Routine 09/21/2017 documented in this encounter Results * CBC (OUTSIDE LAB) (09/21/2017) WBC 3.8 HGB 13.1 HCT 39.1 PLT 43 RBC 4.30 MCV 91 MCH 30.5 MCHC 33.5 RDW 15.3 09/21/2017 Provider Non-Staff LAB-OUTSIDE/ABSTRACTED Final Result documented in this encounter Visit Diagnoses Not on filedocumented in this encounter Care Teams Email Marketing Coordinator Relationship Specialty Start Date End Date Natanael Temple MD [address] [place], [place] [phone] PCP - General FAMILY PRACTICE 10/20/16 06/26/24 Krishna Gao MD [address] [place] [address] PCP - General FAMILY PRACTICE 06/27/24 Hector Rosenberg MD [address] [place], [place] [address] [place] Costume Specialist CARDIOVASCULAR DISEASE 10/09/17 Caprice Rosales MD [address] [place], [place] [address] Consulting Physician INFECTIOUS DISEASE 04/03/19 documented as of this encounter
[2025-08-07] VITALS (13 sets, daily range): BP systolic 105–117; BP diastolic 62–83; PULSE 64–90; RESP 16–18; TEMP 36.3–36.7; O2SAT 93–100
[2025-08-07] MEDS: PIPERACILLIN/TAZOBACTAM SOD 3.375 GM in SODIUM CHLORIDE 0.9% IV 50 ML 100 ML IVPB ×2 (00:14→06:13)
[2025-08-07] MEDS: IPRATROPIUM 0.5 MG/ALBUTEROL SULFATE 2.5 MG (BASE) AMPUL.NEB 3 ML INHALATION ×4 (00:14→18:02)
[2025-08-07] MEDS: HYDROcodone/acetaminophen (*CRX) 5-325 MG TABLET 1 TAB PO ×4 (03:04→21:37)
[2025-08-07 05:27] LABS: Hematocrit 31.2 % (37.0-46.0); Hemoglobin 10.9 g/dL (12.4-15.3); Mean Corpuscular HGB Conc 34.9 g/dL (32-36); Mean Corpuscular Hemoglobin 31.7 pg (27.0-31.0); Mean Corpuscular Volume 90.7 fL (78.0-102.0); Platelet Count Result 66 K/mm3 (150-420); Red Blood Count 3.44 M/mm3 (4.70-6.10); White Blood Count 3.8 K/mm3 (4.8-10.8)
[2025-08-07 05:44] LABS: Alanine Aminotransferase 29 U/L (6-50); Albumin Level 3.2 g/dL (3.5-5.1); Alkaline Phosphatase 152 U/L (38-126); Anion Gap 6 mmol/L (4-12); Aspartate Amino Transferase 34 U/L (17-59); Bilirubin,Total 0.9 mg/dL (0.2-1.3); Blood Urea Nitrogen 6 mg/dL (9-20); Calcium 8.5 mg/dL (8.4-10.2); Carbon Dioxide 26 mmol/L (22-30); Chloride 100 mmol/L (98-107); Estimated CRCL calculation 74 ml/min; Estimated Glomerular Filt Rate > 60; Glucose 146 mg/dL (65-110); Osmolality Calculated 274 mOsm/kg (285-295); Potassium 4.2 mmol/L (3.4-5.0); Sodium 132 mmol/L (137-145); Total Protein 6.0 g/dL (6.3-8.2)
[2025-08-07 06:07] LABS: Immature Platelet Fraction Pct 1.9 % (1.0-7.0)
[2025-08-07 06:08] LABS: Band Neutrophils Percent 0 % (0-6); Lymphocytes Absolute Manual 0.15 K/mm3 (1.1-4.5); Lymphocytes Percent Manual 4 % (18-44); Monocytes Absolute Manual 0.03 K/mm3 (0.1-0.90); Monocytes Percent Manual 1 % (3-9); Neutrophils Absolute Manual 3.61 K/mm3 (1.3-6.7); Neutrophils Percent Manual 95 % (46-73); Total Cells Counted 100
[2025-08-07 06:09] LABS: Hypochromasia 1+; Schistocytes None Seen
[2025-08-07 06:10] LABS: Anisocytosis 2+; Poikilocytosis 1+
[2025-08-07] MEDS: SODIUM CHLORIDE 0.9% IV 1,000 ML 100 ML IV CONT (08:00)
[2025-08-07] MEDS: ENOXAPARIN 40 MG/0.4 ML SYRINGE SUB-Q (09:15)
[2025-08-07] MEDS: BUDESONIDE RESPULE NEB 0.5 MG/2 ML AMP INHALATION ×2 (10:36→18:01)
[2025-08-07 10:56] LABS: Magnesium 1.9 mg/dL (1.6-2.3)
[2025-08-07] MEDS: guaiFENesin 12 HR 600 MG TABCR 1200 MG PO ×2 (11:02→21:37)
[2025-08-07] MEDS: LORATADINE 10 MG TABLET PO (11:02)
[2025-08-07] MEDS: ISOSORBIDE MONONITRATE 60 MG TAB.ER.24H 120 MG PO (11:02)
[2025-08-07] MEDS: AZITHROMYCIN 250 MG TABLET 500 MG PO (11:02)
[2025-08-07] MEDS: PANTOPRAZOLE 40 MG TABLET PO (11:03)
[2025-08-07] MEDS: cefTRIAXone 1 GM in SODIUM CHLORIDE 0.9% IV 50 ML 100 ML IVPB (11:04)
[2025-08-07] MEDS: BENZOCAINE/MENTHOL (*BKC) LOZENGE 1 LOZENGE PO ×4 (11:05→20:45)
--- NOTE | 2025-08-07 11:35 | P.HP_ITS ---
H&P: HPI History of Present Illness Date/Time: 08/07/25 11:35 Chief Complaint: SOB/Cough Narrative: Patient is a 62-year-old male with a past medical history of COPD, HTN, CAD, good, and current treatment for liver cancer who presented to the emergency department with worsening shortness a breath and progressive nonproductive cough for the last 3 weeks with no relief from OTC medication. Patient had r ecently been started on chemotherapy at which time he did blood cultures drawn from his support as well as an outpatient chest x-ray and labs. patient presented to our ER with worsening shortness a breath had been prescribed Tessalon Perles for cough what was unable to afford them and reports his inhaler had ran out as well. In the ED: labs fairly unremarkable, RSV/ COVID/influenza negative however CXR did show possible early development of left lower lobe pneumonia follow-up CTA with no PE but did show emphysema. Patient was given IV Zosyn, IV methylprednisone and nebulizer treatment in the ED 08/07/2025: Patient seen and assessed following day still with significant nonproductive cough, tachypnea and sore throat overall soreness from coughing. after evaluation of patient's previous blood cultures on 07/30/2025 patient's anaerobic bottle came back positive for Staphylococcus epidermidis from his port site. I did speak with patient's oncologist Dr Pagan regarding findings. I have repeated blood cultures at this time as discussed we will monitor F/U cultures to determine if this was a a contamination or concern for port site infection continued to be in contact with patient's oncologist regarding these findings. Review of Systems Review of Systems: All systems reviewed & are unremarkable except as noted in HPI and below PMFSH Past Medical History Medical History (Updated 08/07/25 @ 12:04 by Vi Santa APRN) Thrombocytopenia Hypertension CAD (coronary artery disease) Cancer of liver Acute exacerbation of chronic obstructive pulmonary disease Patient denies medical problems Social History Social History Smoking packs per day: 0.5 Smoking cigarettes per day: 10.0 Years smoked: 54 Smoking pack-years: 27.00 Smoking status: Current some day smoker Tobacco type: cigarettes Second hand tobacco smoke exposure: Yes Meds Home Medications and Allergies Home Medications ?Medication ?Instructions ?Recorded ?Confirmed ?Type albuterol sulfate 90 mcg/actuation 2 inh inhalation QI D PRN shortness 07/30/25 08/06/25 History aerosol inhaler (Ventolin HFA) of breath or wheezing amlodipine 5 mg tablet 5 mg PO DAILY 07/30/2508/06 History carvedilol 12.5 mg tablet 12.5 mg PO Q12H 07/30/25 History isosorbide mononitrate 120 mg 120 mg PO DAILY 07/30/25 08/06/25 History tablet,extended release 24 hr omeprazole 40 mg capsule,delayed 40 mg PO DAILY 08/06/25 History release Allergies Allergy/AdvReac Type Severity Reaction Status Date / Time codeine Allergy Intermediate Chest Pain Verified 08/06/25 18:18 diphenhydramine (From AdvReac Mild Jittery Verified 08/06/25 18:18 Benadryl) Vital Signs Vital Signs - 24 hr 08/06/25 14:49 08/06/25 14:59 08/06/25 15:36 Temperature 97.6 F Pulse Rate 77 74 Respiratory Rate 20 16 Blood Pressure 133/74 Pulse Oximetry 98 98 97 Oxygen Delivery Room Air Room Air Oxygen Flow Rate 0 08/06/25 15:38 08/06/25 15:45 08/06/25 17:17 Temperature Pulse Rate 76 88 76 Respiratory Rate 16 20 16 Blood Pressure 139/69 Pulse Oximetry 100 96 92 Oxygen Delivery Room Air Oxygen Flow Rate 0 0 08/06/25 17:23 08/06/25 18:55 08/06/25 20:00 Temperature 97.9 F Pulse Rate 68 60 62 Respiratory Rate 16 18 Blood Pressure 113/85 Pulse Oximetry 98 94 Oxygen Delivery Room Air Oxygen Flow Rate 0 08/06/25 20:45 08/06/25 21:00 08/07/25 00:00 Temperature 97.7 F Pulse Rate 64 Respiratory Rate 18 Blood Pressure 105/83 Pulse Oximetry 95 100 99 Oxygen Delivery Room Air Oxygen Flow Rate 08/07/25 00:00 08/07/25 00:20 08/07/25 04:00 Temperature Pulse Rate 67 87 Respiratory Rate Blood Pressure Pulse Oximetry 96 Oxygen Delivery Oxygen Flow Rate 08/07/25 05:57 08/07/25 06:14 08/07/25 08:00 Temperature Pulse Rate 87 86 71 Respiratory Rate 16 16 Blood Pressure Pulse Oximetry 94 96 Oxygen Delivery Oxygen Flow Rate 08/07/25 08:00 08/07/25 10:41 08/07/25 10:53 Temperature 97.3 F L Pulse Rate 72 89 81 Respiratory Rate 18 16 16 Blood Pressure 106/62 Pulse Oximetry 93 95 100 Oxygen Delivery Room Air Oxygen Flow Rate 0 0 08/07/25 11:02 Temperature Pulse Rate 72 Respiratory Rate Blood Pressure Pulse Oximetry Oxygen Delivery Oxygen Flow Rate Exam Const: General: no acute distress Other: Pleasant male with persists salt significant nonproductive cough HENMT: Mouth: Yes dry mucous membranes Eyes: General: appearance normal, both eyes and all related structures Sclera: sclerae normal Pupils: Equal, round and reactive pupils present Neck: Neck: supple Resp: Auscultation: rhonchi and wheezes Other: significant Non-productive cough, tachypnea Cardio: Rate: regular rate Rhythm: regular rhythm Other: CHEST: Right port GI: GI Palp: Yes Soft to palpation Auscultation: normal bowel sounds Skin: General skin exam: normal color and no rashes or lesions noted Wounds: no wounds Neuro: General: gait normal Speech: normal speech Motor exam (neuro): 5/ 5 motor strength present throughout Sensory Exam: normal sensation Extrem: General: normal to inspection Psych: Mental Status: mental status grossly normal Affect: normal affect H&P: Results Labs Labs: Short CBC 08/06/25 08/07/25 Range/Units 15:14 05:12 WBC 8.8 3.8 L (4.8-10.8) K/mm3 Hgb 12.4 10.9 L (12.4-15.3) g/dL Hct 36.5 L 31.2 L (37.0-46.0) % Plt Count 105 L 66 L (150-420) K/mm3 BMP 08/06/25 08/07/25 15:14 05:12 Sodium 134 L 132 L Potassium 4.2 4.2 Chloride 96 L 100 Carbon Dioxide 29 26 BUN 6 L 6 L Creatinine 0.76 0.66 L Glucose 93 146 H Calcium 8.9 8.5 Cardiac Enzymes 08/06/25 Range/Units 15:14 Troponin I < 0.012 (0.000-0.034) ng/mL Liver Function 08/06/25 08/07/25 Range/Units 15:14 05:12 Total Bilirubin 1.5 H 0.9 (0.2-1.3) mg/dL AST 59 34 (17-59) U/L ALT 33 29 (6-50) U/L Alkaline Phosphatase 177 H 152 H (38-126) U/L Albumin 3.9 3.2 L (3.5-5.1) g/dL Imaging Chest x-ray: Radiologist's impression: EXAMINATION: XR chest 1V portable DATE: 08/06/2025 15:44 INDICATION: Shortness of breath TECHNIQUE: A single frontal view of the chest was obtained. COMPARISON: July 30, 2025 FINDINGS: Patchy parenchymal markings in the left lung base suspicious for early developing infiltrate and/or aspiration. Remaining lung roy are clear. 5 mm nodule in the right lower lobe described on previous exam not as clearly seen on this exam. Heart shadow normal in size. Bones and upper abdomen unremarkable. Right internal jugular Mediport central catheter stable in position. IMPRESSION: 1. Early developing consolidative process in the left lower lobe. 2. 5 mm right base nodule not as clearly seen. See also report for chest x-ray dated July 30 recommended routine follow-up chest CT. CT scan - chest: Radiologist's impression: EXAMINATION: CTA chest PE protocol DATE: 08/06/2025 16:57 INDICATION: 70-year-old male with elevated d-dimer. History of cancer. TECHNIQUE: Computed tomography angiography (CTA) of the chest was performed with 100 mL Omnipaque-350 intravenous contrast timed to evaluate the pulmonary arteries. Coronal maximum intensity projection 3D-reconstructions were created by the technologist. Automated exposure control and iterative reconstruction technique were employed. The dose-length product was 180.20 mGy-cm. COMPARISON: Chest x-ray dated 08/06/2025. CT chest abdomen and pelvis dated 04/02/2025. FINDINGS: Emphysematous lungs. No acute pulmonary lesions. No evidence of pulmonary emboli. Atherosclerotic changes of the thoracic aorta. No evidence of dissection. Poorly defined masses of the liver and calcified gallstones are noted below the diaphragm in the partially visualized upper abdomen structures. IMPRESSION: 1. No evidence of pulmonary emboli. 2. Thoracic aorta shows significant atherosclerotic changes. No evidence of dissection. Emphysematous lungs. Assessment and Plan Assessment and plan (1) Acute exacerbation of chronic obstructive pulmonary disease: Code(s): J44.1 - Chronic obstructive pulmonary disease with (acute) exacerbation Status: Acute Assessment and Plan: CTA showing emphysema no PE chest x-ray showing possible left lower lobe pneumonia * Bronchodilators Q6hr * Pulmicort * incentive spirometry while awake. * steroids initiated 40mg daily * guaifenesin * azithromycin 500 daily/ IV ceftriaxone * MRSA negative * supplemental oxygen therapy to maintain oxygen 92% * Pep Therapy * Tessalon Perles for cough * added a antihistamine * encouraged smoking cessation/ nicotine patch p.r.n. (2) Pneumonia: Qualifiers: Laterality: left Lung location: lower lobe of lung Pneumonia type: due to unspecified organism Qualified Code(s): J18.9 - Pneumonia, unspecified organism Code(s): J18.9 - Pneumonia, unspecified organism Status: Acute Assessment and Plan: CXR LLL * SEE ABOVE #1 * monitor blood cultures (3) Positive blood culture: Code(s): R78.81 - Bacteremia Status: Acute Assessment and Plan: Positive anaerobic bottle on 07/30/2025 from patient's new port site Staphylococcus epidermidis from his port site. I did speak with patient's oncologist Dr Pagan regarding findings. I have repeated blood cultures at this time as discussed we will monitor F/U cultures to determine if this was a a contamination or concern for port site infection continued to be in contact with patient's oncologist regarding these findings. on evaluation no signs of infection * continue to monitor follow up cultures * will start antibiotic treatment if follow-up cultures come back positive * if cultures do come back positive patient may require removal of port (4) Cancer of liver: Qualifiers: Liver malignancy type: unspecified liver malignancy Qualified Code(s): C22.9 - Malignant neoplasm of liver, not specified as primary or secondary Code(s): C22.9 - Malignant neoplasm of liver, not specified as primary or secondary Status: Acute Assessment and Plan: Started treatment last week * monitor labs and port site * F/U outpatient with oncologist (5) CAD (coronary artery disease): Code(s): I25.10 - Atherosclerotic heart disease of [place] coronary artery without angina pectoris Status: Acute Assessment and Plan: * continued atorvastatin (6) Hypertension: Code(s): I10 - Essential (primary) hypertension Status: Acute Assessment and Plan: * continue amlodipine and carvedilol * monitor BP per unit protocol (7) Thrombocytopenia: Code(s): D69.6 - Thrombocytopenia, unspecified Status: Acute Assessment and Plan: PLT he is 68 secondary to patient's liver cancer * trend labs * monitor for bleeding Plan Code status: Full code per patient DVT prophylaxis: SCD Stress ulcer prophylaxis: Protonix 40 daily PT/OT notes: Ambulatory Disposition: Patient continues admission to the medical unit for continued treatment of COPD exacerbation and pneumonia with significant worsening nonproductive cough. will continue current treatment and monitor cultures. patient plans to return home at discharge when medically stable. Quality VTE Prophylaxis VTE prophylaxis: mechanical ordered -Patient's previous records reviewed on admission -ER notes reviewed in detail on admission -discussed all findings and current treatment plan with patient/Family/POA -Consultations reviewed for recommendations -Patient's disposition for safe discharge discussed with embedded case manager -radiology imaging, EKG and test results I have personally reviewed and interpreted unless otherwise specified Dictation performed by [employer] direct speech recognition software, therefore chisel grinder variants and typographical errors may occur. Hospitalist MIPS Advance Care Plan I have confirmed that the patient's Advanced Care Plan is present, code status is documented, or surrogate decision maker is listed in patient medical record.: Yes Medication Reconciliation I have utilized all available resources to obtain, update and review the patients current medications (includes all prescriptions, OTC, herbals, cannabis, and nutritional supplements).: Yes The patient is not eligible for med reconciliation; the patient is in a emergent medical situation where delaying treatment would jeopardize the patients health.: No
[2025-08-07 12:31] LABS: MRSA (PCR) NOT DETECTED (NOT DETECTE)
[2025-08-07] MEDS: BACLOFEN 10 MG TABLET PO (21:37)
[2025-08-08] VITALS (16 sets, daily range): BP systolic 112–122; BP diastolic 67–85; PULSE 67–86; RESP 16–20; TEMP 36.3–36.8; O2SAT 93–99
[2025-08-08] MEDS: IPRATROPIUM 0.5 MG/ALBUTEROL SULFATE 2.5 MG (BASE) AMPUL.NEB 3 ML INHALATION ×4 (00:01→16:50)
[2025-08-08] MEDS: BENZOCAINE/MENTHOL (*BKC) LOZENGE 1 LOZENGE PO ×6 (00:02→18:00)
[2025-08-08 05:54] LABS: Hematocrit 32.9 % (37.0-46.0); Hemoglobin 11.2 g/dL (12.4-15.3); Immature Platelet Fraction Pct 1.8 % (1.0-7.0); Mean Corpuscular HGB Conc 34.0 g/dL (32-36); Mean Corpuscular Hemoglobin 31.4 pg (27.0-31.0); Mean Corpuscular Volume 92.2 fL (78.0-102.0); Platelet Count Result 86 K/mm3 (150-420); Red Blood Count 3.57 M/mm3 (4.70-6.10); White Blood Count 11.1 K/mm3 (4.8-10.8)
[2025-08-08] MEDS: BUDESONIDE RESPULE NEB 0.5 MG/2 ML AMP INHALATION ×2 (06:00→16:50)
[2025-08-08 06:02] LABS: Alanine Aminotransferase 26 U/L (6-50); Albumin Level 3.4 g/dL (3.5-5.1); Alkaline Phosphatase 134 U/L (38-126); Anion Gap 7 mmol/L (4-12); Aspartate Amino Transferase 24 U/L (17-59); Bilirubin,Total 0.5 mg/dL (0.2-1.3); Blood Urea Nitrogen 12 mg/dL (9-20); Calcium 8.8 mg/dL (8.4-10.2); Carbon Dioxide 26 mmol/L (22-30); Chloride 105 mmol/L (98-107); Estimated CRCL calculation 72 ml/min; Estimated Glomerular Filt Rate > 60; Glucose 121 mg/dL (65-110); Magnesium 2.2 mg/dL (1.6-2.3); Osmolality Calculated 286 mOsm/kg (285-295); Potassium 4.1 mmol/L (3.4-5.0); Sodium 138 mmol/L (137-145); Total Protein 6.3 g/dL (6.3-8.2)
[2025-08-08] MEDS: AZITHROMYCIN 250 MG TABLET 500 MG PO (08:30)
[2025-08-08] MEDS: LORATADINE 10 MG TABLET PO (08:31)
[2025-08-08] MEDS: ISOSORBIDE MONONITRATE 60 MG TAB.ER.24H 120 MG PO (08:31)
[2025-08-08] MEDS: HYDROcodone/acetaminophen (*CRX) 5-325 MG TABLET 1 TAB PO ×2 (08:32→19:28)
[2025-08-08] MEDS: guaiFENesin 12 HR 600 MG TABCR 1200 MG PO ×2 (08:32→20:20)
[2025-08-08] MEDS: PANTOPRAZOLE 40 MG TABLET PO (08:32)
[2025-08-08] MEDS: cefTRIAXone 1 GM in SODIUM CHLORIDE 0.9% IV 50 ML 100 ML IVPB (11:14)
--- NOTE | 2025-08-08 14:52 | P.PNIM_ITS ---
Progress Note: A&P Assessment and Plan (1) Acute exacerbation of chronic obstructive pulmonary disease: Code(s): J44.1 - Chronic obstructive pulmonary disease with (acute) exacerbation Status: Acute Assessment and Plan: CTA showing emphysema no PE chest x-ray showing possible left lower lobe pneumonia * Bronchodilators Q6hr * Pulmicort * incentive spirometry while awake. * steroids initiated 40mg daily * guaifenesin * azithromycin 500 daily/ IV ceftriaxone * MRSA negative * supplemental oxygen therapy to maintain oxygen 92% * Pep Therapy * Tessalon Perles for cough * added a antihistamine * encouraged smoking cessation/ nicotine patch p.r.n. (2) Pneumonia: Qualifiers: Laterality: left Lung location: lower lobe of lung Pneumonia type: due to unspecified organism Qualified Code(s): J18.9 - Pneumonia, unspecified org [facility] Code(s): J18.9 - Pneumonia, unspecified organism Status: Acute Assessment and Plan: CXR LLL * SEE ABOVE #1 * monitor blood cultures NGTD (3) Positive blood culture: Code(s): R78.81 - Bacteremia Status: Acute Assessment and Plan: Positive anaerobic bottle on 07/30/2025 from patient's new port site Staphylococcus epidermidis from his port site. I did speak with patient's oncologist Dr Pagan regarding findings. I have repeated blood cultures at this time as discussed we will monitor F/U cultures to determine if this was a a contamination or concern for port site infection continued to be in contact with patient's oncologist regarding these findings. on evaluation no signs of infection * continue to monitor follow up cultures * will start antibiotic treatment if follow-up cultures come back positive * if cultures do come back positive patient may require removal of port (4) Cancer of liver: Qualifiers: Liver malignancy type: unspecified liver malignancy Qualified Code(s): C22.9 - Malignant neoplasm of liver, not specified as primary or secondary Code(s): C22.9 - Malignant neoplasm of liver, not specified as primary or secondary Status: Acute Assessment and Plan: Started treatment last week * monitor labs and port site * F/U outpatient with oncologist (5) CAD (coronary artery disease): Code(s): I25.10 - Atherosclerotic heart disease of [place] coronary artery without angina pectoris Status: Acute Assessment and Plan: * continued atorvastatin (6) Hypertension: Code(s): I10 - Essential (primary) hypertension Status: Acute Assessment and Plan: * continue amlodipine and carvedilol * monitor BP per unit protocol (7) Thrombocytopenia: Code(s): D69.6 - Thrombocytopenia, unspecified Status: Acute Assessment and Plan: PLT he is 68 secondary to patient's liver cancer * trend labs * monitor for bleeding Plan Code status: Full code per patient DVT prophylaxis: SCD Stress ulcer prophylaxis: Protonix 40 daily PT/OT notes: Ambulatory Disposition: Patient continues admission to the medical unit for continued treatment of COPD exacerbation and pneumonia with significant worsening nonproductive cough. will continue current treatment and monitor cultures. patient plans to return home at discharge when medically stable. Time Spent With Patient Time with patient: 15 - 25 minutes Subjective Date/time seen: 08/08/25 14:52 Interval history: Patient is 62-year-old male admitted for COPD exacerbation and right lower lobe pneumonia. 08/08/2025: Patient reported day his cough improved and he was to get some rest overnight still productive continues to have sore throat. Patient denies any chest pain nausea vomiting or abdominal. Mild chills overnight but no fevers. Review of Systems Review of Systems: All systems reviewed & are unremarkable except as noted in HPI and below Exam Const: General: no acute distress Other: Pleasant male with persists salt significant nonproductive cough HENMT: Mouth: Yes dry mucous membranes Eyes: General: appearance normal, both eyes and all related structures Sclera: sclerae normal Pupils: Equal, round and reactive pupils present Neck: Neck: supple Resp: Auscultation: rhonchi and wheezes Other: significant Non-productive cough, tachypnea improving Cardio: Rate: regular rate Rhythm: regular rhythm Other: CHEST: Right port GI: Auscultation: normal bowel sounds Skin: General skin exam: normal color and no rashes or lesions noted Wounds: no wounds Neuro: General: gait normal Cranial nerves: Yes Equal, round and reactive pupils present Speech: normal speech Motor exam (neuro): 5/5 motor strength present throughout Sensory Exam: normal sensation Extrem: General: normal to inspection Psych: Mental Status: mental status grossly normal Affect: normal affect Objective Data Vital Signs Vital Signs: Vital Signs - 24 hr 08/07/25 16:00 08/07/25 16:00 08/07/25 20:00 Temperature 98.0 F Pulse Rate 80 78 82 Respiratory Rate 18 Blood Pressure 117/78 Pulse Oximetry 98 Oxygen Delivery Room Air Oxygen Flow Rate 08/07/25 21:37 08/08/25 00:00 08/08/25 00:00 Temperature 97.3 F L Pulse Rate 70 81 73 Respiratory Rate 20 Blood Pressure 114/67 Pulse Oximetry 95 Oxygen Delivery Room Air Oxygen Flow Rate 08/08/25 00:01 08/08/25 03:55 08/08/25 06:01 Temperature Pulse Rate 72 72 Respiratory Rate 16 Blood Pressure Pulse Oximetry 95 93 Oxygen Delivery Oxygen Flow Rate 0 08/08/25 06:18 08/08/25 07:40 08/08/25 08:32 Temperature 98.1 F Pulse Rate 78 74 74 Respiratory Rate 16 18 Blood Pressure 122/79 Pulse Oximetry 95 95 Oxygen Delivery Room Air Oxygen Flow Rate 08/08/25 08:35 08/08/25 08:35 08/08/25 11:20 Temperature Pulse Rate 74 67 84 Respiratory Rate 18 20 Blood Pressure Pulse Oximetry 95 96 Oxygen Delivery Room Air Oxygen Flow Rate 0 08/08/25 11:26 08/08/25 12:00 Temperature Pulse Rate 73 70 Respiratory Rate 20 Blood Pressure Pulse Oximetry 99 Oxygen Delivery Oxygen Flow Rate 0 Intake/Output Intake/Output: Intake & Output 08/05/25 08/06/25 08/07/25 08/08/25 23:59 23:59 23:59 23:59 Intake Total 55 3930 2390 Output Total 2825 200 Balance 55 1105 2190 Meds/Results Medications: Active Medications Generic Name Dose Route Start Last Admin Trade Name Freq PRN Reason Stop Dose Admin Acetaminophen 650 mg 08/06/25 17:36 Acetaminophen 325 Mg Tablet PO Q4H PRN Mild Pain (1-3) or Fever Hydrocodone Bitart/Acetaminophen 1 tab 08/07/25 10:25 08/08/25 08:32 Hydrocodone/Acetaminophen (*Crx) 5-325 Mg Tablet PO 1 tab Q4H PRN Administration Cough Albuterol/Ipratropium 3 ml 08/06/25 18:30 08/08/25 11:20 Ipratropium 0.5 Mg/Albuterol Sulfate 2.5 Mg (Base) Ampul.Neb 3 Ml INHALATION 3 ml Q6HRT ANNABELLE Administration Amlodipine Besylate 5 mg 08/07/25 10:25 08/08/25 08:31 Amlodipine Besylate 5 Mg Tablet PO 5 mg DAILY ANNABELLE Administration Azithromycin 500 mg 08/07/25 10:25 08/08/25 08:30 Azithromycin 250 Mg Tablet PO 500 mg DAILY ANNABELLE Administration Baclofen 10 mg 08/07/25 10:18 08/07/25 21:37 Baclofen 10 Mg Tablet PO 10 mg Q8HR PRN Administration Muscle Spasm Benzocaine 1 lozenge 08/07/25 10:24 08/08/25 08:30 Benzocaine/Menthol (*Bkc) Lozenge PO 1 lozenge Q2H PRN Administration Sore Throat Budesonide 0.5 mg 08/07/25 10:25 08/08/25 06:00 Budesonide Respule Neb 0.5 Mg/2 Ml Amp INHALATION 0.5 mg Q12HRT ANNABELLE Administration Carvedilol 12.5 mg 08/07/25 10:35 08/08/25 08:32 Carvedilol 12.5 Mg Tablet PO 12.5 mg Q12HR ANNABELLE Administration Guaifenesin 1,200 mg 08/07/25 10:25 08/08/25 08:32 Guaifenesin 12 Hr 600 Mg Tabcr PO 1,200 mg Q12HR ANNABELLE Administration Ceftriaxone Sodium 1 gm/ 50 mls @ 100 mls/hr 08/07/25 11:00 08/08/25 11:45 Sodium Chloride IVPB Infused Q24H ANNABELLE Infusion Isosorbide Mononitrate 120 mg 08/07/25 10:40 08/08/25 08:31 Isosorbide Mononitrate 60 Mg Tab.Er.24h PO 120 mg DAILY ANNABELLE Administration Loratadine 10 mg 08/07/25 10:25 08/08/25 08:31 Loratadine 10 Mg Tablet PO 10 mg QAM ANNABELLE Administration Nicotine 1 patch 08/07/25 10:25 Nicotine (*Pbkc) 21 Mg Patch TRANSDERM DAILY PRN Nicotine Cravings Ondansetron HCl 4 mg 08/06/25 17:36 Ondansetron Inj 4 Mg/2 Ml Vial IV PUSH Q6H PRN Nausea And Vomiting Pantoprazole Sodium 40 mg 08/07/25 10:25 08/08/25 08:32 Pantoprazole 40 Mg Tablet PO 40 mg QAM ANNABELLE Administration Prednisone 40 mg 08/08/25 08:00 08/08/25 08:31 Prednisone 20 Mg Tablet PO 40 mg DAILY@0800 ANNABELLE Administration Trazodone HCl 50 mg 08/07/25 10:24 08/07/25 21:37 Trazodone Hcl 50 Mg Tablet PO 50 mg HS PRN Administration Insomnia Radiology Results: ITS Impressions Chest X-Ray 08/06/25 15:45 IMPRESSION: 1. Early developing consolidative process in the left lower lobe. 2. 5 mm right base nodule not as clearly seen. See also report for chest x-ray dated July 30 recommended routine follow-up chest CT. Chest CTA 08/06/25 17:05 IMPRESSION: 1. No evidence of pulmonary emboli. 2. Thoracic aorta shows significant atherosclerotic changes. No evidence of dissection. Emphysematous lungs. Labs Labs: Laboratory Results - last 24 hr 08/08/25 05:30 WBC 11.1 H RBC 3.57 L Hgb 11.2 L Hct 32.9 L MCV 92.2 MCH 31.4 H MCHC 34.0 RDW 13.8 Plt Count 86 L MPV 9.7 % Immature Plt Fraction 1.8 Sodium 138 Potassium 4.1 Chloride 105 Carbon Dioxide 26 Anion Gap 7 BUN 12 D Creatinine 0.68 L Estim Creat Clear Calc 72 Estimated GFR > 60 Glucose 121 H Calculated Osmolality 286 Calcium 8.8 Magnesium 2.2 Total Bilirubin 0.5 AST 24 ALT 26 Alkaline Phosphatase 134 H Total Protein 6.3 Albumin 3.4 L Quality VTE Prophylaxis VTE prophylaxis: mechanical ordered -Patient's previous records reviewed on admission -ER notes reviewed in detail on admission -discussed all findings and current treatment plan with patient/Family/POA -Consultations reviewed for recommendations -Patient's disposition for safe discharge discussed with piano case and bench assembler -radiology imaging, EKG and test results I have personally reviewed and interpreted unless otherwise specified Dictation performed by [employer] direct speech recognition software, therefore exhibitions curator variants and typographical errors may occur. Hospitalist MIPS Advance Care Plan I have confirmed that the patient's Advanced Care Plan is present, code status is documented, or surrogate decision maker is listed in patient medical record.: Yes Medication Reconciliation I have utilized all available resources to obtain, update and review the patients current medications (includes all prescriptions, OTC, herbals, cannabis, and nutritional supplements).: Yes The patient is not eligible for med reconciliation; the patient is in a emergent medical situation where delaying treatment would jeopardize the patients health.: No
[2025-08-08] MEDS: BACLOFEN 10 MG TABLET PO (20:20)
[2025-08-09] VITALS (9 sets, daily range): BP systolic 120–158; BP diastolic 59–78; PULSE 64–84; RESP 20; TEMP 36.7–37.1; O2SAT 95–98
[2025-08-09] MEDS: IPRATROPIUM 0.5 MG/ALBUTEROL SULFATE 2.5 MG (BASE) AMPUL.NEB 3 ML INHALATION ×2 (00:18→06:27)
--- NOTE | 2025-08-09 00:25 | PC.NURSE ---
Pt given a nebulizer treatment which he tolerated well.
--- NOTE | 2025-08-09 02:05 | PC.NURSE ---
Pt asleep and no signs of discomfort noted.
--- NOTE | 2025-08-09 04:10 | PC.NURSE ---
Pt asleep and no signs of discomfort noted.
[2025-08-09] MEDS: BUDESONIDE RESPULE NEB 0.5 MG/2 ML AMP INHALATION (06:32)
--- NOTE | 2025-08-09 06:40 | PC.NURSE ---
Pt given his nebulizer treatment as ordered which he tolerated well.
[2025-08-09 07:09] LABS: Hematocrit 33.5 % (37.0-46.0); Hemoglobin 11.2 g/dL (12.4-15.3); Immature Platelet Fraction Pct 1.2 % (1.0-7.0); Mean Corpuscular HGB Conc 33.4 g/dL (32-36); Mean Corpuscular Hemoglobin 30.9 pg (27.0-31.0); Mean Corpuscular Volume 92.3 fL (78.0-102.0); Platelet Count Result 72 K/mm3 (150-420); Red Blood Count 3.63 M/mm3 (4.70-6.10); White Blood Count 5.1 K/mm3 (4.8-10.8)
[2025-08-09 07:22] LABS: Alanine Aminotransferase 22 U/L (6-50); Albumin Level 3.2 g/dL (3.5-5.1); Alkaline Phosphatase 124 U/L (38-126); Anion Gap 6 mmol/L (4-12); Aspartate Amino Transferase 22 U/L (17-59); Bilirubin,Total 0.5 mg/dL (0.2-1.3); Blood Urea Nitrogen 11 mg/dL (9-20); Calcium 8.5 mg/dL (8.4-10.2); Carbon Dioxide 28 mmol/L (22-30); Chloride 103 mmol/L (98-107); Estimated CRCL calculation 70 ml/min; Estimated Glomerular Filt Rate > 60; Glucose 110 mg/dL (65-110); Magnesium 2.0 mg/dL (1.6-2.3); Osmolality Calculated 284 mOsm/kg (285-295); Potassium 3.9 mmol/L (3.4-5.0); Sodium 137 mmol/L (137-145); Total Protein 6.1 g/dL (6.3-8.2)
[2025-08-09] MEDS: AZITHROMYCIN 250 MG TABLET 500 MG PO (09:03)
[2025-08-09] MEDS: PANTOPRAZOLE 40 MG TABLET PO (09:03)
[2025-08-09] MEDS: LORATADINE 10 MG TABLET PO (09:04)
[2025-08-09] MEDS: ISOSORBIDE MONONITRATE 60 MG TAB.ER.24H 120 MG PO (09:04)
[2025-08-09] MEDS: BENZOCAINE/MENTHOL (*BKC) LOZENGE 1 LOZENGE PO (09:04)
[2025-08-09] MEDS: guaiFENesin 12 HR 600 MG TABCR 1200 MG PO (09:04)
[2025-08-09] MEDS: HYDROcodone/acetaminophen (*CRX) 5-325 MG TABLET 1 TAB PO (09:11)
--- NOTE | 2025-08-09 09:38 | P.DS_ITS ---
DS: Admitting Diagnosis Discharge Date 08/09/2025 Admitting Diagnosis COPD Exacerbation/ pneumonia DS: Discharge Diagnosis Discharge Diagnosis (1) Acute exacerbation of chronic obstructive pulmonary disease: Code(s): J44.1 - Chronic obstructive pulmonary disease with (acute) exacerbation Status: Acute Assessment and Plan: CTA showing emphysema no PE chest x-ray showing possible left lower lobe pneumonia * Bronchodilators Q6hr * Pulmicort * incentive spirometry while awake. * steroids initiated 40mg daily * guaifenesin * azithromycin 500 daily/ IV ceftriaxone * MRSA negative * supplemental oxygen therapy to maintain oxygen 92% * Pep Therapy * Tessalon Perles for cough * added a antihistamine * encouraged smoking cessation/ nicotine patch p.r.n. (2) Pneumonia: Qualifiers: Laterality: left Lung location: lower lobe of lung Pneumonia type: due to unspecified organism Qualified Code(s): J18.9 - Pneumonia, unspecified organism Code(s): J18.9 - Pneumonia, unspecified organism Status: Acute Assessment and Plan: CXR LLL * SEE ABOVE #1 * monitor blood cultures NGTD (3) Positive blood culture: Code(s): R78.81 - Bacteremia Status: Acute Assessment and Plan: Positive anaerobic bottle on 07/30/2025 from patient's new port site Staphylococcus epidermidis from his port site. I did speak with patient's oncologist Dr Pagan regarding findings. I have repeated blood cultures at this time as discussed we will monitor F/U cultures to determine if this was a a contamination or concern for port site infection continued to be in contact with patient's oncologist regarding these findings. on evaluation no signs of infection * continue to monitor follow up cultures * will start antibiotic treatment if follow-up cultures come back positive * if cultures do come back positive patient may require removal of port (4) Cancer of liver: Qualifiers: Liver malignancy type: unspecified liver malignancy Qualified Code(s): C22.9 - Malignant neoplasm of liver, not specified as primary or secondary Code(s): C22.9 - Malignant neoplasm of liver, not specified as primary or secondary Status: Acute Assessment and Plan: Started treatment last week * monitor labs and port site * F/U outpatient with oncologist (5) CAD (coronary artery disease): Code(s): I25.10 - Atherosclerotic heart disease of [place] coronary artery without angina pectoris Status: Acute Assessment and Plan: * continued atorvastatin (6) Hypertension: Code(s): I10 - Essential (primary) hypertension Status: Acute Assessment and Plan: * continue amlodipine and carvedilol * monitor BP per unit protocol (7) Thrombocytopenia: Code(s): D69.6 - Thrombocytopenia, unspecified Status: Acute Assessment and Plan: PLT he is 68 secondary to patient's liver cancer * trend labs * monitor for bleeding DS: Summary Hospital Course Reason for hospitalization: COPD exacerbation/ pneumonia Hospital Course: Admission: Patient is a 62-year-old male with a past medical history of COPD, HTN, CAD, good, and current treatment for liver cancer who presented to the emergency department with worsening shortness a breath and progressive nonproductive cough for the last 3 weeks with no relief from OTC medication. Patient had recently been started on chemotherapy at which time he did blood cultures drawn from his support as well as an outpatient chest x-ray and labs. patient presented to our ER with worsening shortness a breath had been prescribed Tessalon Perles for cough what was unable to afford them and reports his inhaler had ran out as well. In the ED: labs fairly unremarkable, RSV/ COVID/influenza negative however CXR did show possible early development of left lower lobe pneumonia follow-up CTA with no PE but did show emphysema. Patient was given IV Zosyn, IV methylprednisone and nebulizer treatment in the ED Hospital Course: Patient admitted to the medical unit and treated for COPD exacerbation with significant nonproductive cough, tachypnea and sore throat overall soreness from coughing. after evaluation of patient's previous blood cultures on 07/30/2025 patient's anaerobic bottle came back positive for Staphylococcus epidermidis from his port site. I did speak with patient's oncologist Dr Pagan regarding findings. I have repeated blood cultures at this time as discussed we will monitor F/U cultures to determine if this was a a contamination or concern for port site infection continued to be in contact with patient's oncologist regarding these findings. Blood Cultures remained negative thoughout hospitalization likely contaminated and treatment deferred. Patient was treated with prednisone, Duonebs, and azithromyocin with overall improvement to symptoms and cough improved. Patient seen and assessed at time of discharge with improved respiratory status and remained on room air with no need for supplemental oxygen. Patient did report he has plan to stop smoking. Patient was discharged to home did refill most of his prescriptions including inhalers. Status at Discharge Functional status at discharge: independent ambulation Overall status at discharge: patient is progressing back to baseline Time Spent with Patient Time attestation: Total time spent providing and/or coordinating discharge services: Time spent: Greater than 30 minutes Exam Const: General: no acute distress Other: Pleasant male with persists salt significant nonproductive cough HENMT: Mouth: Yes dry mucous membranes Eyes: General: appearance normal, both eyes and all related structures Sclera: sclerae normal Pupils: Equal, round and reactive pupils present Neck: Neck: supple Resp: Auscultation: rhonchi and wheezes Other: significant Non-productive cough, tachypnea improving Cardio: Rate: regular rate Rhythm: regular rhythm Other: CHEST: Right port GI: Auscultation: normal bowel sounds Skin: General skin exam: normal color and no rashes or lesions noted Wounds: no wounds Neuro: General: gait normal Cranial nerves: Yes Equal, round and reactive pupils present Speech: normal speech Motor exam (neuro): 5/5 motor strength present throughout Sensory Exam: normal sensation Extrem: General: normal to inspection Psych: Mental Status: mental status grossly normal Affect: normal affect DS: Data Data Completed and Pending Labs on day of discharge: Labs from last 24 hours 08/09/25 06:53 WBC 5.1 RBC 3.63 L Hgb 11.2 L Hct 33.5 L MCV 92.3 MCH 30.9 MCHC 33.4 RDW 13.8 Plt Count 72 L MPV 9.7 % Immature Plt Fraction 1.2 Sodium 137 Potassium 3.9 Chloride 103 Carbon Dioxide 28 Anion Gap 6 BUN 11 Creatinine 0.70 Estim Creat Clear Calc 70 Estimated GFR > 60 Glucose 110 Calculated Osmolality 284 L Calcium 8.5 Magnesium 2.0 Total Bilirubin 0.5 AST 22 ALT 22 Alkaline Phosphatase 124 Total Protein 6.1 L Albumin 3.2 L Imaging Radiologist's impression: Radiology Results: ITS Impressions Chest X-Ray 08/06/25 15:45 IMPRESSION: 1. Early developing consolidative process in the left lower lobe. 2. 5 mm right base nodule not as clearly seen. See also report for chest x-ray dated July 30 recommended routine follow-up chest CT. Chest CTA 08/06/25 17:05 IMPRESSION: 1. No evidence of pulmonary emboli. 2. Thoracic aorta shows significant atherosclerotic changes. No evidence of dissection. Emphysematous lungs. Discharge Plan Discharge Attending physician on discharge: Ruperto Ryan Consulting providers: Vi Santa; Kyle Person; Dez Rodrigues; Elis Vernon Discharging Clinician: Vi Santa Anticipated Discharge Date/Time: 08/09/25 09:41 Patient Disposition: Home Activity: may shower and as tolerated Diet: regular Discharge Instructions: 1). COPD/ pneumonia * I have prescribed oral antibiotic therapy please take as indicated incomplete even if feeling better * continue to use incentive spirometer and PEP therapy at home * recommend continued use of OTC Mucinex to help with secretions * encouraged smoking cessation * avoid irritants * I have also prescribed an antihistamine to take daily How can you care for yourself at home? ? Keep track of any new symptoms or changes in your symptoms. ? Rest until you feel better. ? Be safe with medicines. Take your medicines exactly as prescribed. Call your doctor if you think you are having a problem with your medicine. ? Do not drive after taking a prescription pain medicine. ? Ensure to follow-up with primary care physician as indicated and provide updated medication list provided to you at discharge. When should you call for help? Call 911 anytime you think you may need emergency care. For example, call if: ? You passed out (lost consciousness). Call your doctor now or seek immediate medical care if: ? You have new symptoms like fever, difficulty breathing, Chest pain, vomiting, or rash. ? You have new or different pain. ? You are confused and are having trouble thinking clearly. ? Your symptoms are getting worse. Watch closely for changes in your health, and be sure to contact your doctor if: ? You do not get better as expected. Patient Instructions: Antibiotic Form, Amoxicillin (By mouth), Azithromycin (By mouth), COPD (Chronic Obstructive Pulmonary Disease) (DC), Community Acquired Pneumonia (DC), Fall Prevention (DC), Chronic Lung Disease and Infection Prevention (DC), Dyspnea Scale and Exercise (DC) Patient Language: Gibraltarian Stand Alone Forms: General Discharge Information Follow-up/Referrals: Grupo,MD Krishna [Primary Care Provider, Family Practice] - 2 weeks Discharge Medications: New azithromycin [Zithromax] 250 mg Tablet 500 mg PO DAILY Qty: 4 0RF baclofen 10 mg Tablet 10 mg PO Q8HR PRN (Reason: Muscle Spasm) Qty: 30 0RF guaifenesin [Mucus Relief ER] 600 mg Tablet Extended Release 12hr 1,200 mg PO Q12HR Qty: 30 0RF hydrocodone-acetaminophen 5-325 mg Tablet 1 tablet PO Q6-8H PRN (Reason: Cough) Qty: 15 0RF prednisone 20 mg Tablet 40 mg PO DAILY@0800 Qty: 4 0RF loratadine 10 mg Tablet 10 mg PO QAM Qty: 30 0RF amoxicillin-pot clavulanate 875-125 mg tablet 1 tablet PO Q12H Qty: 4 0RF Continued omeprazole 40 mg capsule,delayed release(DR/EC) 40 mg PO DAILY carvedilol 12.5 mg tablet 12.5 mg PO Q12H Qty: 60 0RF amlodipine 5 mg tablet 5 mg PO DAILY Qty: 30 0RF isosorbide mononitrate 120 mg tablet extended release 24 hr 120 mg PO DAILY Qty: 30 0RF albuterol sulfate [Ventolin HFA] 90 mcg/actuation HFA aerosol inhaler 2 inh inhalation QID PRN (Reason: shortness of breath or wheezing) Qty: 1 0RF Date of admission: 08/07/25 12:38 Primary Care Provider: SimaKrishna Admitting Provider: Ruperto Ryan Attending physician on admission: Ruperto Ryan Condition: Stable Quality VTE Prophylaxis VTE prophylaxis: mechanical ordered -Patient's previous records reviewed on admission -ER notes reviewed in detail on admission -discussed all findings and current treatment plan with patient/Family/POA -Consultations reviewed for recommendations -Patient's disposition for safe discharge discussed with casework manager -radiology imaging, EKG and test results I have personally reviewed and interpreted unless otherwise specified Dictation performed by amprice direct speech recognition software, yunior flute polisher variants and typographical errors may occur. Hospitalist MIPS Heart Failure (Exclusion) Patient has history of Heart Transplant or Left Ventricular Assistive Device?: No IF YES, STOP HERE Heart Failure (Qualifier) Patient has current or prior documentation of LVEF less than or equal to 40%, or mod/servere depressed LVSF?: No IF NO, STOP HERE
--- NOTE | 2025-08-09 15:09 | PC.NURSE ---
Discharge instructions reviewed with patient, verbalized understanding.Patient taken off floor per wheelchair to POV.
--- NOTE | 2025-08-11 09:56 | PC.NURSE ---
Discharge call back attempted, no answer
--- NOTE | 2025-08-13 12:17 | PC.NURSE ---
Follow up call completed, doing ok, has been in contact with PMD no questions regarding medications or instructions
== END 2025-08-09 13:00 | disposition home or self-care (01) | DRG 139 ==
LOC: CHSED 17:29 → CHS2ND 17:42
PROVIDERS: Nurse Practitioner Family; Admitting Provider Internal Medicine; Emergency Provider Emergency Medicine; PCP Family Medicine; Visit Provider Internal Medicine
DX: J18.9 Pneumonia, unspecified organism (principal); J44.1 Chronic obstructive pulmonary disease with (acute) exacerbation; J44.0 Chronic obstructive pulmonary disease with (acute) lower respiratory infection; T80.212A Local infection due to central venous catheter, initial encounter; B99.9 Unspecified infectious disease; R78.81 Bacteremia; C22.9 Malignant neoplasm of liver, not specified as primary or secondary; D69.6 Thrombocytopenia, unspecified; I10 Essential (primary) hypertension; I25.10 Atherosclerotic heart disease of native coronary artery without angina pectoris; J43.9 Emphysema, unspecified; F17.210 Nicotine dependence, cigarettes, uncomplicated; Z92.21 Personal history of antineoplastic chemotherapy; Z20.822 Contact with and (suspected) exposure to COVID-19
CPT/HCPCS: 36415; 36600; 71045; 71275; 80053; 82805; 83605; 83735; 83880; 84484; 85025; 85027; 85055; 85380; 87040; 87637; 87641; 93005; 94640; 94667; 96361; 96365; 96366; 96372; 96375; 99285; A9270; G0378; G0379; J0696; J1650; J1956; J2543; J2919; J7030; J7512; Q9967

== ENCOUNTER 2025-08-16 21:05 | Emergency (ER) | payer OTHER, SELFPAY ==
[2025-08-16] VITALS (7 sets, daily range): BP systolic 126–153; BP diastolic 82–99; PULSE 102–113; RESP 15–26; TEMP 37.1; O2SAT 96–98
--- NOTE | ~2025-08-16 | CT_ITS ---
CT abdomen pelvis w con Clinical History: RIGHT ABDOMEN PAIN/DI BLEED/LIVER CANCER . Comparison: 04/02/2025 Technique: Axial images lung bases to symphysis pubis 100 mL Omnipaque 350 Coronal, sagittal reformats CT images acquired with automatic exposure control for dose reduction DLP: 404 mGy-cm Findings: Lung bases: Clear. Small right epicardial fat pad node. Visualized heart and pericardium: Unremarkable. Liver: Cirrhosis. 4 large masses right lobe with heterogeneous enhancement. At least one ill-defined lesion left lobe. Gallbladder: Stones. Spleen: Unremarkable. Pancreas: Unremarkable. Adrenal glands: Unremarkable. Kidneys: Right kidney- No hydronephrosis. Tiny stone. Left kidney- No hydronephrosis. Tiny stone. Distal esophagus/stomach: Esophageal varices. Small bowel loops: Mild diffuse wall thickening and enhancement. Colon: Normal caliber and wall thickness. Appendix not seen. Liquid contents. Nodes: No enlarged nodes. Peritoneum: No ascites. No free air. Urinary bladder: Unremarkable. Prostate: Prominent. Bones: No acute bony abnormality. Soft tissues: Unremarkable. Aorta: Infrarenal aneurysm at 3.1 cm. IVC: Unremarkable. Main portal vein/SMV/splenic vein: Patent. Probable splenorenal shunt. IMPRESSION: 1. Enteritis, and diarrheal state. 2. Liver masses as before. Reviewed, dictated and finalized at location [facility]. [facility]
--- NOTE | ~2025-08-16 | XR_ITS ---
Examination: XR chest 1V portable Clinical History: Abdominal pain/LIVER CANCER/RECTAL BLEEDING Comparison: 08/06/2025 Technique: Portable AP Findings: Heart size normal. Lungs clear. No acute bony abnormality. IMPRESSION: 1. No acute cardiopulmonary findings given portable technique. Reviewed, dictated and finalized at location [facility]
--- OUTSIDE RECORDS SUMMARY | 2025-08-16 21:08 | XMS_ITS | Encounter Summary ---
Author Organization [facility] Address [facility] [place] [address] Care Team Providers Care Commissary Clerk Name Role Phone Natanael Temple MD Primary Care Provider [phone] Hector Rosenberg MD Unavailable [phone]- [phone] Caprice Rosales MD Unavailable Krishna Gao MD Primary Care Provider Encounter Details Date Type Department Care Team (Late st Contact Info) Description 02/23/2019 Abstract [facility] [address] [place] [address] , Generic MD Roselia Social History Tobacco Use Types Packs/Day Years Used Date Smoking Tobacco: Every Day Cigarettes 0.5 56 Smokeless Tobacco: Never Alcohol Use Standard Drinks/Week Comments No 0 (1 standard drink = 0.6 oz pur e alcohol) Sex and Gender Information Value Date Recorded Sex Assigned at Male 11/07/2024 9:55 AM POOLROOM/POOLHALL MANAGER Legal Sex Male 2:01 AM CDT Gender Identity Not on file Sexual Orientation Not on file Occupation Industry Job Start Date Job End Date Disability Not on file Not on file Not on file documented as of this encounter Plan of Treatment Not on file documented as of this encounter Visit Diagnoses Not on filedocumented in this encounter Care Teams Commissary Clerk Relationship Specialty Start Date End Date Natanael Temple MD [address] [place] [phone] PCP - General FAMILY PRACTICE 10/20/16 06/26/24 Krishna Gao MD [address] [place] [phone] PCP - General FAMILY PRACTICE 06/27/24 Hector Rosenberg MD [address] [place] [phone] [place] Master Rigger CARDIOVASCULAR DISEASE 10/09/17 Caprice Rosales MD [address] [place] [phone] Consulting Physician INFECTIOUS DISEASE 04/03/19 documented as of this encounter
--- OUTSIDE RECORDS SUMMARY | 2025-08-16 21:08 | XMS_ITS | Clinical Summary ---
Author Organization [facility] Address [address] [place] [address] Care Team Providers Care Instrumentation And Controls Technician Name Role Phone Krishna Gao MD Primary Care Provider Chantell Michael MD Unavailable Henry Gr MD Unavailable [phone] Nick Leal MD Unavailable [phone] Allergies Active Allergy Reactions Criticality Noted Date [...] (09/03/2020): Added automatically from request for surgery [id number] Elevated d-dimer Abdominal aortic aneurysm (AAA) without [...] often do you attend chur ch or buddhism services? Never 03/17/2023 Do you belong to any clubs o r organizations such as nondenominational groups, unions, fraternal or athletic groups, or [...] place to sleep or slept in a penitentiary (including now)? No 03/17/2023 Personal Safety Answer Date Recorded Getting School Help Needed Not on file 03/23 Sex and Gender Information Value Date Recorded Sex Assigned at Not on file Legal Sex Male 9:35 AM CHIEF GUARD Gender Identity Not on file Sexual Orientation [...] 3:00 AM CDT COLONOSCOPY 09/08/2020 7:47 AM CHIEF GUARD from Last 3 Months or Most Recently [...] Jose Nelson M.D. KT: ABDIAS Report ID: [id number] Reading Location: [place] [address] Procedure Note Jose Nelson MD - 03/16/2023 [...] Jose Nelson M.D. KT: KT Report ID: [id number] Reading Location: [id number] Thiago Galloway MD IMG CT PROCEDURES Final Result * (ABNORMAL) Hepatitis panel, acute (01/20/2023 3:00 AM CDT) Hep A IgM Nonreactive Nonreactive [facility] (SANJUANITA) Comment: Interpretive Data: If Hep A IgM Ab is reported as Equivocal, a new sample should be drawn in two weeks for testing. Current interpretive data was last revised on 19. Testing performed by: [address] [address] Hep B core IgM Nonreactive Nonreactive [facility] (SANJUANITA) Comment: Interpretive Data If HepB Core IgM Ab is reported as Equivocal, a new sample should be drawn in two weeks for testing. Current interpretive data was last revised on 19. Testing performed by: [address] [address] Hep C Ab Reactive(A) Nonreactive [facility] [...] revised on 2019. Testing performed by: [address] [address] HepBsAg Nonreactive Nonreactive [facility] (SANJUANITA) Comment:Testing performed by : [address] [address] Blood 01/20/2023 3:00 AM CDT 01/20/2023 9:09 AM CDT Holly MARQUEZ LAB MICROBIOLOGY - GENER AL ORDERABLES Final Result [id number] (SANJUANITA) [address] [facility] Department [place] [address] * COLONOSCOPY (09/08/2020 7:47 AM CHIEF GUARD) Anatomical Region Laterality Modality Other Narrative Procedure Note Deirdre Ayala MD - 09/08/2020 7:47 AM CST [facility] Endoscopy Lab Patient Name: Richard Wing [...] pathology results. Procedure Code(s): --- Professional --- [address], Colonoscopy, flexible; with removal oftumor(s), polyp(s), or other lesion(s) by snare technique 89117, 59, Colonoscopy, flexible; with removal of tumor(s), polyp(s), or other lesion(s) by hot biopsy forceps Diagnosis Code(s): --- Professional --- Z86.010, Personal history of colonic polyps D12.4, Benign neoplasm of descending colon D12.3, Benign neoplasm of transverse colon (hepatic flexure or splenic flexure) D12.5, Benign neoplasm of sigmoid colon K64.8, Other hemorrhoids CPT copyright 2017 [employer]. All rights reserved. The codes documented in this report are preliminary and upon tap and die maker technician reviewmay be revised to meet current compliance requirements. Electronically signed by Deirdre Ayala M.D. Deirdre Ayala M.D. 09/08/2020 8:47:29 AM Number of Addenda: 0 Note Initiated On: 09/08/2020 7:47 AM Deirdre Ayala MD ENDOSCOPY PROCEDURES Fi nal Result from Last 3 Months or Most Recently Relevant to Health Maintenance Insurance Advance Directives For more information, please contact: [phone] * Full Code (Latest Code Status on File) Date Activated Date Inactivated Comments 03/16/2023 8:04 PM 03/19/2023 2:43 PM * Full Code Date Activated Date Inactivated Comments 01/19/2023 8:48 AM 01/21/2023 3:59 PM Care Teams Instrumentation And Controls Technician Relationship Specialty Start Date End Date Krishna Gao MD PCP - General Family Medicine 12/17/21 Chantell Michael MD [address] [place] [address] [address] [place] [address] Consulting Physician Gastroenterology 01/21/23 Henry Gr MD [address] [place] [address] [address] [place] [address] Consulting Physician Hematology and Oncology 02/22/23 Nick Leal MD [address] [place] [address] [address] [place] [address] Consulting Physician Gastroenterology 03/19/23
--- OUTSIDE RECORDS SUMMARY | 2025-08-16 21:08 | XMS_ITS | Clinical Summary ---
Author Organization [facility] Address [address] [place] [address] Phone Care Team Providers Care Migratory Game Bird Biologist Name Role Phone Inocente Beltran APRN, JANI [...] Comments Blood Pressure 116/68 09/01/2022 9:19 AM SERVICE COUNSELOR Pulse 75 09/01/2022 9:19 AM SERVICE COUNSELOR Temperature 36.3 C (97.4 F) 08/20/2019 4:44 PM SERVICE COUNSELOR Respiratory Rate 17 08/20/2019 5:20 PM SERVICE COUNSELOR Oxygen Saturation 98% 08/20/2019 5:20 PM SERVICE COUNSELOR Inhaled Oxygen Concentration - - Weight 63.5 kg (140 lb) 09/01/2022 9:03 AM SERVICE COUNSELOR Height 170.2 cm (5' 7) 09/01/2022 9:03 AM SERVICE COUNSELOR Body Mass Index 21.93 09/01/2022 9:03 AM SERVICE COUNSELOR Plan of Treatment Health Maintenance Due Date [...] Insurance MEDICAID [employer] Care Teams Migratory Game Bird Biologist Relationship Specialty Start Date End Date Inocente Beltran APRN, LAB CLERK [address] [address] PCP - General Advanced Practice Nurse 06/21/22
--- OUTSIDE RECORDS SUMMARY | 2025-08-16 21:08 | XMS_ITS | Encounter Summary ---
Author Organization [facility] Address [address] [place] [address] Care Team Providers Care Sociology Professor Name Role Phone Natanael Temple MD Primary Care Provider [phone] Hector Rosenberg MD Unavailable [phone]- [phone] Caprice Rosales MD Unavailable Krishna Gao MD Primary Care Provider [phone] Encounter Details Date Type Department Care Team (Late st Contact Info) Description 02/02/2016 Abstract [facility] [address] [place] [phone] Nader Doshi MD Social History Tobacco Use Types Packs/Day Years Used Date Smoking Tobacco: Smoker, Current Status Unknown Cigarettes Alcohol Use Standard Drinks/Week Comments No 0 (1 standard drink = 0.6 oz pur e alcohol) Sex and Gender Information Value Date Recorded Sex Assigned at Male 11/07/2024 9:55 AM STEAM 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 Legal Sex Male 2:01 AM CDT Gender Identity Not on file Sexual Orientation Not on file Occupation Industry Job Start Date Job End Date Disability Not on file Not on file Not on file documented as of this encounter Plan of Treatment Not on file documented as of this encounter Visit Diagnoses Not on filedocumented in this encounter Care Teams Sociology Professor Relationship Specialty Start Date End Date Natanael Temple MD [address] [place] [phone] PCP - General FAMILY PRACTICE 10/20/16 06/26/24 Krishna Gao MD [address] [place] [phone] PCP - General FAMILY PRACTICE 06/27/24 Hector Rosenberg MD [address] [place] [phone] [place] Medical Aide CARDIOVASCULAR DISEASE 10/09/17 Caprice Rosales MD [address] [place] [phone] Consulting Physician INFECTIOUS DISEASE 04/03/19 documented as of this encounter
--- OUTSIDE RECORDS SUMMARY | 2025-08-16 21:08 | XMS_ITS | Encounter Summary ---
Author Organization [facility] Address [address] [place] [address] Care Team Providers Care Cemetery Manager Name Role Phone Natanael Temple MD Primary Care Provider [phone] Hector Rosenberg MD Unavailable [phone] Caprice Rosales MD Unavailable Krishna Gao MD Primary Care Provider [phone] Encounter Details Date Type Department Care Team (Late st Contact Info) Description 04/09/2018 Abstract [facility] [address] [place] [phone] Non-Staff, Provider Social History Tobacco Use Types Packs/Day Years Used Date Smoking Tobacco: Smoker, Current Status Unknown Cigarettes 0.5 56 Smokeless Tobacco: Never Alcohol Use Standard Drinks/Week Comments No 0 (1 standard drink = 0.6 oz pur e alcohol) Sex and Gender Information Value Date Recorded Sex Assigned at Male 11/07/2024 9:55 AM SERVICE LINE LAYER Legal Sex Male 2:01 AM CDT Gender [...] PLATELETS LEUKOCYTES REDUCED Routine 09/21/2017 3:43 PM SERVICE LINE LAYER CBC (OUTSIDE LAB) Routine 09/21/2017 documented in this encounter Results * CBC (OUTSIDE LAB) (09/21/2017) WBC 3.8 HGB 13.1 HCT 39.1 PLT 43 RBC 4.30 MCV 91 MCH 30.5 MCHC 33.5 RDW 15.3 09/21/2017 Provider Non-Staff LAB-OUTSIDE/ABSTRACTED Final Result documented in this encounter Visit Diagnoses Not on filedocumented in this encounter Care Teams Cemetery Manager Relationship Specialty Start Date End Date Natanael Temple MD [address] [place], [place] [phone] PCP - General FAMILY PRACTICE 10/20/16 06/26/24 Krishna Gao MD [address] [place] [address] PCP - General FAMILY PRACTICE 06/27/24 Hector Rosenberg MD [address] [place], [place] [address] [place] Liver Trimmer CARDIOVASCULAR DISEASE 10/09/17 Caprice Rosales MD [address] [place], [place] [address] Consulting Physician INFECTIOUS DISEASE 04/03/19 documented as of this encounter
--- OUTSIDE RECORDS SUMMARY | 2025-08-16 21:08 | XMS_ITS | Encounter Summary ---
Author Organization [facility] Address [address] [place] [address] Care Team Providers Care Bushel Worker Name Role Phone Natanael Temple MD Primary Care Provider [phone] Hector Rosenberg MD Unavailable [phone] Caprice Rosales MD Unavailable Krishna Gao MD Primary Care Provider Encounter Details Date Type Department Care Team (Late st Contact Info) Description 03/15/2016 Abstract [facility] [address] [place] [phone] Nader Doshi MD Social History Tobacco Use Types Packs/Day Years Used Date Smoking Tobacco: Smoker, Current Status Unknown Sex and Gender Information Value Date Recorded Sex Assigned at Male 11/07/2024 9:55 AM REFINERY TECHNICIAN Legal Sex Male 2:01 AM CDT [...] on filedocumented in this encounter Care Teams Bushel Worker Relationship Specialty Start Date End Date Natanael Temple MD [address] [place] [phone] PCP - General FAMILY PRACTICE 10/20/16 06/26/24 Krishna Gao MD [address] [place] [phone] PCP - General FAMILY PRACTICE 06/27/24 Hector Rosenberg MD [address] [place] [phone] [place] [employer] Manager CARDIOVASCULAR DISEASE 10/09/17 Caprice Rosales MD [address] [place] [phone] Consulting Physician INFECTIOUS DISEASE 04/03/19 documented as of this encounter
--- OUTSIDE RECORDS SUMMARY | 2025-08-16 21:08 | XMS_ITS | Encounter Summary ---
Author Organization [facility] Address [address] [place] [address] Care Team Providers Care Roadway Technician Name Role Phone Natanael Temple MD Primary Care Provider [phone] Hector Rosenberg MD Unavailable [phone] Caprice Rosales MD Unavailable Krishna Gao MD Primary Care Provider [phone] Encounter Details Date Type Department Care Team (Late st Contact Info) Description 12/02/2017 Abstract [facility] [address] [place] [address] , Generic MD Roselia Social History Tobacco Use Types Packs/Day Years Used Date Smoking Tobacco: Smoker, Current Status Unknown Cigarettes 0.5 56 Smokeless Tobacco: Never Alcohol Use Standard Drinks/Week Comments No 0 (1 standard drink = 0.6 oz pur e alcohol) Sex and Gender Information Value Date Recorded Sex Assigned at Male 11/07/2024 9:55 AM 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 Legal Sex Male 2:01 AM CDT Gender Identity Not on file Sexual Orientation Not on file Occupation Industry Job Start Date Job End Date Disability Not on file Not on file Not on file documented as of this encounter Plan of Treatment Not on file documented as of this encounter Visit Diagnoses Not on filedocumented in this encounter Care Teams Roadway Technician Relationship Specialty Start Date End Date Natanael Temple MD [address] [place] [phone] PCP - General FAMILY PRACTICE 10/20/16 06/26/24 Krishna Gao MD [address] [place] [phone] PCP - General FAMILY PRACTICE 06/27/24 Hector Rosenberg MD [address] [place] [phone] [place] [employer] Teacher CARDIOVASCULAR DISEASE 10/09/17 Caprice Rosales MD [address] [place] [phone] Consulting Physician INFECTIOUS DISEASE 04/03/19 documented as of this encounter
--- OUTSIDE RECORDS SUMMARY | 2025-08-16 21:08 | XMS_ITS | Encounter Summary ---
Author Organization [facility] Address [facility] [place] [address] Care Team Providers Care Buffing Wheel Presser Name Role Phone Natanael Temple MD Primary Care Provider [phone] Hector Rosenberg MD Unavailable [phone] Caprice Roasles MD Unavailable Krishna Gao MD Primary Care Provider [phone] Encounter Details Date Type Department Care Team (Late st Contact Info) Description 04/13/2018 Abstract [facility] [address] [place] [address] Non-Staff, Provider Social History Tobacco Use Types Packs/Day Years Used Date Smoking Tobacco: Smoker, Current Status Unknown Cigarettes 0.5 56 Smokeless Tobacco: Never Alcohol Use Standard Drinks/Week Comments No 0 (1 standard drink = 0.6 oz pur e alcohol) Sex and Gender Information Value Date Recorded Sex Assigned at Male 11/07/2024 9:55 AM NEWSWRITER Legal Sex Male 2:01 AM CDT Gender [...] on filedocumented in this encounter Care Teams Buffing Wheel Presser Relationship Specialty Start Date End Date Natanael Temple MD [address] [place] [phone] PCP - General FAMILY PRACTICE 10/20/16 06/26/24 Krishna Gao MD [address] [place] [phone] PCP - General FAMILY PRACTICE 06/27/24 Hector Rosenberg MD [address] [place] [phone] [place] [employer] Inspector CARDIOVASCULAR DISEASE 10/09/17 Caprice Rosales MD [address] [place] [phone] Consulting Physician INFECTIOUS DISEASE 04/03/19 documented as of this encounter
--- NOTE | 2025-08-16 21:12 | ED_ITS ---
HPI - Abdominal Pain General Chief Complaint: Abdominal Pain Stated Complaint: stomach issues Time Seen by Provider: 08/16/25 21:10 Source: patient Mode of arrival: ambulatory Limitations: no limitations History of Present Illness HPI narrative: 70 years old white male came to the ED by private car from home complaining of abdominal pain started 1 week ago. Associated with diarrhea on average 8 episodes a day, bloody watery stools. Today patient vomited once. He denies any fever or chills chest pain shortness of breath or coughing. History of liver cancer, last chemotherapy 11 days ago. History of hypertension, smokes cigarettes, uses marijuana daily, does not drink alcohol. Related Data Home Medications ?Medication ?Instructions ?Recorded ?Confirmed ?Last Taken ?Type omeprazole 40 mg capsule,delayed 40 mg PO DAILY 08/06/25 08/06/25 History release Allergies Allergy/AdvReac Type Severity Reaction Status Date / Time codeine Allergy Intermediate Chest Pain Verified 08/16/25 21:31 diphenhydramine (From AdvReac Mild Jittery Verified 08/16/25 21:31 Benadryl) Review of Systems 2 Review of Systems: All systems reviewed & are unremarkable except as noted in HPI and below PMFSH Past Medical History Medical History Thrombocytopenia Hypertension CAD (coronary artery disease) Cancer of liver Acute exacerbation of chronic obstructive pulmonary disease Patient denies medical problems Social History Social History Smoking packs per day: 0.5 Smoking cigarettes per day: 10.0 Years smoked: 54 Smoking pack-years: 27.00 Smoking status: Current some day smoker Tobacco type: cigarettes Second hand tobacco smoke exposure: Yes Exam 2 Narrative: General appearance: Well-developed, malnourished Skin: Normal color Head: Normocephalic, nontraumatic Eyes: Clear conjunctiva ENT: Oropharynx normal, ears normal, nose normal Neck: Supple, nontender Chest and respiratory: Airway patent, no respiratory distress, no accessory muscle use Heart: Regular rate/rhythm Abdomen: Soft, diffuse abdominal tenderness mainly right side, no guarding or rebound, no organomegaly, quiet bowel sounds Vascular: Normal peripheral pulses, normal capillary refill. Musculoskeletal: Normal range of motion, nontender back Neurologic: Alert and oriented ?3, ELECTRIC METER TECHNICIAN is normal as tested, no gross motor deficit Course Consultations Consultation #1: Dr Herzog, vascular surgeon on-call Date: 08/17/25 Consultation #2: Dr Connor, hospitalist on-call who accepted patient transfer to [facility] Vital Signs Vital signs: Vital Signs Temperature 37.1 C 08/16/25 21:08 Pulse Rate 110 H 08/16/25 21:08 Respiratory Rate 15 08/16/25 21:08 Blood Pressure 146/99 H 08/16/25 21:08 Pulse Oximetry 96 08/16/25 21:08 Oxygen Delivery Room Air 08/16/25 21:08 Temperature 37.1 C 08/16/25 21:08 Pulse Rate 110 H 08/17/25 00:01 Respiratory Rate 18 08/17/25 00:01 Blood Pressure 114/90 08/17/25 00:01 Pulse Oximetry 90 08/17/25 00:01 Oxygen Delivery Room Air 08/16/25 21:08 MDM - Abdominal Pain MDM Narrative Medical decision making narrative: Patient came to the ED with abdominal pain, diarrhea and vomiting Vital signs showing blood pressure 146/99, heart rate 110 otherwise within normal limit Physical examination showing debilitating, malnourished patient with diffuse abdominal tenderness Differential diagnosis include dehydration, electrolyte imbalance, gastroenteritis, chemotherapy related symptoms, progression of liver cancer, urinary tract infection, diverticulitis, colitis, appendicitis, cholecystitis Blood workup today includes CBC, CMP, lipase, blood culture, coags and lactic acid showed WBC 12.7, platelet 104, lactic acid 2.7, total bilirubin 1.8, C- reactive protein 2.8, Urine analysis showed evidence of infection CT abdomen and pelvis with IV contrast showed mild enteritis. Hepatic steatosis. Multiple hepatic lesions measuring up to 4 0.5 cm with a to ration mass enhancement may reflect a metastasis. Infrarenal abdominal aortic aneurysm 3.3 cm with more all thrombus, cholelithiasis. Chest x-ray showed no pneumonia, pneumothorax, pleural effusion Diagnosis: Abdominal pain, enteritis, cholelithiasis, hepatic metastasis, infrarenal abdominal aortic aneurysm with thrombus. Transferred to [facility], accepted by Dr. Connor Differential Diagnosis Differential diagnosis: Likely abdominal pain, acute appendicitis, calculus of kidney, constipation, diverticulitis, gastroenteritis, pancreatitis and other (As above) Medical Records Attestation: I reviewed the patient's medical records. Lab Data Attestation: I reviewed the patient's lab results. 08/16/25 22:01 08/16/25 22:01 Labs: Lab Results 08/16/25 08/16/25 08/17/25 Range/Units 22:01 23:03 00:28 WBC 12.7 H (4.8-10.8) K/mm3 RBC 4.61 L (4.70-6.10) M/mm3 Hgb 14.4 (12.4-15.3) g/dL Hct 42.1 (37.0-46.0) % MCV 91.3 (78.0-102.0) fL MCH 31.2 H (27.0-31.0) pg MCHC 34.2 (32-36) g/dL RDW 14.6 H (11.6-14.4) % Plt Count 104 L (150-420) K/mm3 MPV 9.0 (8.7-11.0) fl Immature Gran % (Auto) 0.4 H (0.0-0.0) % Neut % (Auto) 88.2 H (50.0-70.0) % Lymph % (Auto) 3.2 L (18.0-42.0) % [place] % (Auto) 7.3 (2.0-11.0) % Eos % (Auto) 0.7 L (1.0-6.0) % Baso % (Auto) 0.2 (0.0-1.0) % Lymph # (Auto) 0.41 L (1.10-4.50) K/mm3 [place] # (Auto) 0.93 H (0.10-0.90) K/mm3 Eos # (Auto) 0.09 (0.02-0.50) K/mm3 Baso # (Auto) 0.02 (0.00-0.10) K/mm3 Abs Immat Gran (auto) 0.05 H (0.00-0.00) K/mm3 Absolute Neuts (auto) 11.18 H (1.70-7.20) K/mm3 Absolute Nucleated RBC 0.00 (0.00-0.00) K/mm3 Nucleated RBC % 0.0 (0-0.0) % PT 11.3 (9.50-12.1) Seconds INR 1.0 APTT 26.5 (23.9-30.70) Sec Sodium 137 (137-145) mmol/L Potassium 3.9 (3.4-5.0) mmol/L Chloride 99 (98-107) mmol/L Carbon Dioxide 26 (22-30) mmol/L Anion Gap 12 (4-12) mmol/L BUN 25 H D (9-20) mg/dL Creatinine 0.98 (0.7-1.3) mg/dL Estim Creat Clear Calc 49 ml/min Estimated GFR > 60 (59 - ) Glucose 172 H (65-110) mg/dL Calculated Osmolality 292 (285-295) mOsm/kg Lactic Acid 2.7 H 1.3 (0.7-2.0) mmol/L Calcium 9.1 (8.4-10.2) mg/dL Total Bilirubin 1.8 H (0.2-1.3) mg/dL AST 32 (17-59) U/L ALT 36 (6-50) U/L Alkaline Phosphatase 137 H (38-126) U/L C-Reactive Protein 2.8 H (<1.0) mg/dL Total Protein 7.2 (6.3-8.2) g/dL Albumin 4.1 (3.5-5.1) g/dL Lipase 120 (23-300) U/L Urine Color Dark orange (Yellow) Urine Appearance Cloudy A (Clear) Urine pH 5.5 (5.0-8.0) Ur Specific [place] >= 1.030 H (1.010-1.020) Urine Protein 2+ H (Negative) Urine Glucose (UA) Negative (Negative) Urine Ketones Negative (Negative) Ur Blood (Man) 2+ H (Negative) Urine Nitrate Positive H (Negative) Urine Bilirubin 2+ H (Negative) Urine Urobilinogen 1.0 (0.2-1.0) mg/dL Leukocyte Esterase Rfl Negative (Negative) ANSELMO/UL Urine RBC 6-10 H (0-2) /hpf Urine WBC 10-15 H (0-3) /hpf Urine WBC Clumps Present H (None) /hpf Amorphous Sediment Moderate H (None) Urine Bacteria 2+ H (None) /hpf Hyaline Casts 10-14 H (None) /lpf Granular Casts 3-4 H (None) /lpf Urine Mucus Heavy H /lpf Imaging Data My impression: Chest x-ray showed no acute abnormalities Radiologist's impression: CT abdomen and pelvis with IV contrast showed Mild enteritis. No bowel obstruction. No free air. Punctate nonobstructing left renal calculus. No hydronephrosis. Hepatic steatosis. Multiple hepatic lesions measuring up to 4 point 5 cm with heterogenous enhancement may reflect a metastasis. Multifocal HCC or other etiology. Infrarenal abdominal aortic aneurysm 3.3 cm with mural thrombus Critical Care Time Critical Care Time Critical Care Time: Yes Total Critical Care Time: 30 Discharge Plan Discharge Clinical Impression: Liver mass, Enteritis, Abdominal aortic aneurysm, Bloody diarrhea, Urinary tract infection Patient Disposition: Acute Care Hospital [facility] Condition: Guarded Prognosis Additional Instructions: Transferred to [facility] Patient Language: Malay Prescriptions: No Action omeprazole 40 mg capsule,delayed release(DR/EC) 40 mg PO DAILY azithromycin [Zithromax] 250 mg Tablet 500 mg PO DAILY Qty: 4 0RF baclofen 10 mg Tablet 10 mg PO Q8HR PRN (Reason: Muscle Spasm) Qty: 30 0RF guaifenesin [Mucus Relief ER] 600 mg Tablet Extended Release 12hr 1,200 mg PO Q12HR Qty: 30 0RF hydrocodone-acetaminophen 5-325 mg Tablet 1 tablet PO Q6-8H PRN (Reason: Cough) Qty: 15 0RF prednisone 20 mg Tablet 40 mg PO DAILY@0800 Qty: 4 0RF loratadine 10 mg Tablet 10 mg PO QAM Qty: 30 0RF carvedilol 12.5 mg tablet 12.5 mg PO Q12H Qty: 60 0RF amlodipine 5 mg tablet 5 mg PO DAILY Qty: 30 0RF isosorbide mononitrate 120 mg tablet extended release 24 hr 120 mg PO DAILY Qty: 30 0RF albuterol sulfate [Ventolin HFA] 90 mcg/actuation HFA aerosol inhaler 2 inh inhalation QID PRN (Reason: shortness of breath or wheezing) Qty: 1 0RF amoxicillin-pot clavulanate 875-125 mg tablet 1 tablet PO Q12H Qty: 4 0RF Follow-up/Referrals: Sima,MD Krishna [Primary Care Provider, Family Practice]
[2025-08-16] MEDS: SODIUM CHLORIDE 0.9% IV 2,000 ML 999 ML IV CONT (22:00)
[2025-08-16 22:18] LABS: Hematocrit 42.1 % (37.0-46.0); Hemoglobin 14.4 g/dL (12.4-15.3); Immature Granulocyte Percent A 0.4 % (0.0-0.0); Lymphocytes Absolute Auto 0.41 K/mm3 (1.10-4.50); Mean Corpuscular HGB Conc 34.2 g/dL (32-36); Mean Corpuscular Hemoglobin 31.2 pg (27.0-31.0); Mean Corpuscular Volume 91.3 fL (78.0-102.0); Nucleated Red Blood Cells Absolute Auto 0.00 K/mm3 (0.00-0.00); Nucleated Red Blood Cells Perc 0.0 % (0-0.0); Platelet Count Result 104 K/mm3 (150-420); Red Blood Count 4.61 M/mm3 (4.70-6.10); White Blood Count 12.7 K/mm3 (4.8-10.8)
[2025-08-16 22:27] LABS: Potassium 3.9 mmol/L (3.4-5.0)
[2025-08-16 22:33] LABS: Alanine Aminotransferase 36 U/L (6-50); Albumin Level 4.1 g/dL (3.5-5.1); Alkaline Phosphatase 137 U/L (38-126); Anion Gap 12 mmol/L (4-12); Aspartate Amino Transferase 32 U/L (17-59); Bilirubin,Total 1.8 mg/dL (0.2-1.3); Blood Urea Nitrogen 25 mg/dL (9-20); Calcium 9.1 mg/dL (8.4-10.2); Carbon Dioxide 26 mmol/L (22-30); Chloride 99 mmol/L (98-107); Estimated CRCL calculation 49 ml/min; Estimated Glomerular Filt Rate > 60; Glucose 172 mg/dL (65-110); Lipase 120 U/L (23-300); Osmolality Calculated 292 mOsm/kg (285-295); Sodium 137 mmol/L (137-145); Total Protein 7.2 g/dL (6.3-8.2)
[2025-08-16 22:34] LABS: CRP 2.8 mg/dL (<1.0); INR 1.0; Partial Thromboplastin Time 26.5 Sec (23.9-30.70); Prothrombin Time 11.3 Seconds (9.50-12.1)
--- NOTE | 2025-08-16 23:21 | PC.NURSE ---
Pt resting and on his phone, he reports his abd pain is still a 10. Call cifuentes at side, Pt wanting to go to [place] to transfer. VSS, continuing to monitor.
[2025-08-16 23:26] LABS: Glucose Urine UA Negative (Negative); Leukocyte Esterase Ur Negative LEU/UL (Negative); Nitrate Urine Positive (Negative); Specific Grav Ur >= 1.030 (1.010-1.020)
[2025-08-16] MEDS: ONDANSETRON INJ 4 MG/2 ML VIAL IV PUSH (23:33)
[2025-08-16] MEDS: HYDROmorphone HCL INJ (*CRX) 2 MG/ML VIAL 0.5 MG IV PUSH (23:33)
[2025-08-16 23:49] LABS: Add Urine Microscopic? YES; Appearance Urine Cloudy (Clear)
[2025-08-16] MEDS: PIPERACILLIN/TAZOBACTAM SOD 3.375 GM in SODIUM CHLORIDE 0.9% IV 50 ML 100 ML IVPB (23:49)
--- NOTE | 2025-08-16 23:53 | PC.NURSE ---
Pt resting, stating the pain medicine has helped greatly, lights dimmed and awaiting transfer. Pt informed on POC. Continuing to monitor. VSS.
[2025-08-17 00:01] VITALS: BP 114/90; PULSE 110; RESP 18; O2SAT 90
--- NOTE | 2025-08-17 01:34 | PC.NURSE ---
Pt sleeping, awaiting call back for bed placement at [facility].
--- NOTE | 2025-08-17 01:55 | PC.NURSE ---
Pt informed on transfer and bed assignment. Pt resting, VSS.
[2025-08-17 02:34] VITALS: BP 122/84; PULSE 105; RESP 18; TEMP 36.8; O2SAT 92
--- NOTE | 2025-08-19 14:51 | PC.NURSE ---
FINAL URINE CULTURE REPORT; MIXED UROGENITAL ISHMAEL, NO FURTHER ACTION OR TREATMENT NEEDED PER ERP DR. MACIAS
--- NOTE | 2025-08-20 12:11 | PC.NURSE ---
blood cultures x2 reviewed. no growth in 24 hours.
--- NOTE | 2025-08-21 13:10 | PC.NURSE ---
blood , preliminary. no growth
--- NOTE | 2025-08-24 15:04 | PC.NURSE ---
FINAL BLOOD CULTURE REPORT; NO GROWTH IN 5 DAYS.
== END 2025-08-17 02:36 | disposition short-term general hospital (02) ==
PROVIDERS: Emergency Provider Emergency Medicine; PCP Family Medicine
DX: R16.0 Hepatomegaly, not elsewhere classified (principal); I71.40 Abdominal aortic aneurysm, without rupture, unspecified; R19.7 Diarrhea, unspecified; N39.0 Urinary tract infection, site not specified; I10 Essential (primary) hypertension; F17.210 Nicotine dependence, cigarettes, uncomplicated; I25.10 Atherosclerotic heart disease of native coronary artery without angina pectoris; J44.9 Chronic obstructive pulmonary disease, unspecified; Z85.05 Personal history of malignant neoplasm of liver
CPT/HCPCS: 36415; 71045; 74177; 80053; 81001; 83605; 83690; 85025; 85610; 85730; 86140; 87040; 87086; 96361; 96365; 96375; 99285; J1171; J2405; J2543; J7030; Q9967